=== PATIENT | female | born 1945 | race Caucasian/White ===

== ENCOUNTER 2019-11-16 14:49 | Outpatient (CLI) | payer MEDICARE, OTHER, SELFPAY ==
--- NOTE | 2019-11-16 15:02 | XR_ITS ---
WS: [id number] SCREENING DEXA SCAN [employer] CLINICAL INFORMATION: ASYMPTOMATIC MENOPAUSAL STATE COMPARISON: November 11, 2017 FINDINGS: The L1-L4 bone mineral density measures 1.260 g/cm2. This corresponds to a T score score of 0.7 and Z score of 1.7. Left femoral neck bone mineral density measures 0.890 g/cm2. This corresponds to a T score of -0.9 an d Z score of 0.3. Right femoral neck bone mineral density measures 0.857 g/cm2. This corresponds to a T score -1.2of an d Z score of 0.0. Mean femoral neck bone mineral density measures 0.874 g/cm2. This corresponds to a T score of -1.1 an d Z score of 0.1. XR/XR DEXA axial skeleton* [id number] IMPRESSION: Osteopenia Patient's FRAX calculated 10 year probability for major osteoporotic fracture i s 19.5 % and osteoporotic hip fracture is 4.5%.
== END 2019-11-16 14:50 | disposition home or self-care (01) ==
LOC: RADWPI 14:58
PROVIDERS: Family Provider Family Medicine; PCP Family Medicine; Visit Provider Family Medicine
DX: Z78.0 Asymptomatic menopausal state (principal)
CPT/HCPCS: 77080

== ENCOUNTER → 2019-11-27 08:40 | Outpatient (BNVA) | payer MEDICARE, OTHER, SELFPAY | PROVIDERS: Family Provider Family Medicine; PCP Family Medicine; Visit Provider Anesthesiology | DX: Z76.89 Persons encountering health services in other specified circumstances (principal) | CPT/HCPCS: 99213 ==

== ENCOUNTER → 2020-01-07 08:13 | Outpatient (BNVA) | payer MEDICARE, OTHER, SELFPAY | PROVIDERS: Family Provider Family Medicine; PCP Family Medicine; Visit Provider Anesthesiology | DX: M70.61 Trochanteric bursitis, right hip (principal); M25.551 Pain in right hip; Y93.9 Activity, unspecified; Z79.891 Long term (current) use of opiate analgesic | CPT/HCPCS: 20610; 77003; J1030; J2001; J3490 ==

== ENCOUNTER → 2020-02-10 10:31 | Outpatient (BNVA) | payer MEDICARE, OTHER, SELFPAY | PROVIDERS: Family Provider Family Medicine; PCP Family Medicine; Visit Provider Anesthesiology | DX: G89.29 Other chronic pain (principal); M70.61 Trochanteric bursitis, right hip; M47.816 Spondylosis without myelopathy or radiculopathy, lumbar region; M48.062 Spinal stenosis, lumbar region with neurogenic claudication; M51.17 Intervertebral disc disorders with radiculopathy, lumbosacral region; M50.90 Cervical disc disorder, unspecified, unspecified cervical region; M54.9 Dorsalgia, unspecified; Y93.9 Activity, unspecified; Z79.891 Long term (current) use of opiate analgesic; M54.6 Pain in thoracic spine | CPT/HCPCS: 72070; 99213 ==

== ENCOUNTER 2020-02-10 11:17 | Outpatient (CLI) | payer MEDICARE, OTHER, SELFPAY ==
--- NOTE | 2020-02-10 11:26 | XR_ITS ---
WS: [id number] THORACIC SPINE TECHNIQUE: 3 views of the thoracic spine CLINICAL INFORMATION: pain COMPARISON: October 09, 2017 FINDINGS: Mild thoracic curve convex right. Mild thoracic kyphosis. Disc space heights and vertebral body heigh ts are well preserved. Moderate spondylitic changes. Anterior hypertrophic changes in the mid thoraci c spine. No acute thoracic spine findings. XR/XR thoracic spine 2V [id number] IMPRESSION: Moderate spondylitic changes. No acute thoracic spine findings.
== END 2020-02-10 11:18 | disposition home or self-care (01) ==
LOC: RADWPI 11:21
PROVIDERS: Family Provider Family Medicine; PCP Family Medicine; Visit Provider Anesthesiology
DX: M54.6 Pain in thoracic spine (principal)
CPT/HCPCS: 72070

== ENCOUNTER → 2020-11-17 15:08 | Outpatient (BNVA) | payer MEDICARE, OTHER, SELFPAY | PROVIDERS: PCP Family Medicine; Visit Provider Family Medicine | DX: Z01.812 Encounter for preprocedural laboratory examination (principal); Z20.822 Contact with and (suspected) exposure to COVID-19 | CPT/HCPCS: 87635 ==

== ENCOUNTER 2020-11-21 09:15 | Outpatient (CLI) | payer MEDICARE, OTHER, SELFPAY ==
--- NOTE | 2020-11-21 09:22 | XR_ITS ---
WS: [id number] CHEST 2 VIEWS HISTORY: COUGH/WHEEZING COMPARISON: None available. Lungs: Mild elevation of the LEFT hemidiaphragm with a focal lingular scar. No mass or pneumonia. Cardiac size: Normal. Mediastinum/Aorta: Normal mediastinum. Bones: Slight increase in thoracic kyphosis. XR/XR chest 2V* [id number] IMPRESSION: No acute cardiopulmonary disease. No pneumonia.
--- NOTE | 2020-11-21 13:27 | PFTS_ITS ---
Date of Study:11/21/20 Date of Dictation: MECHANICS: Forced vital capacity (FVC) is normal. Forced expiratory volume in one second (FEV1) is normal. FEV1/FVC is normal. FLOW VOLUME LOOP: Mild scooping at lower lung volumes. LUNG VOLUMES: Total lung capacity (TLC) is increased. Residual volume (RV) is increased. DIFFUSING CAPACITY FOR CARBON MONOXIDE: Normal. INTERPRETATION: The prebronchodilator spirometry is normal. The lung volumes are consistent with hyperinflation and air trapping likely secondary to small airways disease as evidenced by the flow volume loop. Gas exchange (DLCO) is normal. MTDD
== END 2020-11-21 09:16 | disposition home or self-care (01) ==
LOC: RT 09:17
PROVIDERS: PCP Family Medicine; Visit Provider Family Medicine
DX: R05 Cough (principal); R06.2 Wheezing
CPT/HCPCS: 71046; 94010; 94726; 94729

== ENCOUNTER 2021-01-23 12:36 | Outpatient (CLI) | payer MEDICARE, OTHER, SELFPAY ==
--- NOTE | 2021-01-23 12:54 | MM_ITS ---
WS: [id number] BILATERAL SCREENING DIGITAL MAMMOGRAM WITH CAD HISTORY: SCREENING COMPARISON: 03/20/2019 and 01/11/2017 Bilateral CC and MLO views submitted. Computer aided detection analyzed. Breast composition: There are scattered areas of fibroglandular density. No suspicious masses, microc alcifications or architectural distortion. Bilateral scattered calcifications in each breast. MM/[place] [id number] IMPRESSION: BI-RADS: 2-Benign FOLLOW UP: 1 Year Follow-up
== END 2021-01-23 12:37 | disposition home or self-care (01) ==
LOC: RADSHAW 12:43
PROVIDERS: PCP Family Medicine; Visit Provider Family Medicine
DX: Z12.31 Encounter for screening mammogram for malignant neoplasm of breast (principal)
CPT/HCPCS: 77067

== ENCOUNTER 2023-01-22 10:18 | Outpatient (RCR) | payer MEDICARE, OTHER, SELFPAY | END 2023-01-30 23:59 | disposition home or self-care (01) | LOC: SPT 10:18 | PROVIDERS: PCP Family Medicine; Visit Provider Family Medicine | DX: R60.0 Localized edema (principal) | CPT/HCPCS: 29581; 97140; 97161 ==

== ENCOUNTER 2023-01-31 06:00 | Outpatient (RCR) | payer MEDICARE, OTHER, SELFPAY | END 2023-03-01 23:59 | disposition home or self-care (01) | LOC: SPT 06:00 | PROVIDERS: PCP Family Medicine; Visit Provider Family Medicine | DX: R60.0 Localized edema (principal) | CPT/HCPCS: 29581; 97140 ==

== ENCOUNTER 2023-06-17 12:59 | Outpatient (CLI) | payer MEDICARE, SELFPAY ==
--- NOTE | 2023-06-17 13:00 | MM_ITS ---
WS: [id number] BILATERAL 3D TOMOSYNTHESIS DIGITAL SCREENING MAMMOGRAPHY WITH CAD CLINICAL INFORMATION: SCREENING HISTORY: Screening mammogram. No current complaints. COMPARISON: 01/23/2021 TECHNIQUE: Bilateral CC and MLO views. FINDINGS: Scattered fibroglandular densities bilaterally. No suspicious focal mass, asymmetry, calcifications, or architectural distortion. No evidence of malignancy. Punctate and lucent centered calcifications. Vascular calcifications. Biopsy marker LEFT breast. IMPRESSION: MM/[place] [id number] BI-RADS: 2-Benign FOLLOW UP: 1 Year Follow-up Recommend return to annual screening mammography.
== END 2023-06-17 13:00 | disposition home or self-care (01) ==
LOC: MOBLMAM 13:07
PROVIDERS: PCP Family Medicine; Visit Provider Family Medicine
DX: Z12.31 Encounter for screening mammogram for malignant neoplasm of breast (principal)
CPT/HCPCS: 77063; 77067

== ENCOUNTER 2024-06-25 13:00 | Outpatient (CLI) | payer MEDICARE, OTHER, SELFPAY ==
--- NOTE | 2024-06-25 13:00 | MM_ITS ---
WS: [id number] BILATERAL SCREENING DIGITAL TOMOSYNTHESIS MAMMOGRAM WITH CAD HISTORY: SCREENING COMPARISON: 06/17/2023, 01/11/2017, 01/23/2021 Bilateral CC and MLO views with tomosynthesis and synthetic mammography submitted. Computer aided det ection analyzed. Breast composition: There are scattered areas of fibroglandular density. No suspicious masses, microc alcifications or architectural distortion. Heavy calcifications scattered throughout each breast and arterial calcifications. MM/MM scr BI tomosynthesis [id number] IMPRESSION: BI-RADS: 2 - Benign. FOLLOW UP: 1 Year Follow-up
== END 2024-06-25 13:06 | disposition home or self-care (01) ==
PROVIDERS: PCP Family Medicine; Visit Provider Family Medicine
DX: Z12.31 Encounter for screening mammogram for malignant neoplasm of breast (principal); R92.323 Mammographic fibroglandular density, bilateral breasts; R92.1 Mammographic calcification found on diagnostic imaging of breast
CPT/HCPCS: 77063; 77067

== ENCOUNTER 2024-12-21 09:29 | Outpatient (CLI) | payer MEDICARE, OTHER, SELFPAY ==
--- NOTE | 2024-12-21 | ECG_ITS ---
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 Interpretive Statements Lung unchanged pre/post procedure; Intraprocedure shortess of breath; Symptoms resoled by discharge PROCEDURE: At the baseline, the EKG revealed normal sinus rhythm with a poor R wave progression. Possible old septal NV. Some nonspecific T wave changes.. The baseline heart was 90 bpm with a blood pressue of 170/98 mm of Hg Lexiscan was infused over a period of 20 seconds. A total of 0.4 milligrams of Lexiscan was infused. The stress phase was continued for a total of 5 minutes. Heart rate at the end of the stress phase was 107 bpm with a blood pressure 148/83 mm of Hg. The EKG at the peak infusion revealed no significant changes. Sestamibi was injected 20 seconds after the Lexiscan infusion. Heart rate at the end of the recovery phase was in 80s bpm with a blood pressure of 150/73 mm of Hg. CONCLUSION: 1. No significant EKG changes with the LexiScan infusion 2. No LexiScan induced chest pain or cardiac arrhythmia 3. Normal blood pressure and heart rate response 4. Sestamibi/sestamibi perfusion scan pending; see separate report. Electronically Signed On 12-24-2024 17:18:58 CDT by Aury Conrad M.D. [id number]
[2024-12-21 09:46] VITALS: BMI 33.3
--- NOTE | 2024-12-21 09:49 | NMCV_ITS ---
NM agapito perf SPECT r/s* [id number] Idalia Burks Age: 79 Gender: F : 1945 Exam Date: 12/21/2024 11:43 Ordering Phys: Denise Ayala MD Technologist: NEO Hooks Exam Location: [facility] Indications: cp STRESS TEST Please see separate stress test report in [facility] for full findings IMAGE PROTOCOL Rest/Stress 1 Lexiscan Day Radiopharmaceutical Dose (mCi) Administration Site Administered by Rest: Tc-99m 10.5 IV NEO Hooks Sestamibi Stress:Tc-99m 32.9 IV NEO Cannon Sestamibi Rest: 21-Dec-2024 60 Discovery 630 Stress: 21-Dec-2024 30 Discovery 630 0.4mg Lexiscan. Supine position only as patient was unable to lay prone. SPECT RESULTS Technical Quality: Good Raw Data Analysis: Normal Image Corrections: No attenuation or motion correction applied Summed Stress Score: 0 Summed Rest Score: 0 Summed Difference Score: 0 PERFUSION FINDINGS Uniform myocardial tracer uptake with no significant perfusion abnormalities FUNCTIONAL RESULTS (calculated via Gated SPECT) Stress Image LV EF (%): 82 Stress EDV (mL):66 TID: 1.85 Stress ESV (mL):12 FUNCTIONAL FINDINGS: Segmental wall motion analysis revealing no gross wall motion abnormalities IMPRESSIONS 1. Unremarkable Myocardial perfusion imaging 2. Normal LV ejection fraction of 82%. 3. LV wall motion analysis revealing no gross wall motion abnormalities. 4. Normal LV volume 5. Elevated transient ischemic dilatation ratio 1.85 may suggest endocardial ischemia. However the positive predictive value of this finding is low. Consider clinical correlation Advised to copy of the study results from 12/21/2024 Dr Aury Conrad MD [facility] (Electronically Signed) Final Date: 21 December 2024 13:57 Amended: 21 December 2024 14:01 C
[2024-12-21] MEDS: regadenoson 0.4 Mg/5 ml Syringe IVP (11:20)
[2024-12-21 11:30] VITALS: BP 158/65; PULSE 97
== END 2024-12-21 09:30 | disposition home or self-care (01) ==
LOC: CDL 09:35
PROVIDERS: PCP Family Medicine; Visit Provider Family Medicine
DX: R07.9 Chest pain, unspecified (principal); R93.1 Abnormal findings on diagnostic imaging of heart and coronary circulation
CPT/HCPCS: 36415; 78452; 93017; 96374; A9500; J2785

== ENCOUNTER 2025-02-01 13:48 | Outpatient (CLI) | payer MEDICARE, OTHER, SELFPAY ==
--- NOTE | 2025-02-01 13:55 | XR_ITS ---
WS: [id number] XR chest 2V* [id number] REASON FOR EXAM: CHEST PAIN FINDINGS: Chest is unchanged compared to 11/21/2020. Moderate tortuosity and ectasia of the thoracic aorta. Normal heart size. Calcified granulomatous disease bilaterally. No acute pulmonary parenchymal or pleural abnormality. Moderate degenerative spondylosis in the mid and lower thoracic spine. XR/XR chest 2V* [id number] IMPRESSION: Stable chest without acute abnormality.
== END 2025-02-01 13:49 | disposition home or self-care (01) ==
LOC: RAD 13:51
PROVIDERS: PCP Nurse Practitioner Family; Visit Provider Family Medicine
DX: R07.9 Chest pain, unspecified (principal); I77.810 Thoracic aortic ectasia; J84.10 Pulmonary fibrosis, unspecified; M47.894 Other spondylosis, thoracic region
CPT/HCPCS: 71046

== ENCOUNTER 2025-02-18 15:47 | Inpatient (IN) | payer MEDICARE, OTHER, SELFPAY ==
[2025-02-18] VITALS (11 sets, daily range): BP systolic 103–145; BP diastolic 54–80; PULSE 64–162; RESP 16–24; TEMP 34.6–36.5; O2SAT 90–100
--- NOTE | 2025-02-18 16:02 | W.ED.WEAKNES ---
HPI - Weakness General: Chief complaint: Weakness Stated complaint: weakness x 3 days Time Seen by Provider: 02/18/25 15:49 History of Present Illness: 79-year-old female presents with some generalized weakness for about 3 days. She also noticed a change in her urine to become just more dribbles over the last few days. She does have a little bit of a sore throat. EMS reports that when they arrived her blood sugar was 45. She reports she takes oral medications but insulin for her blood sugars. Patient denies any fever or chills or other systemic complaint such as cough, nausea vomiting diarrhea. Associated symptoms: Denies chest pain, chills, fever(s) or headache(s) Review of Systems Const: Reports: fatigue and malaise; Denies: fever(s) or chills ENMT: Reports: throat pain Card: Denies: chest pain or palpitations Resp: Denies: dyspnea or productive cough : Reports: dribbling Musc: Denies: neck pain or back pain Neuro: Denies: headache(s) Psych: Denies: anxiety or depression PFS ED PFSH: Medical History (Updated 02/18/25 @ 19:39 by Simon Hernandez DO) Pain in thoracic spine Chronic back pain Right hip pain Bursitis, trochanteric Lumbar spondylosis Intervertebral disc disorders with radiculopathy, lumbosacral region Spinal stenosis, lumbar region with neurogenic claudication Cervical disc disorder, unspecified, unspecified cervical region Encounter for long-term opiate analgesic use Surgical History Hx of tonsillectomy Hx of vaginal hysterectomy H/O oophorectomy Family History Other CAD (coronary artery disease) Cancer Stroke Social History Smoking and tobacco/nicotine status: never used tobacco/nicotine Alcohol intake: never Substance/Drug Use: never Physical Exam Const: COMMON NORMALS: no acute distress, patient oriented x3 and alert Resp: COMMON NORMALS: normal respiratory effort and clear to auscultation bilaterally AUSCULTATION: clear to auscultation bilaterally Cardio: COMMON NORMALS: regular rate and regular rhythm RATE: regular rate RHYTHM: regular rhythm GI: COMMON NORMALS: Soft to palpation and non-tender PALPATION: Yes Soft to palpation : COMMON NORMALS: Yes no CVA tenderness BLADDER/KIDNEY EXAM: Yes bladder normal to palpation and Yes no CVA tenderness BIMANUAL EXAM - VAGINA & UTERUS: Yes bladder normal to palpation Back/Pelvis: COMMON NORMALS: no CVA tenderness Neuro: COMMON NORMALS: patient oriented x3 SENSORIUM/ORIENTATION: Yes alert Psych: COMMON NORMALS: mental status grossly normal, Normal thought process present and speech normal SPEECH: Yes normal speech THOUGHT PROCESS: Normal thought process present Skin: COMMON NORMALS: no rashes or lesions noted and no wounds GENERAL SKIN EXAM: no rashes or lesions noted Course Vital Signs: Vital signs: Vital Signs Temperature 94.2 F L 02/18/25 16:19 Pulse Rate 84 02/18/25 19:00 Respiratory Rate 24 H 02/18/25 18:00 Blood Pressure 103/78 02/18/25 19:00 Pulse Oximetry 97 02/18/25 19:00 Oxygen Delivery Me thod Room Air 02/18/25 19:00 MDM - Weakness Medical Decision Making Patient's labs were ordered and reviewed. Patient has significant acute kidney injury with elevated BUN, elevated creatinine, elevated potassium. Patient clarified that she has been taking her Lasix 40 mg along with potassium recently. That she has not been drinking as much. Patient will be admitted to Dr. Street for further inpatient management. Patient was stable upon admission to the floor. Lab Data 02/18/25 16:29 02/18/25 16:29 Laboratory Results WBC 11.17 10^3/uL (3.29-11.43) 02/18/25 16: RBC 3.67 10^6/uL (3.85-5.65) L 02/18/25 16:29 Hgb 10.50 g/dL (11.27-16.99) L 02/18/25 16:29 Hct 35.6 % (36-47) L 02/18/25 16:29 MCV 97.0 fl (85-98) 02/18/25 16:29 MCH 28.6 pg (27-33) 02/18/25 16: MCHC 29.5 g/dL (30-55) L 02/18/25 16:29 RDW 13.4 % (12.1-15.1) 02/18/25 16: Plt Count 299 10^3/cmm (157-399) 02/18/25 16: MPV 11.4 fL (7.4-10.4) H 02/18/25 16: Neut % (Auto) 85.6 % 02/18/25 16: Lymph % (Auto) 10.8 % 02/18/25 16: [place] % (Auto) 2.8 % 02/18/25 16: Eos % (Auto) 0.0 % 02/18/25 16: Baso % (Auto) 0.2 % 02/18/25 16: Neut # (Auto) 9.56 10^3/uL (1.8-7.7) H 02/18/25 16: Lymph # (Auto) 1.2 10^3/uL (0.8-4.8) 02/18/25 16: [place] # (Auto) 0.3 10^3/uL (0.2-0.9) 02/18/25 16: Eos # (Auto) 0.0 10^3/uL (0.0-0.8) 02/18/25 16: Baso # (Auto) 0.0 10^3/uL (0.0-0.1) 02/18/25 16: Nucleated RBC % (auto) 0 % 02/18/25 16: Nucleated RBCs # 0.0 /100WBC 02/18/25 16: Sodium 136 mmol/L (136-145) 02/18/25 16: Potassium 6.7 mmol/L (3.5-5.1) H* 02/18/25 16: Chloride 89 mmol/L (98-107) L 02/18/25 16: Carbon Dioxide 11 mmol/L (22-29) L 02/18/25 16: Anion Gap 42.7 (5-19) H 02/18/25 16:29 BUN 63 mg/dL (8-23) H 02/18/25 16: Creatinine 5.7 mg/dL (0.5-0.9) H* 02/18/25 16: GFR Calculation Not Reportable 02/18/25 16: Glucose 87 mg/dL (65-115) 06/19/25 16:29 POC Glucose 140 mg/dL (70-110) H 02/18/25 18:47 Calculated Osmolality 299 mOsm/kg (285-295) H 02/18/25 16: Calcium 11.0 mg/dL (8.5-10.5) H 02/18/25 16:29 Magnesium 1.7 mg/dL (1.7-2.3) 02/18/25 16: Total Bilirubin 0.2 mg/dL (0.15-1.2) 02/18/25 16:29 AST 29 U/L (0-32) 02/18/25 16: ALT 20 U/L (0-33) 02/18/25 16: Alkaline Phosphatase 40 U/L (35-105) 02/18/25 16: Total Protein 7.2 g/dL (6.6-8.7) 02/18/25 16: Albumin 4.2 g/dL (3.5-5.2) 02/18/25 16: Globulin 3.0 g/dL (1.3-4.6) 02/18/25 16:29 Urine Color Yellow (Yellow) 02/18/25 16:03 Urine Appearance Clear (CLEAR) 02/18/25 16:03 Urine pH 6.0 (5-7) 02/18/25 16:03 Ur Specific Ellery 1.011 (1.005-1.030) 02/18/25 16:03 Urine Protein 2+ (Negative) A 02/18/25 16:03 Urine Glucose (UA) Negative (Normal) 02/18/25 16:03 Urine Ketones Trace (Negative) 02/18/25 16:03 Urine Blood Negative (Negative) 02/18/25 16:03 Urine Nitrate Negative (Negative) 02/18/25 16:03 Urine Bilirubin Negative (Negative) 02/18/25 16:03 Urine Urobilinogen 0.2 mg/dL (Negative) 02/18/25 16:03 Ur Leukocyte Esterase Negative (Negative) 02/18/25 16:03 Urine RBC 0-2 /hpf (0-2) 02/18/25 16:03 Urine WBC 0-5 /hpf (0-5) 02/18/25 16:03 Ur Squamous Epith Cells 0-5 /hpf (0-5) 02/18/25 16:03 Amorphous Sediment Not Reportable 02/18/25 16:03 Urine Bacteria None seen /hpf (NONE) 02/18/25 16:03 Hyaline Casts 5.36 /lpf 02/18/25 16:03 Group A Strep Rapid Negative (Negative) 02/18/25 16:10 No radiology studies performed this visit Discharge Plan Discharge Patient Disposition: Admitted As Inpatient Clinical Impression: Acute kidney injury, Dehydration Condition: Stable Coding Level of Care Code ED Business Unit Manager for Chg Fwd Related Data Home Medications ?Medication ?Instructions ?Recorded ?Confirmed albuterol sulfate 90 mcg/actuation 1 inh inhalation .PRN 11/27/19 02/10/20 aerosol inhaler (ProAir HFA) amlodipine 10 mg tablet 10 mg PO DAILY 11/27/19 02/10/20 baclofen 10 mg tablet 10 mg PO DAILY 11/27/19 02/10/20 clonidine 0.1 mg/24 hr weekly transdermal .WEEKLY 11/27/19 02/10/20 transdermal patch diphenhydramine HCl 25 mg tablet 25 mg PO .HS PRN 11/27/19 02/10/20 (Allergy (diphenhydramine)) duloxetine 20 mg capsule,delayed 20 mg PO DAILY 11/27/19 02/10/20 release sprinkle estradiol PO DAILY 11/27/19 02/10/20 gabapentin 100 mg capsule 200 mg PO .HS 11/27/19 02/10/20 gemfibrozil 600 mg tablet 600 mg PO DAILY 11/27/19 02/10/20 glipizide 5 mg tablet 5 mg PO DAILY 11/27/19 02/10/20 hydrocodone 5 mg-acetaminophen 325 1 tab PO TID PRN 11/27/19 02/10/20 mg tablet ([place]) losartan 50 mg tablet 50 mg PO DAILY 11/27/19 02/10/20 meclizine 25 mg tablet 25 mg PO QID PRN 11/27/19 02/10/20 metformin 1,000 mg tablet 1,000 mg PO DAILY 11/27/19 02/10/20 rivaroxaban 20 mg tablet (Xarelto) 20 mg PO DAILY 11/27/19 02/10/20 simvastatin 20 mg tablet 20 mg PO DAILY 11/27/19 02/10/20 sitagliptin phosphate 100 mg 100 mg PO DAILY 11/27/19 02/10/20 tablet (Januvia) tramadol 50 mg tablet 50 mg PO BID PRN 11/27/19 02/10/20 Allergies Allergy/AdvReac Type Severity Reaction Status Date / Time atenolol Allergy Severe ALGY-Anaphy Verified 12/21/24 09:46 laxis lisinopril Allergy Severe ALGY-Anaphy Verified 12/21/24 09:46 laxis
[2025-02-18 16:03] LABS: Glucose Point of Care 101 mg/dL (70-110)
[2025-02-18 16:03] LABS: Glucose Point of Care > 600 mg/dL (70-110)
--- NOTE | 2025-02-18 16:20 | PC.NURSE ---
Pt rectal temp is 94.2, Dr. Hernandez notified, states put warm blankets on pt, charge nurse put extra warm blankets on pt.
[2025-02-18 16:24] LABS: Bilirubin Urine Negative (Negative); Blood Urine Negative (Negative); Glucose Urine UA Negative (Normal); Ketones Urine Trace (Negative); Leukocyte Esterase Urine Negative (Negative); Nitrate Urine Negative (Negative); Protein Urine 2+ (Negative); Specific Gravity, Urine 1.011 (1.005-1.030); Urine Appearance Clear (CLEAR); Urine Color Yellow (Yellow); Urobilinogen Urine 0.2 mg/dL (Negative)
[2025-02-18 16:30] LABS: Add Urine Microscopic? YES; Bacteria Urine None Seen /hpf; Hyaline Casts Urine 5.36 /lpf; RBC Urine 0-2 /hpf (0-2); Squamous Epithelial Cell Urine 0-5 /hpf (0-5); WBC Urine 0-5 /hpf (0-5)
[2025-02-18 16:31] LABS: Rapid Strep A Test Negative (Negative)
[2025-02-18 16:42] LABS: Basophils % 0.2 %; Hematocrit 35.6 % (36-47); Lymphocytes # 1.2 10^3/uL (0.8-4.8); Lymphocytes % 10.8 %; Mean Corpuscular HGB Conc 29.5 g/dL (30-55); Mean Corpuscular Hemoglobin 28.6 pg (27-33); Mean Platelet Volume 11.4 fL (7.4-10.4); Monocytes # 0.3 10^3/uL (0.2-0.9); Monocytes % 2.8 %; Neutrophils # 9.56 10^3/uL (1.8-7.7); Neutrophils % 85.6 %; Nucleated Red Blood Cells % 0 %; Platelet Count 299 10^3/cmm (157-399); Red Blood Count 3.67 10^6/uL (3.85-5.65); Red Cell Distribution Width 13.4 % (12.1-15.1); White Blood Count 11.17 10^3/uL (3.29-11.43)
[2025-02-18 17:13] LABS: Alanine Aminotransferase 20 U/L (0-33); Albumin Level 4.2 g/dL (3.5-5.2); Alkaline Phosphatase 40 U/L (35-105); Anion Gap 42.7 (5-19); Aspartate Amino Transferase 29 U/L (0-32); Blood Urea Nitrogen 63 mg/dL (8-23); Carbon Dioxide 11 mmol/L (22-29); Chloride 89 mmol/L (98-107); Creatinine Clr Calc Pharmacy 7.7315; Glucose 87 mg/dL (65-115); Magnesium 1.7 mg/dL (1.7-2.3); Osmolality Calculated 299 mOsm/kg (285-295); Sodium 136 mmol/L (136-145); Total Bilirubin 0.2 mg/dL (0.15-1.2); Total Protein 7.2 g/dL (6.6-8.7)
[2025-02-18 17:14] LABS: Potassium 6.7 mmol/L (3.5-5.1)
--- NOTE | 2025-02-18 17:19 | ECG_ITS ---
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 Measurements Intervals [place] Rate: 77 P: 0 MN: 0 QRS: 56 QRSD: 82 T: 69 QT: 367 QTc: 416 Interpretive Statements ATRIAL FIBRILLATION LOW QRS VOLTAGE [QRS DEFLECTION < 0.5/1.0 mV IN LIMB/CHEST LEADS] SEPTAL MYOCARDIAL INFARCTION , PROBABLY OLD [40+ ms Q WAVE IN V1/V2] No previous ECG available for comparison Electronically Signed On 02-21-2025 19:31:49 CDT by Sanket Scales M.D. [email or web address] [id number]
--- NOTE | 2025-02-18 17:50 | ECG_ITS ---
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 Measurements Intervals [place] Rate: 86 P: 0 [place]: 0 QRS: 50 QRSD: 98 T: 65 QT: 373 QTc: 449 Interpretive Statements ATRIAL FIBRILLATION LOW QRS VOLTAGE [QRS DEFLECTION < 0.5/1.0 mV IN LIMB/CHEST LEADS] No previous ECG available for comparison Electronically Signed On 02-21-2025 19:43:49 CDT by Sanket Scales M.D. [id number]
[2025-02-18 17:58] LABS: Glucose Point of Care 69 mg/dL (70-110)
[2025-02-18] MEDS: dextrose 10% 250 ML 1000 ML IV ×2 (18:07→22:56)
[2025-02-18] MEDS: calcium gluconate 0.1 gm/mL 10% SDV 10mL 1 GM IVP (18:47)
[2025-02-18] MEDS: insulin regular-human 100 units/1 mL 5 UNIT IVP (18:50)
[2025-02-18 19:04] LABS: Glucose Point of Care 140 mg/dL (70-110)
[2025-02-18] MEDS: sodium chloride 0.9% 500 ML IV (19:49)
[2025-02-18] MEDS: sodium bicarbonate 8.4% syr 150 MEQ in dextrose 5% 200 ML 700 MEQ IV (20:00)
--- NOTE | 2025-02-18 20:09 | PM.HP ---
Providers/Chief Complaint Admitting Physician: Linda Bauer MD--- seen before midnight Primary Care Provider: MAYO Cosem Chief Complaint: weakness x 3 days History of Present Illness Idalia Burks is a 79 year old female with medical history significant for diabetes type 2 on metformin, glipizide, sitagliptin, hypertension on losartan, amlodipine, peripheral edema on Lasix and supplemental potassium to prevent hypokalemia, hypercholesterolemia on statins. All of these renal friendly medication especially when patient is dehydrated landed patient now in an acute renal failure with a creatinine of 5.5 from normal baseline and potassium of 6.7, severe hypoglycemia at 40s per EMS with a repeat in the emergency room of 35 after being optimized on the field hypoglycemic protocol initiated. Patient is admitted to stepdown unit for closer observation and care. I have seen and evaluated patient before midnight initiated gentle hydration with a liter of bicarb drip because of a high anion gap metabolic acidosis at 42 and a bicarb of 11 chloride low at 89 significant for contraction alkalosis depicting severe dehydration patient is doing okay looks good but was really compounded with medication that had led to various acute medical condition that is being on the way of being optimized. Patient undoubtably deserve to be inpatient for days much medical acute conditions for a minimum of 2 midnight stay Review of Systems Narrative: System review of 10 organ system reviewed is significant for acute renal failure, endocrine failure with hypoglycemia Medications/Allergies Home Medications ?Medication ?Instructions ?Recorded ?Confirmed ?Last Taken ?Type albuterol sulfate 90 mcg/actuation 1 inh inhalation Q4H PRN Wheezing 11/27/19 02/19/25 Unknown History aerosol inhaler (ProAir HFA) amlodipine 10 mg tablet 10 mg PO DAILY 11/27/19 02/19/25 Unknown History duloxetine 20 mg capsule,delayed 20 mg PO BEDTIME 11/27/19 02/19/25 Unknown History release sprinkle estradiol 0.25 mg PO DAILY 11/27/19 02/19/25 Unknown History gabapentin 100 mg capsule 200 mg PO BID 11/27/19 02/19/25 Unknown History glipizide 5 mg tablet 10 mg PO DAILY 11/27/19 02/19/25 Unknown History hydrocodone 5 mg-acetaminophen 325 1 tab PO TID PRN Pain 11/27/19 02/19/25 Unknown History mg tablet ([place]) losartan 50 mg tablet 50 mg PO DAILY 11/27/19 02/19/25 Unknown History meclizine 25 mg tablet 25 mg PO QID PRN Dizziness Or 11/27/19 02/19/25 Unknown History Vertigo metformin 1,000 mg tablet 1,000 mg PO BID 11/27/19 02/19/25 Unknown History rivaroxaban 20 mg tablet (Xarelto) 15 mg PO QPM 11/27/19 02/19/25 01/05/20 History simvastatin 20 mg tablet 20 mg PO QPM 11/27/19 02/19/25 Unknown History tramadol 50 mg tablet 50 mg PO BID PRN Pain 11/27/19 02/19/25 Unknown History ascorbic acid (vitamin C) 1,000 mg 1,000 mg PO DAILY 02/19/25 02/19/25 Unknown History tablet (Vitamin C With Yael Hips) biotin 10,000 mcg capsule 10,000 mcg PO DAILY 02/19/25 02/19/25 Unknown History calcium 600 mg (as 2 tab PO DAILY 02/19/25 02/19/25 Unknown History carbonate)-vitamin D3 10 mcg (400 unit) tablet (Calcium 600 + D(3)) cinnamon bark 9,000 mg PO QPM 02/19/25 02/19/25 Unknown History clonidine HCl 0.1 mg tablet 0.1 mg PO BEDTIME 02/19/25 02/19/25 Unknown History cranberry extract 500 mg capsule 500 mg PO DAILY 02/19/25 02/19/25 Unknown History cyanocobalamin (vitamin B-12) 1,000 mcg PO DAILY 02/19/25 02/19/25 Unknown History 1,000 mcg tablet (Vitamin B-12) erythromycin 2 % topical ointment 1 ea topical DAILY PRN Skin 02/19/25 02/19/25 Unknown History Irritation fenofibric acid (choline) 45 mg 45 mg PO DAILY 02/19/25 02/19/25 Unknown History capsule,delayed release folic acid 800 mcg tablet 0.8 mg PO DAILY 02/19/25 02/19/25 Unknown History furosemide 20 mg tablet 20 mg PO DAILY 02/19/25 02/19/25 Unknown History glipizide 5 mg tablet 5 mg PO QPM 02/19/25 02/19/25 Unknown History melatonin 5 mg tablet 5 mg PO BEDTIME 02/19/25 02/19/25 Unknown History mupirocin 2 % topical ointment 1 applic topical TID PRN Skin 02/19/25 02/19/25 Unknown History Irritation nystatin 100,000 unit/gram topical 1 applic topical TID PRN Skin 02/19/25 02/19/25 Unknown History cream Irritation potassium chloride 10 mEq 10 meq PO DAILY 02/19/25 02/19/25 Unknown History tablet,extended release pyridoxine (vitamin B6) 100 mg 100 mg PO DAILY 02/19/25 02/19/25 Unknown History tablet (Vitamin B-6) salmon oil-omega-3 fatty acids 1 cap PO DAILY 02/19/25 02/19/25 Unknown History 1,000 mg-200 mg capsule sitagliptin phosphate 100 mg 100 mg PO DAILY 02/19/25 02/19/25 Unknown History tablet (Januvia) tizanidine 4 mg tablet 4 mg PO BEDTIME 02/19/25 02/19/25 Unknown History triamcinolone acetonide 0.1 % 1 applic topical DAILY PRN Skin 02/19/25 02/19/25 Unknown History topical cream Irritation vit C 250 mg-vit E 90 mg-zinc 40 1 tab PO BID 02/19/25 02/19/25 Unknown History mg-copper 1 lb-[id number] capsule ([facility] AREDS-2) vitamin E (dl, acetate) 180 mg 180 mg PO DAILY 02/19/25 02/19/25 Unknown History (400 unit) capsule zinc 50 mg tablet 50 mg PO DAILY 02/19/25 02/19/25 Unknown History Allergies Allergy/AdvReac Type Severity Reaction Status Date / Time atenolol Allergy Severe ALGY-Anaphy Verified 12/21/24 09:46 laxis lisinopril Allergy Severe ALGY-Anaphy Verified 12/21/24 09:46 laxis PFSH Acute PFSH: Medical History (Updated 02/19/25 @ 06:25 by Linda Bauer MD) Hypertension Diabetes mellitus Pain in thoracic spine Chronic back pain Right hip pain Bursitis, trochanteric Lumbar spondylosis Intervertebral disc disorders with radiculopathy, lumbosacral region Spinal stenosis, lumbar region with neurogenic claudication Cervical disc disorder, unspecified, unspecified cervical region Encounter for long-term opiate analgesic use Surgical History Hx of tonsillectomy Hx of vaginal hysterectomy H/O oophorectomy Family History Other CAD (coronary artery disease) Cancer Stroke Social History Smoking and tobacco/nicotine status: never used tobacco/nicotine Alcohol intake: never Substance/Drug Use: never Vitals/I&O/Wt Last Vital Signs Temp 94.2 F L 02/18/25 16:19 Pulse 90 02/18/25 20:03 Resp 17 02/18/25 20:03 BP 145/76 02/18/25 20:03 Pulse Ox 100 02/18/25 20:03 O2 Del Method Room Air 02/18/25 20:03 02/18/25 02/18/25 02/18/25 06:59 14:59 22:59 Intake Total 250 / 250 Balance 250 / 250 Weight last 48 hrs Weight 74.389 kg Physical Exam Narrative: Patient is weak appearing likely due to multiple metabolic derangement especially acute renal failure and hyperkalemia. HEENT normocephalic atraumatic Neck neck is supple Cardiovascular heart rate is regular Lungs are clear Abdomen is soft nontender nondistended unremarkable Extremities has no edema has good pulses Neurology has no focality patient is pretty much alert awake oriented x 3 follows command and makes needs known and tell her own stories. Data 02/19/25 03:47 02/18/25 22:05 A&P Assessment and plan (1) Acute kidney injury: Admit to stepdown unit because of severe hypoglycemia along with multiple electrolyte imbalances - Acute renal failure be optimized - Keep medication renal friendly - Hold home losartan, metformin, supplemental potassium, glipizide, Lasix, high-dose gabapentin, narcotics - Gentle hydration follow urine 1 L of bicarb drip of 3 Amps in d5w x 1liter [bicarb drip had completed] patient is on D5nss at 100/h - Follow-up with lab studies and optimize accordingly (2) Dehydration: Continue gentle hydration and monitor electrolytes and optimize accordingly (3) Hyperkalemia: - Calcium gluconate an amp given, no EKG changes -Follow electrolytes (4) Hypoglycemia: Patient is with renal failure and at the same time has multiple oral hypoglycemic agent leading to hypoglycemia and that is severe the lowest was earlier this morning with a blood sugar of 12 serium glucose Patient had been on hypoglycemic protocol. Change of IV fluids. Patient doing okay (5) High anion gap metabolic acidosis: Received 1 L of 3 amp of bicarb in a D5 and water patient down was followed up with normal saline gentle hydration at 100/h. Follow lab studies (6) Weakness: Worsening weakness due to acute renal failure with a creatinine of 5.5 from a patient who is with normal renal function and with high anion gap metabolic acidosis patient had gotten too weak and that was the reason for coming to the ED for further evaluation. - Continue to monitor lab studies should be out. For interval changes Plan GI and DVT prophylaxis in place PDMP PDMP Reviewed: Last Reviewed 02/19/25 06:57 by Linda Bauer MD Attestations Medical Necessity Statement*: This is a patient with multiple acute medical problem including acute renal failure kalemia high pulm glycemia requiring inpatient admission to a minimum of 2 midnights Coding Level of Care Code 03868 Diagnoses Acute kidney injury N17.9 Dehydration E86.0 Hyperkalemia E87.5 Hypoglycemia E16.2 High anion gap metabolic acidosis E87.29 Weakness R53.1 Time Spent (min) 60
[2025-02-18 20:10] LABS: Glucose Point of Care 83 mg/dL (70-110)
--- NOTE | 2025-02-18 20:35 | PC.NURSE ---
2023- admitting provider at bedside rquesting bicarb infusion to be stopped and changed to different dilutent and rate . bicarb infusion stopped.
[2025-02-18] MEDS: SODIUM BICARBONATE IV (21:11)
[2025-02-18] MEDS: SODIUM CHLORIDE 0.45% IV (21:11)
[2025-02-18 21:23] LABS: Basophils % 0.1 %; Hematocrit 32.7 % (36-47); Lymphocytes # 1.3 10^3/uL (0.8-4.8); Lymphocytes % 12.7 %; Mean Corpuscular HGB Conc 30.6 g/dL (30-55); Mean Corpuscular Hemoglobin 28.7 pg (27-33); Mean Platelet Volume 10.8 fL (7.4-10.4); Monocytes # 0.6 10^3/uL (0.2-0.9); Monocytes % 5.9 %; Neutrophils # 8.46 10^3/uL (1.8-7.7); Neutrophils % 80.7 %; Nucleated Red Blood Cells % 0 %; Platelet Count 283 10^3/cmm (157-399); Red Blood Count 3.48 10^6/uL (3.85-5.65); Red Cell Distribution Width 13.5 % (12.1-15.1); White Blood Count 10.48 10^3/uL (3.29-11.43)
[2025-02-18 22:43] LABS: Alanine Aminotransferase 21 U/L (0-33); Alkaline Phosphatase 41 U/L (35-105); Anion Gap 42.3 (5-19); Aspartate Amino Transferase 29 U/L (0-32); Blood Urea Nitrogen 62 mg/dL (8-23); Calcium 11.1 mg/dL (8.5-10.5); Carbon Dioxide 14 mmol/L (22-29); Chloride 87 mmol/L (98-107); Globulin 3.1 g/dL (1.3-4.6); Potassium 6.3 mmol/L (3.5-5.1); Sodium 137 mmol/L (136-145); Total Bilirubin 0.2 mg/dL (0.15-1.2); Total Protein 7.1 g/dL (6.6-8.7)
[2025-02-18 22:47] LABS: Osmolality Calculated 297 mOsm/kg (285-295)
[2025-02-18 22:49] LABS: Glucose 12 mg/dL (65-115)
--- NOTE | 2025-02-18 23:07 | PC.NURSE ---
2250- upon entering room to take patient to room patient noted to diaphoretic , states feeling impeding doom and burning to bilateral feet . blood glucose obtained and noted to 35 . pt given orange juice and PRN 250ml D10 iv bolus. Provider [place]ahu notified and will give D50 IV.
--- NOTE | 2025-02-18 23:09 | PC.NURSE ---
2307- pt color improved and patient given amp of D50 , 25grams iv at this time. Verbal order per Dr. Herrera.
[2025-02-18 23:17] LABS: Glucose Point of Care 281 mg/dL (70-110)
[2025-02-18 23:17] LABS: Glucose Point of Care 35 mg/dL (70-110)
[2025-02-18 23:40] LABS: Glucose Point of Care 218 mg/dL (70-110)
[2025-02-18] MEDS: sennosides 8.6 mg Tablet 17.2 MG PO (23:57)
[2025-02-18] MEDS: pantoprazole 40 mg SDV IVP (23:58)
[2025-02-19] VITALS (109 sets, daily range): BP systolic 49–130; BP diastolic 35–85; PULSE 82–112; RESP 8–30; TEMP 36.3–36.6; O2SAT 70–98
[2025-02-19] MEDS: heparin 5,000 unit/mL INJ 1 mL 5000 UNIT SUBCUT (00:02)
[2025-02-19 00:33] LABS: Glucose Point of Care 178 mg/dL (70-110)
[2025-02-19 01:21] LABS: Glucose Point of Care 157 mg/dL (70-110)
[2025-02-19 02:08] LABS: Glucose Point of Care 125 mg/dL (70-110)
[2025-02-19] MEDS: sodium chloride 0.45% 1,000 ML 100 ML IV (02:53)
[2025-02-19 02:59] LABS: Glucose Point of Care 110 mg/dL (70-110)
[2025-02-19 05:03] LABS: Basophils % 0.1 %; Hematocrit 35.1 % (36-47); Lymphocytes # 1.7 10^3/uL (0.8-4.8); Mean Corpuscular HGB Conc 29.1 g/dL (30-55); Mean Corpuscular Hemoglobin 28.2 pg (27-33); Mean Platelet Volume 12.2 fL (7.4-10.4); Monocytes # 1.2 10^3/uL (0.2-0.9); Monocytes % 7.6 %; Neutrophils # 12.34 10^3/uL (1.8-7.7); Neutrophils % 80.6 %; Nucleated Red Blood Cells % 0 %; Platelet Count 315 10^3/cmm (157-399); Red Blood Count 3.62 10^6/uL (3.85-5.65); Red Cell Distribution Width 13.6 % (12.1-15.1); White Blood Count 15.31 10^3/uL (3.29-11.43)
[2025-02-19 05:11] LABS: Glucose Point of Care 97 mg/dL (70-110)
[2025-02-19 05:37] LABS: Magnesium 1.7 mg/dL (1.7-2.3); Phosphorus 4.1 mg/dL (2.5-4.5)
[2025-02-19 05:42] LABS: Estmated Average Glucose 108; Hemoglobin A1C 5.4 % (4.0-6.0)
[2025-02-19 06:11] LABS: Glucose Point of Care 59 mg/dL (70-110)
[2025-02-19] MEDS: dextrose 10% 125 ML 750 ML IV (06:13)
[2025-02-19] MEDS: ondansetron 2 mg/ML SDV 2 mL 4 MG IVP (06:36)
[2025-02-19] MEDS: dextrose 5%-sod chloride 0.9% 1,000 ML 100 ML IV (06:48)
[2025-02-19 06:54] LABS: Glucose Point of Care 80 mg/dL (70-110)
[2025-02-19 08:57] LABS: Glucose Point of Care 137 mg/dL (70-110)
--- NOTE | 2025-02-19 09:04 | PC.SOCIAL ---
IMM Update Pg 2 of IMM updated and reviewed with patient, who verbalized understanding. Copy provided at bedside.
--- NOTE | 2025-02-19 09:54 | PM.CONSULT ---
Providers/Reason For Consult Consulting Physician/Specialty*: mickey silverman md / telenephrology Reason for Consult*: RADHA, acidosis Requesting Physician: Dr Kinza Salmon Attending Physician: Karen Salmon MD Primary Care Provider: MAYO Cosme History of Present Illness History of Present Illness Idalia Burks is a 79 year old female history of type 2 diabetes, hypertension, diabetic neuropathy, diseases but states that she does not have diabetic retinopathy. The patient has known CKD since December 2024. She states that she was told to decrease medications at that time but continues to take metformin. The patient presented with weakness lethargy and not eating was found to have a potassium of 6.7 and a creatinine over 5 hypoglycemia and severe metabolic acidosis. The patient was started on a bicarbonate drip. And renal was called to see the patient now as she is not urinating. The patient states at home she has not been eating well for few days. Now it has been down she is weak lethargic had some nausea. Review of Systems Narrative: Weakness lethargy nausea poor appetite itching abdominal pain poor taste poor appetite no shortness of breath. Medications/Allergies Home Medications ?Medication ?Instructions ?Recorded ?Confirmed ?Last Taken ?Type albuterol sulfate 90 mcg/actuation 1 inh inhalation Q4H PRN Wheezing 11/27/19 02/19/25 Unknown History aerosol inhaler (ProAir HFA) amlodipine 10 mg tablet 10 mg PO DAILY 11/27/19 02/19/25 Unknown History duloxetine 20 mg capsule,delayed 20 mg PO BEDTIME 11/27/19 02/19/25 Unknown History release sprinkle estradiol 0.25 mg PO DAILY 11/27/19 02/19/25 Unknown History gabapentin 100 mg capsule 200 mg PO BID 11/27/19 02/19/25 Unknown History glipizide 5 mg tablet 10 mg PO DAILY 11/27/19 02/19/25 Unknown History hydrocodone 5 mg-acetaminophen 325 1 tab PO TID PRN Pain 11/27/19 02/19/25 Unknown History mg tablet ([place]) losartan 50 mg tablet 50 mg PO DAILY 11/27/19 02/19/25 Unknown History meclizine 25 mg tablet 25 mg PO QID PRN Dizziness Or 11/27/19 02/19/25 Unknown History Vertigo metformin 1,000 mg tablet 1,000 mg PO BID 11/27/19 02/19/25 Unknown History rivaroxaban 20 mg tablet (Xarelto) 15 mg PO QPM 11/27/19 02/19/25 01/05/20 History simvastatin 20 mg tablet 20 mg PO QPM 11/27/19 02/19/25 Unknown History tramadol 50 mg tablet 50 mg PO BID PRN Pain 11/27/19 02/19/25 Unknown History ascorbic acid (vitamin C) 1,000 mg 1,000 mg PO DAILY 02/19/25 02/19/25 Unknown History tablet (Vitamin C With Yael Hips) biotin 10,000 mcg capsule 10,000 mcg PO DAILY 02/19/25 02/19/25 Unknown History calcium 600 mg (as 2 tab PO DAILY 02/19/25 02/19/25 Unknown History carbonate)-vitamin D3 10 mcg (400 unit) tablet (Calcium 600 + D(3)) cinnamon bark 9,000 mg PO QPM 02/19/25 02/19/25 Unknown History clonidine HCl 0.1 mg tablet 0.1 mg PO BEDTIME 02/19/25 02/19/25 Unknown History cranberry extract 500 mg capsule 500 mg PO DAILY 02/19/25 02/19/25 Unknown History cyanocobalamin (vitamin B-12) 1,000 mcg PO DAILY 02/19/25 02/19/25 Unknown History 1,000 mcg tablet (Vitamin B-12) erythromycin 2 % topical ointment 1 ea topical DAILY PRN Skin 02/19/25 02/19/25 Unknown History Irritation fenofibric acid (choline) 45 mg 45 mg PO DAILY 02/19/25 02/19/25 Unknown History capsule,delayed release folic acid 800 mcg tablet 0.8 mg PO DAILY 02/19/25 02/19/25 Unknown History furosemide 20 mg tablet 20 mg PO DAILY 02/19/25 02/19/25 Unknown History glipizide 5 mg tablet 5 mg PO QPM 02/19/25 02/19/25 Unknown History melatonin 5 mg tablet 5 mg PO BEDTIME 02/19/25 02/19/25 Unknown History mupirocin 2 % topical ointment 1 applic topical TID PRN Skin 02/19/25 02/19/25 Unknown History Irritation nystatin 100,000 unit/gram topical 1 applic topical TID PRN Skin 02/19/25 02/19/25 Unknown History cream Irritation potassium chloride 10 mEq 10 meq PO DAILY 02/19/25 02/19/25 Unknown History tablet,extended release pyridoxine (vitamin B6) 100 mg 100 mg PO DAILY 02/19/25 02/19/25 Unknown History tablet (Vitamin B-6) salmon oil-omega-3 fatty acids 1 cap PO DAILY 02/19/25 02/19/25 Unknown History 1,000 mg-200 mg capsule sitagliptin phosphate 100 mg 100 mg PO DAILY 02/19/25 02/19/25 Unknown History tablet (Januvia) tizanidine 4 mg tablet 4 mg PO BEDTIME 02/19/25 02/19/25 Unknown History triamcinolone acetonide 0.1 % 1 applic topical DAILY PRN Skin 02/19/25 02/19/25 Unknown History topical cream Irritation vit C 250 mg-vit E 90 mg-zinc 40 1 tab PO BID 02/19/25 02/19/25 Unknown History mg-copper 1 [id number] capsule ([facility] AREDS-2) vitamin E (dl, acetate) 180 mg 180 mg PO DAILY 02/19/25 02/19/25 Unknown History (400 unit) capsule zinc 50 mg tablet 50 mg PO DAILY 02/19/25 02/19/25 Unknown History Allergies Allergy/AdvReac Type Severity Reaction Status Date / Time atenolol Allergy Severe ALGY-Anaphy Verified 12/21/24 09:46 laxis lisinopril Allergy Severe ALGY-Anaphy Verified 12/21/24 09:46 laxis Current Medications Generic Name Dose Route Start Last Admin Trade Name Freq PRN Reason Stop Dose Admin Docusate Sodium 100 mg 02/19/25 09:00 02/19/25 09:14 Docusate Sodium 100 Mg Capsule PO Not Given BID MANUEL Heparin Sodium (Porcine) 5,000 unit 02/18/25 21:00 02/19/25 00:02 Heparin 5,000 Unit/Ml Inj 1 Ml SUBCUT 5,000 unit Q12H MANUEL Administration Dextrose 250 mls @ 1,000 mls/hr 02/18/25 17:23 02/18/25 18:42 D10w IV Infused PRN PRN Infusion HYPOGLYCEMIA Dextrose 125 mls @ 750 mls/hr 02/18/25 20:01 02/19/25 06:40 D10w IV Infused PRN PRN Infusion Adult Acute Hypoglycemia Nursing Protocol Protocol Dextrose 250 mls @ 1,000 mls/hr 02/18/25 20:01 02/18/25 23:51 D10w IV Infused PRN PRN Infusion Adult Acute Hypoglycemia Nursing Protocol Protocol Dextrose/Sodium Chloride 1,000 mls @ 100 mls/hr 02/19/25 06:30 02/19/25 06:48 Dextrose 5%-Sod Chloride 0.9% IV 100 mls/hr .Q10H MANUEL Administration Insulin Human Lispro 0 unit 02/18/25 21:00 02/19/25 07:46 Insulin Lispro 100 Unit/1 Ml SUBCUT Not Given WM&BEDTIME MANUEL Protocol Ondansetron HCl 4 mg 02/18/25 20:01 02/19/25 06:36 Ondansetron 2 Mg/Ml Sdv 2 Ml IVP 4 mg Q8H PRN Administration vomiting, or N/V if npo Pantoprazole Sodium 40 mg 02/18/25 21:00 02/18/25 23:58 Pantoprazole 40 Mg Sdv IVP 40 mg Q24H MANUEL Administration Senna 17.2 mg 02/18/25 21:00 02/18/25 23:57 Sennosides 8.6 Mg Tablet PO 17.2 mg BEDTIME MANUEL Administration PFSH Acute PFSH: Medical History (Updated 02/19/25 @ 10:07 by Girish Silverman MD) Hypertension Diabetes mellitus Pain in thoracic spine Chronic back pain Right hip pain Bursitis, trochanteric Lumbar spondylosis Intervertebral disc disorders with radiculopathy, lumbosacral region Spinal stenosis, lumbar region with neurogenic claudication Cervical disc disorder, unspecified, unspecified cervical region Encounter for long-term opiate analgesic use Surgical History Hx of tonsillectomy Hx of vaginal hysterectomy H/O oophorectomy Family History Other CAD (coronary artery disease) Cancer Stroke Social History Smoking and tobacco/nicotine status: never used tobacco/nicotine Alcohol intake: never Substance/Drug Use: never Vitals/I&O/Wt Last Vital Signs Temp 97.6 F 02/19/25 07:44 Pulse 87 02/19/25 07:44 Resp 16 02/19/25 07:44 BP 123/57 02/19/25 07:44 Pulse Ox 94 02/19/25 03:56 O2 Del Method Room Air 02/19/25 03:56 02/18/25 02/19/25 02/19/25 22:59 06:59 14:59 Intake Total 425 / 425 3605 / 4030 120 / 120 Output Total 150 / 150 Balance 425 / 425 3455 / 3880 120 / 120 Weight last 48 hrs Weight 80.377 kg Weight 78.97 kg Weight 74.389 kg Physical Exam Narrative: Elderly lady in bed no apparent distress. Vital signs noted and stable. HEENT normocephalic atraumatic. Neck is supple no JVP Lungs are clear to auscultation Heart regular rate and rhythm. Abdomen is soft positive bowel sounds. Extremities 1+ chronic edema. Positive pulses. 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 Data 02/19/25 03:47 02/18/25 22:05 A&P Assessment and plan (1) Acute renal failure: See below acute on chronic renal failure. Will give IV fluid and may need dialysis soon Plan 79-year-old lady diabetic hypertensive, spinal stenosis, chronic back pain. 1. Patient has some degree of CKD retrying to get her old labs however in December she was told she needed to see a cow trimmer and they adjusted her medications decreasing from diuretics. 2. Hypoglycemia likely from her diabetic medications were worsening renal failure please monitor 3. Acute on chronic renal failure can be progression of underlying disease can also be prerenal azotemia versus ATN. Urinalysis reviewed 2+ protein, trace ketones, specific gravity 1011 Will check PTH vitamin D. Will check renal ultrasound. I am concerned that this is CKD progressing to end-stage renal disease I explained to the patient she may need dialysis soon. 4. Hyperkalemia from medications, including potassium and losartan. Also from acute kidney injury and metabolic acidosis. 5. Increased anion gap metabolic acidosis and concern for renal failure question of starvation ketoacidosis -she had mild ketones in urinalysis. Unlikely DKA as she has severe hypoglycemia. I am very concerned for metformin associated lactic acidosis. Will repeat labs at this time if she has a significant lactic acidosis does not improving with bicarbonate fluids then patient will need dialysis. 6. Hypercalcemia can be dry. Will monitor repeat electrolytes. Will check PTH level will check serum protein electrophoresis which can also be a cause of hypercalcemia and renal failure if she has a myeloma. Phosphorus is normal. Magnesium mildly low monitor. 7. Hemoglobin A1c is low this can be because of worsening renal failure and maintaining current medications will check hepatitis serologies. I have a close I am the patient she may need dialysis very soon PDMP PDMP Reviewed: Not Reviewed Consult Attestations Medical Necessity Statement: Acute kidney injury metabolic acidosis hyperkalemia glycemia.The patient is critically ill Time Spent in Patient Care: Greater than 35 minutes (>than 50% of time spent in counselling and/or direct pt care on unit). Coding Level of Care Code Acute Code for Chg Fwd Diagnoses Acute renal failure, unspecified acute renal failure type N17.9 Acute renal failure type: unspecified
[2025-02-19 10:29] LABS: ABG PCO2 32.7 mmHg (35-45); ABG PH Result 7.14 (7.35-7.45); Alveolar-Arterial Oxygen Gradi 5.2 mmHg (5-10); Arterial Blood Gas Hematocrit 30.7 % (37-47); Base Excess ABG -16.5 mmol/L (-2.0-2.0); Blood Gas Allen Test Pos; Blood Gas Operator Identificat glc; Blood Gas Sample Site Radial, right; Blood Gas Sample Type Arterial; Carboxyhemoglobin 0.9 %THgb (0.4-20.1); HCO3 ABG 11.2 mmol/L (22-26); HGB O2 Sat 90.8 % (95-100); Ionized Calcium Level - ABG 1.2 mmol/L (1.1-1.4); Methemoglobin 0.1 % (0.4-1.5); Oxygen Device ROOM AIR; Oxygen Saturation ABG 91.7; PO2 ABG 68.4 mmHg (80.0-100.0); PO2 FiO2 Ratio Arterial Blood 325; Potassium Level - ABG 6.2 mmol/L (3.5-5.0)
[2025-02-19 10:37] LABS: Base Excess VBG -16.2 mmol/L (-3.0-3.0); Blood Gas Operator Identificat BROMA; Blood Gas Sample Site Not specified; HCO3 VBG 11.8 mmol/L (24-28); PCO2 VBG 35.4 mmHg (41-51); PO2 VBG 45.8 mmHg (25-40); Venous Blood Gas Hematocrit 32.2 % (37-47)
[2025-02-19 10:38] LABS: Blood Gas Sample Type Venous
[2025-02-19 10:40] LABS: pH VBG 7.13 (7.32-7.42)
--- NOTE | 2025-02-19 10:54 | PM.CONSULT ---
Providers/Reason For Consult Consulting Physician/Specialty*: General Surgery Reason for Consult*: Acute on chronic kidney injury Attending Physician: Karen Salmon MD Primary Care Provider: MAYO Cosme History of Present Illness History of Present Illness Idalia Burks is a 79 year old female who presents to the hospital with acute on chronic kidney injury was admitted for medical management in this point after evaluation by nephrology has been deemed a candidate for dialysis due to acidosis and oliguria. Review of Systems General: Reports: 10 or more systems reviewed and unremarkable except in HPI and below Medications/Allergies Home Medications ?Medication ?Instructions ?Recorded ?Confirmed ?Last Taken ?Type albuterol sulfate 90 mcg/actuation 1 inh inhalation Q4H PRN Wheezing 11/27/19 02/19/25 Unknown History aerosol inhaler (ProAir HFA) amlodipine 10 mg tablet 10 mg PO DAILY 11/27/19 02/19/25 Unknown History duloxetine 20 mg capsule,delayed 20 mg PO BEDTIME 11/27/19 02/19/25 Unknown History release sprinkle estradiol 0.25 mg PO DAILY 11/27/19 02/19/25 Unknown History gabapentin 100 mg capsule 200 mg PO BID 11/27/19 02/19/25 Unknown History glipizide 5 mg tablet 10 mg PO DAILY 11/27/19 02/19/25 Unknown History hydrocodone 5 mg-acetaminophen 325 1 tab PO TID PRN Pain 11/27/19 02/19/25 Unknown History mg tablet (Olema) losartan 50 mg tablet 50 mg PO DAILY 11/27/19 02/19/25 Unknown History meclizine 25 mg tablet 25 mg PO QID PRN Dizziness Or 11/27/19 02/19/25 Unknown History Vertigo metformin 1,000 mg tablet 1,000 mg PO BID 11/27/19 02/19/25 Unknown History rivaroxaban 20 mg tablet (Xarelto) 15 mg PO QPM 11/27/19 02/19/25 01/05/20 History simvastatin 20 mg tablet 20 mg PO QPM 11/27/19 02/19/25 Unknown History tramadol 50 mg tablet 50 mg PO BID PRN Pain 11/27/19 02/19/25 Unknown History ascorbic acid (vitamin C) 1,000 mg 1,000 mg PO DAILY 02/19/25 02/19/25 Unknown History tablet (Vitamin C With Yael Hips) biotin 10,000 mcg capsule 10,000 mcg PO DAILY 02/19/25 02/19/25 Unknown History calcium 600 mg (as 2 tab PO DAILY 02/19/25 02/19/25 Unknown History carbonate)-vitamin D3 10 mcg (400 unit) tablet (Calcium 600 + D(3)) cinnamon bark 9,000 mg PO QPM 02/19/25 02/19/25 Unknown History clonidine HCl 0.1 mg tablet 0.1 mg PO BEDTIME 02/19/25 02/19/25 Unknown History cranberry extract 500 mg capsule 500 mg PO DAILY 02/19/25 02/19/25 Unknown History cyanocobalamin (vitamin B-12) 1,000 mcg PO DAILY 02/19/25 02/19/25 Unknown History 1,000 mcg tablet (Vitamin B-12) erythromycin 2 % topical ointment 1 ea topical DAILY PRN Skin 02/19/25 02/19/25 Unknown History Irritation fenofibric acid (choline) 45 mg 45 mg PO DAILY 02/19/25 02/19/25 Unknown History capsule,delayed release folic acid 800 mcg tablet 0.8 mg PO DAILY 02/19/25 02/19/25 Unknown History furosemide 20 mg tablet 20 mg PO DAILY 02/19/25 02/19/25 Unknown History glipizide 5 mg tablet 5 mg PO QPM 02/19/25 02/19/25 Unknown History melatonin 5 mg tablet 5 mg PO BEDTIME 02/19/25 02/19/25 Unknown History mupirocin 2 % topical ointment 1 applic topical TID PRN Skin 02/19/25 02/19/25 Unknown History Irritation nystatin 100,000 unit/gram topical 1 applic topical TID PRN Skin 02/19/25 02/19/25 Unknown History cream Irritation potassium chloride 10 mEq 10 meq PO DAILY 02/19/25 02/19/25 Unknown History tablet,extended release pyridoxine (vitamin B6) 100 mg 100 mg PO DAILY 02/19/25 02/19/25 Unknown History tablet (Vitamin B-6) salmon oil-omega-3 fatty acids 1 cap PO DAILY 02/19/25 02/19/25 Unknown History 1,000 mg-200 mg capsule sitagliptin phosphate 100 mg 100 mg PO DAILY 02/19/25 02/19/25 Unknown History tablet (Januvia) tizanidine 4 mg tablet 4 mg PO BEDTIME 02/19/25 02/19/25 Unknown History triamcinolone acetonide 0.1 % 1 applic topical DAILY PRN Skin 02/19/25 02/19/25 Unknown History topical cream Irritation vit C 250 mg-vit E 90 mg-zinc 40 1 tab PO BID 02/19/25 02/19/25 Unknown History mg-copper 1 [id number] capsule ([facility] AREDS-2) vitamin E (dl, acetate) 180 mg 180 mg PO DAILY 02/19/25 02/19/25 Unknown History (400 unit) capsule zinc 50 mg tablet 50 mg PO DAILY 02/19/25 02/19/25 Unknown History Allergies Allergy/AdvReac Type Severity Reaction Status Date / Time atenolol Allergy Severe ALGY-Anaphy Verified 12/21/24 09:46 laxis lisinopril Allergy Severe ALGY-Anaphy Verified 12/21/24 09:46 laxis Current Medications Generic Name Dose Route Start Last Admin Trade Name Freq PRN Reason Stop Dose Admin Docusate Sodium 100 mg 02/19/25 09:00 02/19/25 09:14 Docusate Sodium 100 Mg Capsule PO Not Given BID MANUEL Heparin Sodium (Porcine) 5,000 unit 02/18/25 21:00 02/19/25 00:02 Heparin 5,000 Unit/Ml Inj 1 Ml SUBCUT 5,000 unit Q12H MANUEL Administration Dextrose 250 mls @ 1,000 mls/hr 02/18/25 17:23 02/18/25 18:42 D10w IV Infused PRN PRN Infusion HYPOGLYCEMIA Dextrose 125 mls @ 750 mls/hr 02/18/25 20:01 02/19/25 06:40 D10w IV Infused PRN PRN Infusion Adult Acute Hypoglycemia Nursing Protocol Protocol Dextrose 250 mls @ 1,000 mls/hr 02/18/25 20:01 02/18/25 23:51 D10w IV Infused PRN PRN Infusion Adult Acute Hypoglycemia Nursing Protocol Protocol Insulin Human Lispro 0 unit 02/18/25 21:00 02/19/25 07:46 Insulin Lispro 100 Unit/1 Ml SUBCUT Not Given WM&BEDTIME MANUEL Protocol Ondansetron HCl 4 mg 02/18/25 20:01 02/19/25 06:36 Ondansetron 2 Mg/Ml Sdv 2 Ml IVP 4 mg Q8H PRN Administration vomiting, or N/V if npo Pantoprazole Sodium 40 mg 02/18/25 21:00 02/18/25 23:58 Pantoprazole 40 Mg Sdv IVP 40 mg Q24H MANUEL Administration Senna 17.2 mg 02/18/25 21:00 02/18/25 23:57 Sennosides 8.6 Mg Tablet PO 17.2 mg BEDTIME MANUEL Administration PFSH Acute PFSH: Medical History (Updated 02/19/25 @ 10:07 by Girish Tan MD) Hypertension Diabetes mellitus Pain in thoracic spine Chronic back pain Right hip pain Bursitis, trochanteric Lumbar spondylosis Intervertebral disc disorders with radiculopathy, lumbosacral region Spinal stenosis, lumbar region with neurogenic claudication Cervical disc disorder, unspecified, unspecified cervical region Encounter for long-term opiate analgesic use Surgical History Hx of tonsillectomy Hx of vaginal hysterectomy H/O oophorectomy Family History Other CAD (coronary artery disease) Cancer Stroke Social History Smoking and tobacco/nicotine status: never used tobacco/nicotine Alcohol intake: never Substance/Drug Use: never Vitals/I&O/Wt Last Vital Signs Temp 97.6 F 02/19/25 07:44 Pulse 87 02/19/25 07:44 Resp 16 02/19/25 07:44 BP 123/57 02/19/25 07:44 Pulse Ox 94 02/19/25 03:56 O2 Del Method Room Air 02/19/25 03:56 02/18/25 02/19/25 02/19/25 22:59 06:59 14:59 Intake Total 425 / 425 3605 / 4030 120 / 120 Output Total 150 / 150 Balance 425 / 425 3455 / 3880 120 / 120 Weight last 48 hrs Weight 177 lb 3.2 oz Weight 174 lb 1.6 oz Weight 164 lb Physical Exam Narrative: General : Patient is well developed , no acute distress, oriented x3 Head : Normal cephalic, a-traumatic. Nose : Mucous membranes are without erythema. Lungs : Equal chest rise bilaterally, no use of accessory muscles, trachea is midline. CV : Rate and rhythm are normal. Abdomen : Soft, ND, NT, no g/r/m Extremities : No edema. Upper extremities are normal bilaterally. Back : non-tender to palpation, no CVA tenderness. Data 02/19/25 03:47 02/18/25 22:05 A&P Assessment and plan (1) Acute kidney injury: (2) Hyperkalemia: (3) High anion gap metabolic acidosis: Plan After complete history physical examination and review of all available clinical data the following is my assessment. Patient will benefit from dialysis catheter placement for dialysis initiation. I discussed all risk benefits of the procedure including the risk of bleeding, infection, catheter malfunction, pneumothorax, need for tube thoracostomy, need for additional surgical interventions, injury to adjacent structures, 1 full cannulation of arterial system. Patient shows understanding she agrees with the plan. Patient is due to be transferred to the ICU when she is in the ICU we will proceed with catheter placement. PDMP PDMP Reviewed: Not Reviewed Coding Level of Care Code Acute Code for [facility] Fwd Diagnoses Acute kidney injury N17.9 Hyperkalemia E87.5 High anion gap metabolic acidosis E87.29
[2025-02-19 10:55] LABS: Basophils % 0.1 %; Hematocrit 34.6 % (36-47); Lymphocytes # 1.6 10^3/uL (0.8-4.8); Lymphocytes % 9.7 %; Mean Corpuscular HGB Conc 29.2 g/dL (30-55); Mean Corpuscular Hemoglobin 28.5 pg (27-33); Mean Corpuscular Volume 97.5 fl (85-98); Mean Platelet Volume 11.4 fL (7.4-10.4); Monocytes # 0.9 10^3/uL (0.2-0.9); Monocytes % 5.5 %; Neutrophils # 13.83 10^3/uL (1.8-7.7); Neutrophils % 84.1 %; Nucleated Red Blood Cells % 0 %; Platelet Count 321 10^3/cmm (157-399); Red Blood Count 3.55 10^6/uL (3.85-5.65); Red Cell Distribution Width 13.6 % (12.1-15.1); White Blood Count 16.45 10^3/uL (3.29-11.43)
[2025-02-19 11:21] LABS: Alanine Aminotransferase 21 U/L (0-33); Albumin Level 3.7 g/dL (3.5-5.2); Alkaline Phosphatase 39 U/L (35-105); Anion Gap 40.5 (5-19); Aspartate Amino Transferase 30 U/L (0-32); Blood Urea Nitrogen 62 mg/dL (8-23); Carbon Dioxide 12 mmol/L (22-29); Chloride 86 mmol/L (98-107); Complement C3 84 mg/dL (90-180); Creatine Phosphokinase 107 U/L (26-192); Creatinine Clr Calc Pharmacy 8.6404; Globulin 2.7 g/dL (1.3-4.6); Glucose 92 mg/dL (65-115); Magnesium 1.5 mg/dL (1.7-2.3); Osmolality Calculated 291 mOsm/kg (285-295); Phosphorus 4.1 mg/dL (2.5-4.5); Sodium 132 mmol/L (136-145); Total Bilirubin 0.2 mg/dL (0.15-1.2); Total Protein 6.4 g/dL (6.6-8.7)
[2025-02-19 11:25] LABS: Lactate (Lactic Acid level) 14.5 mmol/L (0.5-2.2)
[2025-02-19 11:26] LABS: Potassium 6.5 mmol/L (3.5-5.1)
[2025-02-19 11:49] LABS: Hepatitis B Surface AB < 3.5 (11.5-1000); Hepatitis B Surface Antigen Non-Reactive (Nonreactive)
[2025-02-19 11:50] LABS: Hepatitis C Virus Antibody Non-Reactive (Nonreactive)
--- NOTE | 2025-02-19 11:52 | P.PN_ITS ---
Subjective 2 Subjective: Seen in morning. Patient states she has been sick for a few days possibly greater than a week. States she has not been peeing very much and has felt very nauseated. She has had episodes of low sugar as well. Vitals/I&O/Wt Last Vital Signs Temp 97.6 F 02/19/25 07:44 Pulse 87 02/19/25 07:44 Resp 16 02/19/25 07:44 BP 123/57 02/19/25 07:44 Pulse Ox 94 02/19/25 03:56 O2 Del Method Room Air 02/19/25 03:56 02/18/25 02/19/25 02/19/25 22:59 06:59 14:59 Intake Total 425 / 425 3605 / 4030 120 / 120 Output Total 150 / 150 Balance 425 / 425 3455 / 3880 120 / 120 Weight last 48 hrs Weight 80.377 kg Weight 78.97 kg Weight 74.389 kg Physical Exam 2 Narrative: General: Alert oriented x3, patient seen laying in bed holding a vomit bag HEENT: Normocephalic, atraumatic, EOMI, breathing room air Cardio: Regular rate rhythm, normal S1-S2, Respiratory: Clear to auscultation bilaterally no wheezes or rhonchi. GI: Abdomen soft, nontender, nondistended, bowel sounds + Behavior: Appropriate and cooperative Extremities: Trace edema bilateral lower extremities. Data 02/19/25 10:34 02/19/25 10:34 A&P Assessment and plan (1) Acute kidney injury: Admit to stepdown unit because of severe hypoglycemia along with multiple electrolyte imbalances - Acute renal failure be optimized - Keep medication renal friendly - Hold home losartan, metformin, supplemental potassium, glipizide, Lasix, high- dose gabapentin, narcotics - Gentle hydration follow urine 1 L of bicarb drip of 3 Amps in d5w x 1liter [bicarb drip had completed] patient is on D5nss at 100/h - Follow-up with lab studies and optimize accordingly (2) Dehydration: Continue gentle hydration and monitor electrolytes and optimize accordingly (3) Hyperkalemia: - Calcium gluconate an amp given, no EKG changes -Follow electrolytes (4) Hypoglycemia: Patient is with renal failure and at the same time has multiple oral hypoglycemic agent leading to hypoglycemia and that is severe the lowest was earlier this morning with a blood sugar of 12 serium glucose Patient had been on hypoglycemic protocol. Change of IV fluids. Patient doing okay (5) High anion gap metabolic acidosis: Received 1 L of 3 amp of bicarb in a D5 and water patient down was followed up with normal saline gentle hydration at 100/h. Follow lab studies (6) Weakness: Worsening weakness due to acute renal failure with a creatinine of 5.5 from a patient who is with normal renal function and with high anion gap metabolic acidosis patient had gotten too weak and that was the reason for coming to the ED for further evaluation. - Continue to monitor lab studies should be out. For interval changes (7) Acute renal failure: (8) Metabolic acidosis: (9) Lactic acidosis: (10) Anemia: (11) Oliguria: Plan GI and DVT prophylaxis in place 02/19/2025 #High anion gap metabolic acidosis #Acute renal failure #Hyperkalemia secondary to renal failure #Lactic acidosis #Oliguric on admission #Severe hyperglycemia #Leukocytosis #Anemia #Possible history of CKD ? I will obtain stat labs for the patient: CBC, CMP, museum, phosphorus, VBG. ? Placed on bicarb drip with 150 mill equivalent 100 cc/h stat ? Nephrology stat consult ? Consult general surgery for dialysis catheter ? We will need to dialyze this patient secondary to acidosis, hyperkalemia, worsening renal function ? Check iron studies iron TIBC ferritin. Hemoglobin 10.1. Continue to monitor, check FOBT ? Transfer patient to ICU ? Place Higgins catheter for accurate urine output ? We do not have previous labs on the patient. I will try to track down patient's primary care doctor and obtain copies of previous labs. ? Recheck CBC CMP postdialysis. ?Hold nephrotoxic agents. Stop sitagliptin, metformin, glipizide ? Hold amlodipine, clonidine. Full code DVT prophylaxis: Heparin SQ twice daily PDMP PDMP Reviewed: Not Reviewed Attestations 2 Medical Necessity Statement*: Acute renal failure, initiation of dialysis. Patient is acidotic with lactic acidosis, metabolic acidosis, hyperkalemia and his acute renal failure. I expect greater than 2 to 3 days in the hospital. Critical Care Time: The high probability of a clinically significant, sudden or life threatening deterioration of the patient's [renal] system(s) required my full and direct attention, intervention and personal management. The critical care time is as shown. This time is in addition to time spent performing any reported procedures but includes the following: [x] Data and vital sign review and interpretation [x] Patient assessment, examination and intervention [x] Documentation [x] Medication orders and management Critical Care Time (min): 45 Coding Level of Care Code Acute Code for [facility] Fwd Diagnoses Acute kidney injury N17.9 Dehydration E86.0 Hyperkalemia E87.5 Hypoglycemia E16.2 High anion gap metabolic acidosis E87.29 Weakness R53.1 Acute renal failure, unspecified acute renal failure type N17.9 Acute renal failure type: unspecified Metabolic acidosis E87.20 Lactic acidosis E87.20 Anemia D64.9 Oliguria R34
[2025-02-19 11:55] LABS: 25 Hydroxy Vitamin D 50 ng/mL (30-100)
[2025-02-19] MEDS: lactated ringers 500 ML 999 ML IV (12:07)
[2025-02-19] MEDS: sodium bicarbonate 150 MEQ in dextrose 5% 1,000 ML 100 MEQ IV (12:08)
[2025-02-19 12:12] LABS: Glucose Point of Care 106 mg/dL (70-110)
[2025-02-19 12:26] LABS: Ferritin 46 ng/mL (15-150); Iron 28 ug/dL (37-145); Percent Saturation 9.4 % (20-50); Total Iron Binding Capacity 296 mcg/dl; Unsaturated Iron Binding 268 ug/dL (112-347)
--- NOTE | 2025-02-19 12:39 | PM.ACPR ---
Procedure/Consent Time out: Time Out Performed: Yes Consent: Consent for Procedure: Consent obtained from patient, Risks & Benefits reviewed and Agrees to proceed with procedure Procedure Narrative: After all risk benefits were discussed and documented in my preop note we decided to proceed with dialysis catheter placement. The patient was in a supine position. The right groin was prepped and draped in the usual sterile fashion and a timeout was conducted. I proceeded to identify the right femoral vein with the ultrasound, I then infiltrated local anesthesia in the insertion site and then with an 18-gauge needle I proceeded to cannulate the vein, 2 attempts were required as the vein was deep and difficult to cannulate. Once the vein was cannulated I passed the wire through the needle into the vein and then I remove the needle. The position of the wire was verified with ultrasound. A 0.5 cm incision was made in the wire insertion site. I then dilated the tract with serial sizes of dilators and subsequently and advance at 20 cm dual-lumen dialysis catheter into the vein over the wire. The wire was then removed. The catheter was testing and both lumens were working well. The catheter was fixed in place with #3-0 silk, Biopatch and sterile dressing was applied. At the end of the procedure all counts were correct the patient tolerated well the procedure and was kept in the ICU in critical but stable condition Acute Procedures Epistaxis Control: Time out performed: Yes
--- NOTE | 2025-02-19 12:43 | PC.NURSE ---
transferred to ICU-10 Report called to IAN Waters and also at bedside. [facility]shered pt to ICU 10 around 10:[address] Salmon to give bolus of LR 500 mls then start Bicarb drip. Relayed this message to Jt.
[2025-02-19] MEDS: iron sucrose 200 MG in sodium chloride 0.9% (100 ml) 100 ML 220 MG IV (14:13)
[2025-02-19] MEDS: albumin 12.5 GM/50 ML VIAL IV (14:30)
[2025-02-19] MEDS: HYDROcodone-acetaminophen 5-325 mg Tablet 1 TAB PO (14:58)
--- NOTE | 2025-02-19 15:16 | PC.OT ---
Hold OT evalaution due to transfer to ICU; will attempt again at later time.
--- NOTE | 2025-02-19 15:30 | PC.NURSE ---
received patient from [facility] staff at approximately 1030. Patient is alert and oriented to person, place, time, and situation. BP: 109/66. HR: 95, RR: 18, SPO2: 96 on room air, Temp:97.3. Started LR bolus and bicarb drip. BMP has been drawn and is currently pending results, potassium results will determining factor if dialysis is needed. NUrse educated patient on plan of care.
[2025-02-19] MEDS: docusate sodium 100 mg Capsule PO (17:29)
[2025-02-19 17:35] LABS: Glucose Point of Care 159 mg/dL (70-110)
[2025-02-19] MEDS: insulin lispro 100 unit/1 mL SUBCUT ×2 (17:47→21:18)
--- NOTE | 2025-02-19 18:30 | PC.NURSE ---
SHift SUmmary: Recieved patient from [facility] senior living through the day. Dialysis catheter placed. Received dialysis which was uneventful. Lactic to be drawn at 1900. Bicarb is currently paused, may be restarting depending on lactic result.
[2025-02-19 19:02] LABS: Lactate (Lactic Acid level) 9.6 mmol/L (0.5-2.2)
--- NOTE | 2025-02-19 19:15 | PC.NURSE ---
Oozing at dialysis catheter site present, Dr. Salmon contacted to hold heparin dose this pm. Reviewed lactic of 9.[address] Tan n/o continue previous d5 bicarb drip at 75 ml/hr will possible do dialysis in am after lactic check.
[2025-02-19] MEDS: pantoprazole 40 mg SDV IVP (21:19)
[2025-02-19 21:41] LABS: Glucose Point of Care 148 mg/dL (70-110)
[2025-02-20] VITALS (28 sets, daily range): BP systolic 71–169; BP diastolic 44–116; PULSE 87–128; RESP 18–32; TEMP 36.6–37; O2SAT 77–98
[2025-02-20 05:08] LABS: Basophils % 0.2 %; Eosinophils % 0.2 %; Hematocrit 31.7 % (36-47); Lymphocytes # 1.3 10^3/uL (0.8-4.8); Lymphocytes % 11.1 %; Mean Corpuscular HGB Conc 29.7 g/dL (30-55); Mean Corpuscular Hemoglobin 29.5 pg (27-33); Mean Corpuscular Volume 99.4 fl (85-98); Mean Platelet Volume 11.4 fL (7.4-10.4); Monocytes # 1.3 10^3/uL (0.2-0.9); Monocytes % 11.3 %; Neutrophils # 8.67 10^3/uL (1.8-7.7); Neutrophils % 76.7 %; Nucleated Red Blood Cells % 0 %; Platelet Count 235 10^3/cmm (157-399); Red Blood Count 3.19 10^6/uL (3.85-5.65); Red Cell Distribution Width 13.6 % (12.1-15.1)
[2025-02-20 05:24] LABS: Alanine Aminotransferase 18 U/L (0-33); Albumin Level 3.4 g/dL (3.5-5.2); Alkaline Phosphatase 38 U/L (35-105); Aspartate Amino Transferase 29 U/L (0-32); Blood Urea Nitrogen 47 mg/dL (8-23); Calcium 8.7 mg/dL (8.5-10.5); Carbon Dioxide 21 mmol/L (22-29); Chloride 91 mmol/L (98-107); Creatinine Clr Calc Pharmacy 11.5438; Globulin 2.6 g/dL (1.3-4.6); Glucose 49 mg/dL (65-115); Magnesium 1.6 mg/dL (1.7-2.3); Osmolality Calculated 272 mOsm/kg (285-295); Phosphorus 2.1 mg/dL (2.5-4.5); Sodium 126 mmol/L (136-145); Total Bilirubin 0.3 mg/dL (0.15-1.2)
[2025-02-20 05:26] LABS: Anion Gap 19.9 (5-19); Potassium 5.9 mmol/L (3.5-5.1)
[2025-02-20 07:56] LABS: Glucose Point of Care 44 mg/dL (70-110)
[2025-02-20 07:56] LABS: Glucose Point of Care 47 mg/dL (70-110)
--- NOTE | 2025-02-20 08:07 | P.PN_ITS ---
Subjective 2 Subjective: Postoperative day 1 status post placement of temporary dialysis catheter in the right femoral vein. Patient is doing well overnight was able to receive dialysis no significant issues Vitals/I&O/Wt Last Vital Signs Temp 97.9 F 02/20/25 04:00 Pulse 93 02/20/25 06:00 Resp 22 H 02/20/25 05:00 BP 94/58 02/20/25 05:00 Pulse Ox 97 02/20/25 05:00 O2 Del Method Nasal Cannula 02/20/25 05:00 O2 Flow Rate 2 02/20/25 05:00 02/19/25 02/20/25 02/20/25 22:59 06:59 14:59 Intake Total 1550 / 2223.333 100 / 2323.333 Output Total 752 / 1252 800 / 2052 Balance 798 / 971.333 -700 / 271.333 Weight last 48 hrs Weight 178 lb 8 oz Weight 180 lb 1.883 oz Weight 177 lb 3.2 oz Weight 174 lb 1.6 oz Weight 164 lb Physical Exam 2 GI: OTHER: Benign abdominal exam abdomen soft nontender nondistended. In the right groin there is a nontunneled dialysis catheter that appears healthy no significant oozing. Urinary Catheter Management: Higgins Latex Free: Cath Placed During This Visit: yes Reason for Continuing Indwelling Catheter: Accurate Measurement of Urinary Output in Critically Ill Patients Urinary Catheter Date of Insertion: 02/19/25 Urinary Catheter Time of Insertion: 10:14 Data 02/20/25 04:39 02/20/25 04:39 Micro: Microbiology 02/18/25 16:10 Group A Streptococcus Rapid Screen - Preliminary Throat A&P Assessment and plan (1) Acute kidney injury: (2) Oliguria: (3) Lactic acidosis: (4) Anemia: Plan Patient is doing well was able to receive dialysis, there was minimal bleeding around the catheter overnight, dose of heparin was held and now catheter insertion site appears healthy with no significant bleeding. Plan will be for continued monitoring. Patient can continue to receive hemodialysis through the temporary dialysis catheter as needed and in the case of an need for permanent hemodialysis we will discuss the possibility of a tunneled dialysis catheter placement. Patient shows understanding agrees with plan. PDMP PDMP Reviewed: Not Reviewed Attestations 2 Medical Necessity Statement*: Per medical Coding Level of Care Code Acute Code for [facility] Fwd Diagnoses Acute kidney injury N17.9 Oliguria R34 Lactic acidosis E87.20 Anemia D64.9
[2025-02-20] MEDS: heparin 5,000 unit/mL INJ 1 mL 5000 UNIT SUBCUT ×2 (08:22→21:24)
[2025-02-20] MEDS: docusate sodium 100 mg Capsule PO ×2 (08:22→17:36)
[2025-02-20] MEDS: sodium bicarbonate 150 MEQ in dextrose 5% 1,000 ML 75 MEQ IV (08:58)
[2025-02-20 09:10] LABS: Glucose Point of Care 72 mg/dL (70-110)
--- NOTE | 2025-02-20 09:33 | P.PN_ITS ---
Subjective 2 Subjective: The patient was seen and examined. She states she is feeling better since dialysis yesterday. Her sugars still remain low but improving. She is urinating. Denies nausea or vomiting. Denies fevers or chills. Denies diarrhea. Medications: Reviewed: Yes Medication Review Details: Current Medications Hydrocodone Bitart/Acetaminophen (Hydrocodone-Acetaminophen 5-325 Mg Tablet) 1 tab PO Q8H PRN PRN Reason: MODERATE PAIN Last Admin: 02/19/25 14:58 Dose: 1 tab Docusate Sodium (Docusate Sodium 100 Mg Capsule) 100 mg PO BID MANUEL Last Admin: 02/20/25 08:22 Dose: 100 mg Glucagon (Glucagon 1 Mg/Ml Kit 1 Ml) 1 mg IM ONCE PRN; Protocol PRN Reason: Adult Acute Hypoglycemia Nursing Prot. Heparin Sodium (Porcine) (Heparin 5,000 Unit/Ml Inj 1 Ml) 5,000 unit SUBCUT Q12H MANUEL Last Admin: 02/20/25 08:22 Dose: 5,000 unit Dextrose (D10w) 250 mls @ 1,000 mls/hr IV PRN PRN PRN Reason: HYPOGLYCEMIA Last Infusion: 02/18/25 18:42 Dose: Infused Dextrose (D5w) 500 mls @ 0 mls/hr IV ONCE PRN; Protocol PRN Reason: Adult Acute Hypoglycemia Prot Dextrose (D10w) 125 mls @ 750 mls/hr IV PRN PRN; Protocol PRN Reason: Adult Acute Hypoglycemia Nursing Protocol Last Infusion: 02/19/25 06:40 Dose: Infused Dextrose (D10w) 250 mls @ 1,000 mls/hr IV PRN PRN; Protocol PRN Reason: Adult Acute Hypoglycemia Nursing Protocol Last Infusion: 02/18/25 23:51 Dose: Infused Iron Sucrose 200 mg/ Sodium (Chloride) 110 mls @ 220 mls/hr IV Q24H MANUEL Stop: 02/23/25 14:29 Last Infusion: 02/19/25 18:59 Dose: Infused Insulin Human Lispro (Insulin Lispro 100 Unit/1 Ml) 0 unit SUBCUT WM&BEDTIME MANUEL; Protocol Last Admin: 02/20/25 07:40 Dose: Not Given Ondansetron HCl (Ondansetron 2 Mg/Ml Sdv 2 Ml) 4 mg IVP Q8H PRN PRN Reason: vomiting, or N/V if npo Last Admin: 02/19/25 06:36 Dose: 4 mg Pantoprazole Sodium (Pantoprazole 40 Mg Sdv) 40 mg IVP Q24H MANUEL Last Admin: 02/19/25 21:19 Dose: 40 mg Senna (Sennosides 8.6 Mg Tablet) 17.2 mg PO BEDTIME MANUEL Last Admin: 02/19/25 21:21 Dose: Not Given Vitals/I&O/Wt Last Vital Signs Temp 97.9 F 02/20/25 04:00 Pulse 100 02/20/25 09:00 Resp 25 H 02/20/25 09:00 BP 114/59 02/20/25 09:00 Pulse Ox 77 L 02/20/25 07:00 O2 Del Method Nasal Cannula 02/20/25 05:00 O2 Flow Rate 2 02/20/25 05:00 02/19/25 02/20/25 02/20/25 22:59 06:59 14:59 Intake Total 1550 / 2223.333 100 / 2323.333 1296.667 / 1296.667 Output Total 752 / 1252 800 / 2052 Balance 798 / 971.333 -700 / 265.961 1852.667 / 1296.667 Weight last 48 hrs Weight 80.966 kg Weight 81.7 kg Weight 80.377 kg Weight 78.97 kg Weight 74.389 kg Physical Exam 2 Narrative: Elderly lady in bed no apparent distress. Vital signs noted and stable. Using nasal cannula oxygen 2 L HEENT normocephalic atraumatic. Neck is supple no JVP Lungs are clear to auscultation Heart regular rate and rhythm. Abdomen is soft positive bowel sounds. Extremities 1+ chronic edema. Right femoral vein dialysis catheter Positive pulses. 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 Urinary Catheter Management: Higgins Latex Free: Cath Placed During This Visit: yes Reason for Continuing Indwelling Catheter: Accurate Measurement of Urinary Output in Critically Ill Patients Urinary Catheter Date of Insertion: 02/19/25 Urinary Catheter Time of Insertion: 10:14 Data 02/20/25 04:39 02/20/25 04:39 Micro: Microbiology 02/18/25 16:10 Group A Streptococcus Rapid Screen - Preliminary Throat A&P Assessment and plan (1) Acute renal failure: See below acute on chronic renal failure. Plan 79-year-old lady diabetic hypertensive, spinal stenosis, chronic back pain. 1. CKD stage to be determined try to get old lab work. PTH is 7 with a normal vitamin D this may speak against CKD 2. Hypoglycemia likely from her diabetic medications, glucose still remains on low side will monitor 3. Acute on chronic renal failure likely from medications. Patient required emergent dialysis yesterday for metformin associated lactic acidosis. Lactate is since improved to 4. The patient is now urinating however her potassium was somewhat elevated at 5.9. Will stop her bicarbonate drip. We will replace magnesium. We will monitor chemistries and determine need for further dialysis. Please note that yesterday her bicarbonate was 12 it is now 21 anion gap is down to 14 from 34 yesterday. Patient's acidosis has improved from fluids dialysis and question of renal recovery. - Please check renal ultrasound -Urinalysis 2+ protein had trace ketones. 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 Hypercalcemia is improving. Calcium has improved from 11.1-8.7 5. Anemia iron saturation 9.4% with a ferritin of 46. Her hemoglobin is 9.4. Unless she is bacteremic we will start IV iron. PDMP PDMP Reviewed: Not Reviewed Attestations 2 Medical Necessity Statement*: RADHA Time Spent in Patient Care: 16 - 35 minutes (>than 50% of time sp ent in counselling and/or direct pt care on unit) . Coding Level of Care Code Acute Code for [facility] Fwd Diagnoses Acute renal failure, unspecified acute renal failure type N17.9 Acute renal failure type: unspecified
--- NOTE | 2025-02-20 09:39 | USR_ITS ---
PROCEDURE INFORMATION: Exam: US Retroperitoneal, Complete, Kidneys and Bladder Exam date and time: 02/20/2025 11:29 AM Age: 79 years old Clinical indication: Condition or disease; Other: Nikolas TECHNIQUE: Imaging protocol: Real-time ultrasound of the retroperitoneum with image documentation. Complete exam focused on the bilateral kidneys and urinary bladder. COMPARISON: No relevant prior studies available. FINDINGS: Right kidney: The right kidney measures 10.9 cm in length and demonstrates an echogenic parenchyma of normal thickness. No mass or hydronephrosis. Left kidney: The left kidney measures 9.8 cm in length and demonstrates an echogenic parenchyma of normal thickness. No mass or hydronephrosis noted. Urinary bladder: Unremarkable. US/US renal BI* [id number] IMPRESSION: Echogenic kidneys of normal size. No hydronephrosis
[2025-02-20] MEDS: magnesium sulfate premix 1 GM/100 ML PIGGYBACK IV ×2 (09:58→09:59)
[2025-02-20] MEDS: dextrose 10% 1,000 ML 75 ML IV (10:35)
[2025-02-20 11:46] LABS: Glucose Point of Care 260 mg/dL (70-110)
[2025-02-20 12:53] LABS: Alanine Aminotransferase 17 U/L (0-33); Albumin Level 3.3 g/dL (3.5-5.2); Alkaline Phosphatase 38 U/L (35-105); Anion Gap 19.8 (5-19); Aspartate Amino Transferase 27 U/L (0-32); Blood Urea Nitrogen 46 mg/dL (8-23); Calcium 8.6 mg/dL (8.5-10.5); Carbon Dioxide 22 mmol/L (22-29); Chloride 88 mmol/L (98-107); Creatinine Clr Calc Pharmacy 10.9438; Globulin 2.4 g/dL (1.3-4.6); Glucose 182 mg/dL (65-115); Osmolality Calculated 275 mOsm/kg (285-295); Potassium 5.8 mmol/L (3.5-5.1); Sodium 124 mmol/L (136-145); Total Bilirubin 0.3 mg/dL (0.15-1.2); Total Protein 5.7 g/dL (6.6-8.7)
[2025-02-20] MEDS: dextrose 5%-sod chloride 0.9% 1,000 ML 100 ML IV (14:02)
[2025-02-20] MEDS: iron sucrose 200 MG in sodium chloride 0.9% (100 ml) 100 ML 220 MG IV (14:40)
--- NOTE | 2025-02-20 15:14 | P.PN_ITS ---
Subjective 2 Subjective: seen today s/p dialysis yesterday plan for repeat labs this afternoon says she feels tired Vitals/I&O/Wt Last Vital Signs Temp 98 F 02/20/25 12:00 Pulse 100 02/20/25 14:00 Resp 25 H 02/20/25 12:00 BP 111/54 02/20/25 12:00 Pulse Ox 77 L 02/20/25 07:00 O2 Del Method Nasal Cannula 02/20/25 05:00 O2 Flow Rate 2 02/20/25 05:00 02/20/25 02/20/25 02/20/25 06:59 14:59 22:59 Intake Total 100 / 2323.333 1796.667 / 1796.667 Output Total 800 / 2052 950 / 950 Balance -700 / 271.333 846.667 / 846.667 Weight last 48 hrs Weight 80.966 kg Weight 81.7 kg Weight 80.377 kg Weight 78.97 kg Weight 74.389 kg Physical Exam 2 Narrative: General: Alert oriented x3, patient seen laying in bed HEENT: Normocephalic, atraumatic, EOMI, breathing room air Cardio: Regular rate rhythm, normal S1-S2, Respiratory: Clear to auscultation bilaterally no wheezes or rhonchi. GI: Abdomen soft, nontender, nondistended, bowel sounds + Behavior: Appropriate and cooperative Extremities: Trace edema bilateral lower extremities. Urinary Catheter Management: Higgins Latex Free: Cath Placed During This Visit: yes Reason for Continuing Indwelling Catheter: Accurate Measurement of Urinary Output in Critically Ill Patients Urinary Catheter Date of Insertion: 02/19/25 Urinary Catheter Time of Insertion: 10:14 Data 02/20/25 04:39 02/20/25 12:26 Micro: Microbiology 02/18/25 16:10 Group A Streptococcus Rapid Screen - Final Throat A&P Assessment and plan (1) Acute kidney injury: Admit to stepdown unit because of severe hypoglycemia along with multiple electrolyte imbalances - Acute renal failure be optimized - Keep medication renal friendly - Hold home losartan, metformin, supplemental potassium, glipizide, Lasix, high- dose gabapentin, narcotics - Gentle hydration follow urine 1 L of bicarb drip of 3 Amps in d5w x 1liter [bicarb drip had completed] patient is on D5nss at 100/h - Follow-up with lab studies and optimize accordingly (2) Dehydration: Continue gentle hydration and monitor electrolytes and optimize accordingly (3) Hyperkalemia: - Calcium gluconate an amp given, no EKG changes -Follow electrolytes (4) Hypoglycemia: Patient is with renal failure and at the same time has multiple oral hypoglycemic agent leading to hypoglycemia and that is severe the lowest was earlier this morning with a blood sugar of 12 serium glucose Patient had been on hypoglycemic protocol. Change of IV fluids. Patient doing okay (5) High anion gap metabolic acidosis: Received 1 L of 3 amp of bicarb in a D5 and water patient down was followed up with normal saline gentle hydration at 100/h. Follow lab studies (6) Weakness: Worsening weakness due to acute renal failure with a creatinine of 5.5 from a patient who is with normal renal function and with high anion gap metabolic acidosis patient had gotten too weak and that was the reason for coming to the ED for further evaluation. - Continue to monitor lab studies should be out. For interval changes (7) Acute renal failure: (8) Metabolic acidosis: (9) Lactic acidosis: (10) Anemia: (11) Oliguria: Plan GI and DVT prophylaxis in place 02/19/2025 #High anion gap metabolic acidosis #Acute renal failure #Hyperkalemia secondary to renal failure #Lactic acidosis #Oliguric on admission #Severe hyperglycemia #Leukocytosis #Anemia #Possible history of CKD ? I will obtain stat labs for the patient: CBC, CMP, museum, phosphorus, VBG. ? Placed on bicarb drip with 150 mill equivalent 100 cc/h stat ? Nephrology stat consult ? Consult general surgery for dialysis catheter ? We will need to dialyze this patient secondary to acidosis, hyperkalemia, worsening renal function ? Check iron studies iron TIBC ferritin. Hemoglobin 10.1. Continue to monitor, check FOBT ? Transfer patient to ICU ? Place Higgins catheter for accurate urine output ? We do not have previous labs on the patient. I will try to track down patient's primary care doctor and obtain copies of previous labs. ? Recheck CBC CMP postdialysis. ?Hold nephrotoxic agents. Stop sitagliptin, metformin, glipizide ? Hold amlodipine, clonidine. Full code DVT prophylaxis: Heparin SQ twice daily 02/20/2025 repeat labs pending at [facility] to d5 dialysis not planned today she feels tired at this time will discuss care with nephrology K slightly elevated will recheck labs at 4 pm lactate 4.0 PDMP PDMP Reviewed: Not Reviewed Attestations 2 Medical Necessity Statement*: Acute renal failure, initiation of dialysis. Diagnoses Acute kidney injury N17.9 Dehydration E86.0 Hyperkalemia E87.5 Hypoglycemia E16.2 High anion gap metabolic acidosis E87.29 Weakness R53.1 Acute renal failure, unspecified acute renal failure type N17.9 Acute renal failure type: unspecified Metabolic acidosis E87.20 Lactic acidosis E87.20 Anemia D64.9 Oliguria R34
[2025-02-20 15:45] LABS: Potassium, Radom Urine 29 mmol/L; Urine Creatinine 19 mg/dL (28-217); Urine Random Chloride 74 mmol/L; Urine Random Sodium 71 mmol/L
--- NOTE | 2025-02-20 15:46 | NUR.SHIFT ---
up this am with physical therapy right groin sheath in place no bleeding at site at this time Dr reynaga here aware site restarted heparin sq dewey with urine output increased noted monitor afib no resp distress noted today very poor appitite but denies nausea
[2025-02-20 15:49] LABS: Base Excess VBG 0.5 mmol/L (-3.0-3.0); Blood Gas Operator Identificat BROMA; Blood Gas Sample Site Not specified; Blood Gas Sample Type Venous; HCO3 VBG 25.8 mmol/L (24-28); PCO2 VBG 43.3 mmHg (41-51); PO2 VBG 53.9 mmHg (25-40); Venous Blood Gas Hematocrit 31.3 % (37-47); pH VBG 7.38 (7.32-7.42)
[2025-02-20 16:13] LABS: Alanine Aminotransferase 18 U/L (0-33); Albumin Level 3.6 g/dL (3.5-5.2); Alkaline Phosphatase 44 U/L (35-105); Aspartate Amino Transferase 30 U/L (0-32); Blood Urea Nitrogen 44 mg/dL (8-23); Calcium 8.7 mg/dL (8.5-10.5); Carbon Dioxide 23 mmol/L (22-29); Chloride 87 mmol/L (98-107); Creatinine Clr Calc Pharmacy 11.2107; Globulin 2.6 g/dL (1.3-4.6); Glucose 217 mg/dL (65-115); Osmolality Calculated 276 mOsm/kg (285-295); Sodium 124 mmol/L (136-145); Total Bilirubin 0.3 mg/dL (0.15-1.2); Total Protein 6.2 g/dL (6.6-8.7)
[2025-02-20 16:18] LABS: Anion Gap 20.1 (5-19); Potassium 6.1 mmol/L (3.5-5.1)
[2025-02-20 17:16] LABS: Glucose Point of Care 265 mg/dL (70-110)
[2025-02-20] MEDS: calcium gluconate 0.1 gm/mL 10% SDV 10mL 1 GM IVP (17:31)
[2025-02-20] MEDS: sodium chloride 0.9% 500 ML IV (17:31)
[2025-02-20] MEDS: sodium polystyrene sulfonate 15 gm/60 mL Btl PO ×2 (17:36→17:37)
[2025-02-20] MEDS: insulin lispro 100 unit/1 mL SUBCUT ×2 (17:36→21:23)
[2025-02-20] MEDS: simethicone 80 mg Chew PO (17:37)
[2025-02-20 20:04] LABS: Alanine Aminotransferase 18 U/L (0-33); Albumin Level 3.5 g/dL (3.5-5.2); Alkaline Phosphatase 42 U/L (35-105); Anion Gap 20.3 (5-19); Aspartate Amino Transferase 27 U/L (0-32); Blood Urea Nitrogen 48 mg/dL (8-23); Calcium 8.7 mg/dL (8.5-10.5); Carbon Dioxide 22 mmol/L (22-29); Chloride 88 mmol/L (98-107); Creatinine Clr Calc Pharmacy 10.6893; Globulin 2.5 g/dL (1.3-4.6); Glucose 184 mg/dL (65-115); Osmolality Calculated 277 mOsm/kg (285-295); Potassium 5.3 mmol/L (3.5-5.1); Sodium 125 mmol/L (136-145); Total Bilirubin 0.4 mg/dL (0.15-1.2)
[2025-02-20 21:18] LABS: Glucose Point of Care 241 mg/dL (70-110)
[2025-02-20] MEDS: pantoprazole 40 mg SDV IVP (21:24)
[2025-02-20] MEDS: sennosides 8.6 mg Tablet 17.2 MG PO (21:24)
[2025-02-21] VITALS (25 sets, daily range): BP systolic 119–172; BP diastolic 80–109; PULSE 76–111; RESP 15–31; O2SAT 80–100
[2025-02-21] MEDS: dextrose 5%-sod chloride 0.9% 1,000 ML 100 ML IV ×2 (00:58→10:13)
[2025-02-21 01:46] LABS: Alanine Aminotransferase 16 U/L (0-33); Albumin Level 3.4 g/dL (3.5-5.2); Alkaline Phosphatase 41 U/L (35-105); Aspartate Amino Transferase 25 U/L (0-32); Blood Urea Nitrogen 49 mg/dL (8-23); Calcium 8.6 mg/dL (8.5-10.5); Carbon Dioxide 25 mmol/L (22-29); Chloride 93 mmol/L (98-107); Creatinine Clr Calc Pharmacy 10.6893; Globulin 2.4 g/dL (1.3-4.6); Glucose 119 mg/dL (65-115); Osmolality Calculated 288 mOsm/kg (285-295); Sodium 132 mmol/L (136-145); Total Bilirubin 0.3 mg/dL (0.15-1.2); Total Protein 5.8 g/dL (6.6-8.7)
[2025-02-21 05:34] LABS: Basophils % 0.3 %; Eosinophils % 0.3 %; Hematocrit 28.5 % (36-47); Lymphocytes # 1.4 10^3/uL (0.8-4.8); Mean Corpuscular HGB Conc 31.2 g/dL (30-55); Mean Corpuscular Hemoglobin 28.8 pg (27-33); Mean Corpuscular Volume 92.2 fl (85-98); Mean Platelet Volume 12.2 fL (7.4-10.4); Monocytes # 1.7 10^3/uL (0.2-0.9); Monocytes % 14.3 %; Neutrophils # 8.52 10^3/uL (1.8-7.7); Neutrophils % 72.7 %; Nucleated Red Blood Cells % 0 %; Platelet Count 204 10^3/cmm (157-399); Red Blood Count 3.09 10^6/uL (3.85-5.65); Red Cell Distribution Width 13.8 % (12.1-15.1); White Blood Count 11.74 10^3/uL (3.29-11.43)
[2025-02-21 05:47] LABS: Alanine Aminotransferase 16 U/L (0-33); Albumin Level 3.1 g/dL (3.5-5.2); Alkaline Phosphatase 47 U/L (35-105); Anion Gap 19.1 (5-19); Aspartate Amino Transferase 24 U/L (0-32); Blood Urea Nitrogen 45 mg/dL (8-23); Calcium 8.5 mg/dL (8.5-10.5); Carbon Dioxide 25 mmol/L (22-29); Chloride 93 mmol/L (98-107); Creatinine Clr Calc Pharmacy 10.9438; Globulin 2.6 g/dL (1.3-4.6); Glucose 113 mg/dL (65-115); Magnesium 1.7 mg/dL (1.7-2.3); Osmolality Calculated 286 mOsm/kg (285-295); Phosphorus 1.5 mg/dL (2.5-4.5); Potassium 5.1 mmol/L (3.5-5.1); Sodium 132 mmol/L (136-145); Total Bilirubin 0.4 mg/dL (0.15-1.2); Total Protein 5.7 g/dL (6.6-8.7)
[2025-02-21] MEDS: docusate sodium 100 mg Capsule PO (08:27)
[2025-02-21] MEDS: heparin 5,000 unit/mL INJ 1 mL 5000 UNIT SUBCUT ×2 (08:27→21:15)
[2025-02-21 08:33] LABS: Glucose Point of Care 148 mg/dL (70-110)
--- NOTE | 2025-02-21 10:35 | P.PN_ITS ---
Subjective 2 Subjective: The patient is feeling better. The patient is urinating. The patient is eating and drinking. Denies nausea vomiting shortness of breath. Does require oxygen. Medications: Reviewed: Yes Medication Review Details: Current Medications Hydrocodone Bitart/Acetaminophen (Hydrocodone-Acetaminophen 5-325 Mg Tablet) 1 tab PO Q8H PRN PRN Reason: MODERATE PAIN Last Admin: 02/19/25 14:58 Dose: 1 tab Docusate Sodium (Docusate Sodium 100 Mg Capsule) 100 mg PO BID [facility] Last Admin: 02/21/25 08:27 Dose: 100 mg Glucagon (Glucagon 1 Mg/Ml Kit 1 Ml) 1 mg IM ONCE PRN; Protocol PRN Reason: Adult Acute Hypoglycemia Nursing Prot. Heparin Sodium (Porcine) (Heparin 5,000 Unit/Ml Inj 1 Ml) 5,000 unit SUBCUT Q12H [facility] Last Admin: 02/21/25 08:27 Dose: 5,000 unit Dextrose (D10w) 250 mls @ 1,000 mls/hr IV PRN PRN PRN Reason: HYPOGLYCEMIA Last Infusion: 02/18/25 18:42 Dose: Infused Dextrose (D5w) 500 mls @ 0 mls/hr IV ONCE PRN; Protocol PRN Reason: Adult Acute Hypoglycemia Prot Dextrose (D10w) 125 mls @ 750 mls/hr IV PRN PRN; Protocol PRN Reason: Adult Acute Hypoglycemia Nursing Protocol Last Infusion: 02/19/25 06:40 Dose: Infused Dextrose (D10w) 250 mls @ 1,000 mls/hr IV PRN PRN; Protocol PRN Reason: Adult Acute Hypoglycemia Nursing Protocol Last Infusion: 02/18/25 23:51 Dose: Infused Dextrose/Sodium Chloride (Dextrose 5%-Sod Chloride 0.9%) 1,000 mls @ 100 mls/hr IV .Q10H [facility] Last Admin: 02/21/25 10:13 Dose: 100 mls/hr Insulin Human Lispro (Insulin Lispro 100 Unit/1 Ml) 0 unit SUBCUT WM&BEDTIME [facility]; Protocol Last Admin: 02/21/25 08:01 Dose: Not Given Ondansetron HCl (Ondansetron 2 Mg/Ml Sdv 2 Ml) 4 mg IVP Q8H PRN PRN Reason: vomiting, or N/V if npo Last Admin: 02/19/25 06:36 Dose: 4 mg Pantoprazole Sodium (Pantoprazole 40 Mg Sdv) 40 mg IVP Q24H [facility] Last Admin: 02/20/25 21:24 Dose: 40 mg Senna (Sennosides 8.6 Mg Tablet) 17.2 mg PO BEDTIME [facility] Last Admin: 02/20/25 21:24 Dose: 17.2 mg Simethicone (Simethicone 80 Mg Chew) 80 mg PO ONCE PRN PRN Reason: FLATULENCE Last Admin: 02/20/25 17:37 Dose: 80 mg Vitals/I&O/Wt Last Vital Signs Temp 98.6 F 02/20/25 22:00 Pulse 109 H 02/21/25 08:00 Resp 24 H 02/21/25 08:00 BP 164/101 02/21/25 08:00 Pulse Ox 90 02/21/25 08:00 O2 Del Method Room Air 02/21/25 04:00 O2 Flow Rate 1 02/21/25 03:00 02/20/25 02/21/25 02/21/25 22:59 06:59 14:59 Intake Total 2218.75 / 4015.417 1000 / 5015.417 1225 / 1225 Output Total 1750 / 2700 1200 / 3900 Balance 468.75 / 1315.417 -200 / 1804.307 1981 / 1225 Weight last 48 hrs Weight 80.966 kg Weight 81.7 kg Physical Exam 2 Narrative: Elderly lady in bed no apparent distress. Vital signs noted and stable. Using nasal cannula oxygen 2 L HEENT normocephalic atraumatic. Neck is supple no JVP Lungs are clear to auscultation Heart regular rate and rhythm. Abdomen is soft positive bowel sounds. Extremities 1+ chronic edema. Right femoral vein dialysis catheter Positive pulses. 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 Urinary Catheter Management: Higgins Latex Free: Cath Placed During This Visit: yes Reason for Continuing Indwelling Catheter: Accurate Measurement of Urinary Output in Critically Ill Patients Urinary Catheter Date of Insertion: 02/19/25 Urinary Catheter Time of Insertion: 10:14 Data 02/21/25 04:17 02/21/25 04:17 Micro: Microbiology 02/18/25 16:10 Group A Streptococcus Rapid Screen - Final Throat A&P Assessment and plan (1) Acute renal failure: See below acute on chronic renal failure. Plan 79-year-old lady diabetic hypertensive, spinal stenosis, chronic back pain. 1. CKD stage to be determined try to get old lab work. PTH is 7 with a normal vitamin D this may speak against CKD 2. Hypoglycemia likely from her diabetic medications, glucose still remains on low side will monitor 3. Acute on chronic renal failure likely from medications. Patient required emergent dialysis yesterday for metformin associated lactic acidosis. Lactate has since improved to 4. The patient is now urinating Yesterday her blood gas improved to 7.38 with PCO2 43 bicarbonate of 25.8. - renal ultrasound revealed 10.9 cm right kidney with echogenic parenchyma. Left kidney 9.8 cm also oncogenic consistent with chronic kidney disease -Urinalysis 2+ protein had trace ketones. 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 If patient is stable tomorrow then remove dialysis catheter. Patient likely has CKD stage IV and will likely need dialysis in the future however has no urgent need at this time. 4. Hypercalcemia- Calcium has improved from 11.1-8.5 5. Anemia iron saturation 9.4% with a ferritin of 46. Her hemoglobin is 8.9. we will start IV iron and epo. PDMP PDMP Reviewed: Not Reviewed Attestations 2 Medical Necessity Statement*: Acute on chronic renal failure. Renal function is improving. Lactic acidosis has improved. Would monitor the patient on food and a normal diet without IV fluids Time Spent in Patient Care: Greater than 35 minutes (>than 50% of time spent in counselling and/or direct pt care on unit) . Coding Level of Care Code Acute Code for [facility] Fwd Diagnoses Acute renal failure, unspecified acute renal failure type N17.9 Acute renal failure type: unspecified
[2025-02-21 10:42] LABS: Glucose Point of Care 299 mg/dL (70-110)
[2025-02-21] MEDS: epoetin alfa-epbx 10,000 unit/ml SDV (ESRD) 10000 UNIT SUBCUT (11:17)
[2025-02-21] MEDS: ferric gluconate 125 MG in sodium chloride 0.9% (100 ml) 100 ML 110 MG IV (11:18)
[2025-02-21] MEDS: insulin lispro 100 unit/1 mL SUBCUT ×3 (11:19→21:15)
[2025-02-21] MEDS: simethicone 80 mg Chew PO (11:43)
--- NOTE | 2025-02-21 13:26 | P.PN_ITS ---
Subjective 2 Subjective: seen today hb 8.9 labs somewhat improving Vitals/I&O/Wt Last Vital Signs Temp 98.6 F 02/20/25 22:00 Pulse 107 H 02/21/25 12:00 Resp 15 02/21/25 12:00 BP 144/95 02/21/25 12:00 Pulse Ox 94 02/21/25 12:00 O2 Del Method Room Air 02/21/25 04:00 O2 Flow Rate 1 02/21/25 03:00 02/20/25 02/21/25 02/21/25 22:59 06:59 14:59 Intake Total 2218.75 / 4015.417 1000 / 5015.417 1585 / 1585 Output Total 1750 / 2700 1200 / 3900 Balance 468.75 / 1315.417 -200 / 7468.444 2435 / 1585 Weight last 48 hrs Weight 80.966 kg Weight 81.7 kg Physical Exam 2 Narrative: General: Alert oriented x3, patient seen laying in bed HEENT: Normocephalic, atraumatic, EOMI, breathing room air Cardio: Regular rate rhythm, normal S1-S2, Respiratory: Clear to auscultation bilaterally no wheezes or rhonchi. GI: Abdomen soft, nontender, nondistended, bowel sounds + Behavior: Appropriate and cooperative Extremities: Trace edema bilateral lower extremities. Urinary Catheter Management: Higgins Latex Free: Cath Placed During This Visit: yes Reason for Continuing Indwelling Catheter: Accurate Measurement of Urinary Output in Critically Ill Patients Urinary Catheter Date of Insertion: 02/19/25 Urinary Catheter Time of Insertion: 10:14 Data 02/21/25 04:17 02/21/25 04:17 Micro: Microbiology 02/18/25 16:10 Group A Streptococcus Rapid Screen - Final Throat A&P Assessment and plan (1) Acute kidney injury: Admit to stepdown unit because of severe hypoglycemia along with multiple electrolyte imbalances - Acute renal failure be optimized - Keep medication renal friendly - Hold home losartan, metformin, supplemental potassium, glipizide, Lasix, high- dose gabapentin, narcotics - Gentle hydration follow urine 1 L of bicarb drip of 3 Amps in d5w x 1liter [bicarb drip had completed] patient is on D5nss at 100/h - Follow-up with lab studies and optimize accordingly (2) Dehydration: Continue gentle hydration and monitor electrolytes and optimize accordingly (3) Hyperkalemia: - Calcium gluconate an amp given, no EKG changes -Follow electrolytes (4) Hypoglycemia: Patient is with renal failure and at the same time has multiple oral hypoglycemic agent leading to hypoglycemia and that is severe the lowest was earlier this morning with a blood sugar of 12 serium glucose Patient had been on hypoglycemic protocol. Change of IV fluids. Patient doing okay (5) High anion gap metabolic acidosis: Received 1 L of 3 amp of bicarb in a D5 and water patient down was followed up with normal saline gentle hydration at 100/h. Follow lab studies (6) Weakness: Worsening weakness due to acute renal failure with a creatinine of 5.5 from a patient who is with normal renal function and with high anion gap metabolic acidosis patient had gotten too weak and that was the reason for coming to the ED for further evaluation. - Continue to monitor lab studies should be out. For interval changes (7) Acute renal failure: (8) Metabolic acidosis: (9) Lactic acidosis: (10) Anemia: (11) Oliguria: Plan GI and DVT prophylaxis in place 02/19/2025 #High anion gap metabolic acidosis #Acute renal failure #Hyperkalemia secondary to renal failure #Lactic acidosis #Oliguric on admission #Severe hyperglycemia #Leukocytosis #Anemia #Possible history of CKD ? I will obtain stat labs for the patient: CBC, CMP, museum, phosphorus, VBG. ? Placed on bicarb drip with 150 mill equivalent 100 cc/h stat ? Nephrology stat consult ? Consult general surgery for dialysis catheter ? We will need to dialyze this patient secondary to acidosis, hyperkalemia, worsening renal function ? Check iron studies iron TIBC ferritin. Hemoglobin 10.1. Continue to monitor, check FOBT ? Transfer patient to ICU ? Place Higgins catheter for accurate urine output ? We do not have previous labs on the patient. I will try to track down patient's primary care doctor and obtain copies of previous labs. ? Recheck CBC CMP postdialysis. ?Hold nephrotoxic agents. Stop sitagliptin, metformin, glipizide ? Hold amlodipine, clonidine. Full code DVT prophylaxis: Heparin SQ twice daily 02/20/2025 repeat labs pending at [facility] to d5 dialysis not planned today she feels tired at this time will discuss care with nephrology K slightly elevated will recheck labs at 4 pm lactate 4.0 02/21/2025 phosp 1.5 cr 4.2 bun 45 anion gap 19.1 sodium 132 K 5.1 albumin 3.1 renal US: Echogenic kidneys of normal size. No hydronephrosis 144/95 pulse 107 resp 15 room air no dialysis planned today pt subjectively feels better continue current care PDMP PDMP Reviewed: Not Reviewed Attestations 2 Medical Necessity Statement*: Acute renal failure, initiation of dialysis. Diagnoses Acute kidney injury N17.9 Dehydration E86.0 Hyperkalemia E87.5 Hypoglycemia E16.2 High anion gap metabolic acidosis E87.29 Weakness R53.1 Acute renal failure, unspecified acute renal failure type N17.9 Acute renal failure type: unspecified Metabolic acidosis E87.20 Lactic acidosis E87.20 Anemia D64.9 Oliguria R34
--- NOTE | 2025-02-21 16:33 | PC.NURSE ---
large loose stool today up to chair with max assist pt very weak , poor appitite at this time . monitor vs and accuchecks , blood sugars up at this time
[2025-02-21 16:52] LABS: Glucose Point of Care 177 mg/dL (70-110)
[2025-02-21 21:15] LABS: Glucose Point of Care 326 mg/dL (70-110)
[2025-02-21] MEDS: pantoprazole 40 mg SDV IVP (21:15)
[2025-02-22] VITALS (23 sets, daily range): BP systolic 130–173; BP diastolic 79–118; PULSE 75–118; RESP 16–29; TEMP 36.7–37.4; O2SAT 83–95
[2025-02-22 04:20] LABS: Basophils % 0.3 %; Eosinophils # 0.1 10^3/uL (0.0-0.8); Eosinophils % 0.7 %; Lymphocytes # 1.2 10^3/uL (0.8-4.8); Lymphocytes % 10.3 %; Mean Corpuscular HGB Conc 31.5 g/dL (30-55); Mean Corpuscular Hemoglobin 28.6 pg (27-33); Mean Corpuscular Volume 90.9 fl (85-98); Mean Platelet Volume 11.2 fL (7.4-10.4); Monocytes # 1.2 10^3/uL (0.2-0.9); Monocytes % 10.3 %; Neutrophils # 9.32 10^3/uL (1.8-7.7); Neutrophils % 77.8 %; Nucleated Red Blood Cells % 0 %; Platelet Count 192 10^3/cmm (157-399); Red Blood Count 2.97 10^6/uL (3.85-5.65); Red Cell Distribution Width 14.1 % (12.1-15.1); White Blood Count 11.96 10^3/uL (3.29-11.43)
[2025-02-22 04:41] LABS: Alanine Aminotransferase 14 U/L (0-33); Albumin Level 3.2 g/dL (3.5-5.2); Alkaline Phosphatase 45 U/L (35-105); Anion Gap 17.2 (5-19); Aspartate Amino Transferase 20 U/L (0-32); Blood Urea Nitrogen 50 mg/dL (8-23); Calcium 8.4 mg/dL (8.5-10.5); Carbon Dioxide 24 mmol/L (22-29); Chloride 98 mmol/L (98-107); Creatinine Clr Calc Pharmacy 10.4463; Globulin 2.4 g/dL (1.3-4.6); Glucose 88 mg/dL (65-115); Magnesium 1.6 mg/dL (1.7-2.3); Osmolality Calculated 293 mOsm/kg (285-295); Phosphorus 1.2 mg/dL (2.5-4.5); Potassium 4.2 mmol/L (3.5-5.1); Sodium 135 mmol/L (136-145); Total Bilirubin 0.5 mg/dL (0.15-1.2); Total Protein 5.6 g/dL (6.6-8.7)
[2025-02-22] MEDS: heparin 5,000 unit/mL INJ 1 mL 5000 UNIT SUBCUT ×2 (08:17→20:06)
[2025-02-22 08:27] LABS: Glucose Point of Care 96 mg/dL (70-110)
[2025-02-22] MEDS: HYDROcodone-acetaminophen 5-325 mg Tablet 1 TAB PO (08:28)
--- NOTE | 2025-02-22 09:54 | PM.PN ---
Subjective Subjective: Patient was seen and examined. Complains of chronic back pain no shortness of breath no nausea no vomiting no diarrhea. No hearing or visual problems. Medications: Reviewed: Yes Medication Review Details: Current Medications Hydrocodone Bitart/Acetaminophen (Hydrocodone-Acetaminophen 5-325 Mg Tablet) 1 tab PO Q8H PRN PRN Reason: MODERATE PAIN Last Admin: 02/22/25 08:28 Dose: 1 tab Docusate Sodium (Docusate Sodium 100 Mg Capsule) 100 mg PO BID [facility] Last Admin: 02/22/25 08:09 Dose: Not Given Glucagon (Glucagon 1 Mg/Ml Kit 1 Ml) 1 mg IM ONCE PRN; Protocol PRN Reason: Adult Acute Hypoglycemia Nursing Prot. Heparin Sodium (Porcine) (Heparin 5,000 Unit/Ml Inj 1 Ml) 5,000 unit SUBCUT Q12H [facility] Last Admin: 02/22/25 08:17 Dose: 5,000 unit Dextrose (D10w) 250 mls @ 1,000 mls/hr IV PRN PRN PRN Reason: HYPOGLYCEMIA Last Infusion: 02/18/25 18:42 Dose: Infused Dextrose (D5w) 500 mls @ 0 mls/hr IV ONCE PRN; Protocol PRN Reason: Adult Acute Hypoglycemia Prot Dextrose (D10w) 125 mls @ 750 mls/hr IV PRN PRN; Protocol PRN Reason: Adult Acute Hypoglycemia Nursing Protocol Last Infusion: 02/19/25 06:40 Dose: Infused Dextrose (D10w) 250 mls @ 1,000 mls/hr IV PRN PRN; Protocol PRN Reason: Adult Acute Hypoglycemia Nursing Protocol Last Infusion: 02/18/25 23:51 Dose: Infused Ferric Sodium Gluconate 125 mg (/ Sodium Chloride) 110 mls @ 110 mls/hr IV Q24H [facility] Stop: 02/28/25 11:59 Last Infusion: 02/21/25 13:10 Dose: Infused Potassium Phosphate 15 mmol/ (Sodium Chloride) 105 mls @ 47 mls/hr IV ONCE ONE Stop: 02/22/25 11:37 Insulin Human Lispro (Insulin Lispro 100 Unit/1 Ml) 0 unit SUBCUT WM&BEDTIME [facility]; Protocol Last Admin: 02/22/25 08:23 Dose: Not Given Ondansetron HCl (Ondansetron 2 Mg/Ml Sdv 2 Ml) 4 mg IVP Q8H PRN PRN Reason: vomiting, or N/V if npo Last Admin: 02/19/25 06:36 Dose: 4 mg Pantoprazole Sodium (Pantoprazole 40 Mg Sdv) 40 mg IVP Q24H [facility] Last Admin: 02/21/25 21:15 Dose: 40 mg Senna (Sennosides 8.6 Mg Tablet) 17.2 mg PO BEDTIME [facility] Last Admin: 02/21/25 21:21 Dose: Not Given Simethicone (Simethicone 80 Mg Chew) 80 mg PO ONCE PRN PRN Reason: FLATULENCE Last Admin: 02/20/25 17:37 Dose: 80 mg Simethicone (Simethicone 80 Mg Chew) 80 mg PO QID PRN PRN Reason: FLATULENCE Last Admin: 02/21/25 11:43 Dose: 80 mg Vitals/I&O/Wt Last Vital Signs Temp 98.6 F 02/20/25 22:00 Pulse 108 H 02/22/25 06:00 Resp 27 H 02/22/25 04:00 BP 149/79 02/22/25 04:00 Pulse Ox 91 02/22/25 04:00 O2 Del Method Room Air 02/21/25 04:00 O2 Flow Rate 1 02/21/25 03:00 02/21/25 02/22/25 02/22/25 22:59 06:59 14:59 Intake Total 510 / 2095 Output Total 1450 / 3450 900 / 4350 Balance -940 / -1355 -900 / -2255 Weight last 48 hrs Weight 80.739 kg Physical Exam Narrative: Elderly lady in bed no apparent distress. Vital signs noted and stable. Using nasal cannula oxygen 2 L HEENT normocephalic atraumatic. Neck is supple no JVP Lungs are clear to auscultation Heart regular rate and rhythm. Abdomen is soft positive bowel sounds. Extremities 1+ chronic edema. Right femoral vein dialysis catheter Positive pulses. 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 Urinary Catheter Management: Higgins Latex Free: Cath Placed During This Visit: yes Reason for Continuing Indwelling Catheter: Accurate Measurement of Urinary Output in Critically Ill Patients Urinary Catheter Date of Insertion: 02/19/25 Urinary Catheter Time of Insertion: 10:14 Data 02/22/25 03:57 02/22/25 03:57 A&P Assessment and plan (1) Acute renal failure: See below acute on chronic renal failure. Plan 79-year-old lady diabetic hypertensive, spinal stenosis, chronic back pain. 1. CKD stage to be determined try to get old lab work. PTH is 7 with a normal vitamin D this may speak against CKD 2. Hypoglycemia likely from her diabetic medications, glucose has improved to 88. Monitor off of IV fluids 3. Acute on chronic renal failure likely from medications. Patient required emergent dialysis yesterday for metformin associated lactic acidosis. Lactate has since improved to 4. The patient is now urinating Yesterday her blood gas improved to 7.38 with PCO2 43 Her bicarbonate remains normal at 24. - renal ultrasound revealed 10.9 cm right kidney with echogenic parenchyma. Left kidney 9.8 cm also oncogenic consistent with chronic kidney disease -Urinalysis 2+ protein had trace ketones. 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 Please remove dialysis catheter. Patient likely has CKD stage IV and will likely need dialysis in the future however has no urgent need at this time. Explained to patient she will likely need dialysis in the future and should get an AV fistula as an outpatient 4. Hypercalcemia- Calcium has improved from 11.1-8.4 5. Please give magnesium and phosphorus IV orders written. 6. Anemia iron saturation 9.4% with a ferritin of 46. Her hemoglobin is 8.5. Please continue with IV iron and epo. PDMP PDMP Reviewed: Not Reviewed Attestations Medical Necessity Statement*: Acute kidney injury on CKD. Please remove dialysis catheter. Patient likely now CKD stage IV. Renal dose medications. Time Spent in Patient Care: 16 - 35 minutes (>than 50% of time spent in counselling and/or direct pt care on unit). Coding Level of Care Code Acute Code for [facility] Fwd Diagnoses Acute renal failure, unspecified acute renal failure type N17.9 Acute renal failure type: unspecified
[2025-02-22] MEDS: magnesium sulfate premix 1 GM/100 ML PIGGYBACK IV (10:31)
[2025-02-22] MEDS: potassium phosphate (mMol PO4) 15 MMOL in sodium chloride 0.9% (100 ml) 100 ML 47 MMOL IV (10:37)
--- NOTE | 2025-02-22 12:31 | PC.OT ---
OT treatment attempted at 12:25, however, per nursing patient just got her femoral catheter taken out
[2025-02-22 12:37] LABS: Glucose Point of Care 260 mg/dL (70-110)
[2025-02-22] MEDS: insulin lispro 100 unit/1 mL SUBCUT (12:39)
[2025-02-22] MEDS: simethicone 80 mg Chew PO (12:40)
--- NOTE | 2025-02-22 13:05 | USCV_ITS ---
Idalia Burks Age: 79 Gender: F : 1945 Exam Date: 02/22/2025 14:21 Ordering Phys: Tawny Watkins MD Technologist: Exam Location: [facility] [place] Indication: sob cp BP: 136 / 95 HR: 87 Rhythm: Sinus Technical Quality: Adequate MEASUREMENTS (Male / Female) Normal Values 2D ECHO LV Diastolic Diameter PLAX 4.7 cm 4.2 - 5.9 / 3.9 - 5.3 cm IVS Diastolic Thickness 1.2 cm 0.6 - 1.0 / 0.6 - 0.9 cm IVS Systolic Thickness 1.7 cm LVPW Diastolic Thickness 1.3 cm 0.6 - 1.0 / 0.6 - 0.9 cm LVPW Systolic Thickness 1.5 cm LV Ejection Fraction 2D Teich 70.0 % LV Ejection Fraction MOD 4C 46.3 % LV Ejection Fraction MOD 2C 68.3 % LV Ejection Fraction 2C AL 68.7 % RA Systolic Volume 4C AL 74.1 ml RA Systolic Volume 4C MOD 70.6 ml LA Sys Volume AL 71.4 cm cubed LA Sys Volume Index AL 37.9 cm cubed/m squared M-MODE LA Ao Ratio MM 1.6 AV Cusp Separation MM 1.8 cm DOPPLER AV Peak Velocity 176.2 cm/s MV Peak Velocity 116.0 cm/s MV Area PHT 4.1 cm squared Mitral E to A Ratio 2.9 TR Peak Velocity 321.0 cm/s TR Peak Gradient 41.2 mmHg TV Peak E Velocity 130.0 cm/s PV Peak Velocity 85.0 cm/s FINDINGS Left Ventricle Left ventricle is normal in size. LV systolic function is borderline normal with EF of 50-55%. Mild hypokineis. Grade 3 diastolic dysfunction Right Ventricle Normal in size and function Right Atrium Dilated Left Atrium Dilated Mitral Valve Mild mitral annular calcification. Moderate mitral regurgitation Aortic Valve Aortic valve is thickened. Mild aortic stenosis. Mean gradient across aortic valve of 8 mmHg. Tricuspid Valve Mild tricuspid regurgitation. RVSP is 40-45 mmHg. This is consistent with mild pulmonary hypertension Pulmonic Valve Not well visualized Pericardium Normal Aorta Normal in size IVC Not well visualized CONCLUSIONS LV systolic function is borderline normal with EF of 50-55% Grade 3 diastolic dysfunction. Biatrial enlargement. Moderate mitral regurgitation. Mild aortic stenosis. Mild tricuspid regurgitation. Mild pulmonary hypertension. Trell Montes MD (Electronically Signed) Final Date: 22 February 2025 16:42 S
[2025-02-22] MEDS: ferric gluconate 125 MG in sodium chloride 0.9% (100 ml) 100 ML 110 MG IV (13:10)
--- NOTE | 2025-02-22 13:12 | P.PN_ITS ---
Subjective 2 Subjective: Denies any new complaints today except generalized weakness. She has urinated about 3500 cc. Electrolytes noted without signs of hyperkalemia Medications: Reviewed: Yes Medication Review Details: Current Medications Hydrocodone Bitart/Acetaminophen (Hydrocodone-Acetaminophen 5-325 Mg Tablet) 1 tab PO Q8H PRN PRN Reason: MODERATE PAIN Last Admin: 02/22/25 08:28 Dose: 1 tab Docusate Sodium (Docusate Sodium 100 Mg Capsule) 100 mg PO BID [facility] Last Admin: 02/22/25 08:09 Dose: Not Given Glucagon (Glucagon 1 Mg/Ml Kit 1 Ml) 1 mg IM ONCE PRN; Protocol PRN Reason: Adult Acute Hypoglycemia Nursing Prot. Heparin Sodium (Porcine) (Heparin 5,000 Unit/Ml Inj 1 Ml) 5,000 unit SUBCUT Q12H [facility] Last Admin: 02/22/25 08:17 Dose: 5,000 unit Dextrose (D10w) 250 mls @ 1,000 mls/hr IV PRN PRN PRN Reason: HYPOGLYCEMIA Last Infusion: 02/18/25 18:42 Dose: Infused Dextrose (D5w) 500 mls @ 0 mls/hr IV ONCE PRN; Protocol PRN Reason: Adult Acute Hypoglycemia Prot Dextrose (D10w) 125 mls @ 750 mls/hr IV PRN PRN; Protocol PRN Reason: Adult Acute Hypoglycemia Nursing Protocol Last Infusion: 02/19/25 06:40 Dose: Infused Dextrose (D10w) 250 mls @ 1,000 mls/hr IV PRN PRN; Protocol PRN Reason: Adult Acute Hypoglycemia Nursing Protocol Last Infusion: 02/18/25 23:51 Dose: Infused Ferric Sodium Gluconate 125 mg (/ Sodium Chloride) 110 mls @ 110 mls/hr IV Q24H [facility] Stop: 02/28/25 11:59 Last Infusion: 02/21/25 13:10 Dose: Infused Potassium Phosphate 15 mmol/ (Sodium Chloride) 105 mls @ 47 mls/hr IV ONCE ONE Stop: 02/22/25 11:37 Insulin Human Lispro (Insulin Lispro 100 Unit/1 Ml) 0 unit SUBCUT WM&BEDTIME MANUEL; Protocol Last Admin: 02/22/25 08:23 Dose: Not Given Ondansetron HCl (Ondansetron 2 Mg/Ml Sdv 2 Ml) 4 mg IVP Q8H PRN PRN Reason: vomiting, or N/V if npo Last Admin: 02/19/25 06:36 Dose: 4 mg Pantoprazole Sodium (Pantoprazole 40 Mg Sdv) 40 mg IVP Q24H [facility] Last Admin: 02/21/25 21:15 Dose: 40 mg Senna (Sennosides 8.6 Mg Tablet) 17.2 mg PO BEDTIME MANUEL Last Admin: 02/21/25 21:21 Dose: Not Given Simethicone (Simethicone 80 Mg Chew) 80 mg PO ONCE PRN PRN Reason: FLATULENCE Last Admin: 02/20/25 17:37 Dose: 80 mg Simethicone (Simethicone 80 Mg Chew) 80 mg PO QID PRN PRN Reason: FLATULENCE Last Admin: 02/21/25 11:43 Dose: 80 mg Vitals/I&O/Wt Last Vital Signs Temp 99.3 F 02/22/25 12:00 Pulse 98 02/22/25 12:00 Resp 26 H 02/22/25 12:00 BP 160/99 02/22/25 12:00 Pulse Ox 89 L 02/22/25 12:00 O2 Del Method Nasal Cannula 02/22/25 12:00 O2 Flow Rate 2 02/22/25 12:00 02/21/25 02/22/25 02/22/25 22:59 06:59 14:59 Intake Total 510 / 2095 360 / 360 Output Total 1450 / 3450 900 / 4350 425 / 425 Balance -940 / -1355 -900 / -2255 -65 / -65 Weight last 48 hrs Weight 80.739 kg Physical Exam 2 Narrative: General: No acute distress, AO x3 HEENT: PERRLA, pupils bilaterally equal and reactive, pallors not present Chest: Normal vesicular breath sounds, no added sounds, equal good air entry bilaterally CVS: S1-S2 regular, no murmurs, no tachycardia, no gallops, no rubs Abdomen: Soft, nontender, no organomegaly, bowel sounds present Neuro: No focal deficits, no facial deformity, AO x3, power 5/5 in all limbs Urinary Catheter Management: Higgins Latex Free: Cath Placed During This Visit: yes Reason for Continuing Indwelling Catheter: Accurate Measurement of Urinary Output in Critically Ill Patients Urinary Catheter Date of Insertion: 02/19/25 Urinary Catheter Time of Insertion: 10:14 Data 02/22/25 03:57 02/22/25 03:57 A&P Assessment and plan (1) Acute kidney injury: Admit to stepdown unit because of severe hypoglycemia along with multiple electrolyte imbalances - Acute renal failure be optimized - Keep medication renal friendly - Hold home losartan, metformin, supplemental potassium, glipizide, Lasix, high- dose gabapentin, narcotics - Gentle hydration follow urine 1 L of bicarb drip of 3 Amps in d5w x 1liter [bicarb drip had completed] patient is on D5nss at 100/h - Follow-up with lab studies and optimize accordingly (2) Dehydration: Continue gentle hydration and monitor electrolytes and optimize accordingly (3) Hyperkalemia: - Calcium gluconate an amp given, no EKG changes -Follow electrolytes (4) Hypoglycemia: Patient is with renal failure and at the same time has multiple oral hypoglycemic agent leading to hypoglycemia and that is severe the lowest was earlier this morning with a blood sugar of 12 serium glucose Patient had been on hypoglycemic protocol. Change of IV fluids. Patient doing okay (5) High anion gap metabolic acidosis: Received 1 L of 3 amp of bicarb in a D5 and water patient down was followed up with normal saline gentle hydration at 100/h. Follow lab studies (6) Weakness: Worsening weakness due to acute renal failure with a creatinine of 5.5 from a patient who is with normal renal function and with high anion gap metabolic acidosis patient had gotten too weak and that was the reason for coming to the ED for further evaluation. - Continue to monitor lab studies should be out. For interval changes (7) Acute renal failure: (8) Metabolic acidosis: (9) Lactic acidosis: (10) Anemia: (11) Oliguria: Plan GI and DVT prophylaxis in place 02/19/2025 #High anion gap metabolic acidosis #Acute renal failure #Hyperkalemia secondary to renal failure #Lactic acidosis #Oliguric on admission #Severe hyperglycemia #Leukocytosis #Anemia #Possible history of CKD ? I will obtain stat labs for the patient: CBC, CMP, museum, phosphorus, VBG. ? Placed on bicarb drip with 150 mill equivalent 100 cc/h stat ? Nephrology stat consult ? Consult general surgery for dialysis catheter ? We will need to dialyze this patient secondary to acidosis, hyperkalemia, worsening renal function ? Check iron studies iron TIBC ferritin. Hemoglobin 10.1. Continue to monitor, check FOBT ? Transfer patient to ICU ? Place Higgins catheter for accurate urine output ? We do not have previous labs on the patient. I will try to track down patient's primary care doctor and obtain copies of previous labs. ? Recheck CBC CMP postdialysis. ?Hold nephrotoxic agents. Stop sitagliptin, metformin, glipizide ? Hold amlodipine, clonidine. Full code DVT prophylaxis: Heparin SQ twice daily 02/20/2025 repeat labs pending at [facility] switch to d5 dialysis not planned today she feels tired at this time will discuss care with nephrology K slightly elevated will recheck labs at 4 pm lactate 4.0 02/21/2025 phosp 1.5 cr 4.2 bun 45 anion gap 19.1 sodium 132 K 5.1 albumin 3.1 renal US: Echogenic kidneys of normal size. No hydronephrosis 144/95 pulse 107 resp 15 room air no dialysis planned today pt subjectively feels better continue current care February 22, 2025 Chart reviewed extensively. Patient admitted to the hospital on 02/18/2025. Per patient her kidney function was last checked in December 2024 at which time she was told her GFR is at 41. About 3 to 4 days prior to presentation she started to complain of increased upper body weakness, thereafter followed by generalized weakness to the point where she was unable to carry on her ADLs. At the baseline patient ambulates small distances within the house to her parking garage. She does not drive. She does sometimes need to use a cane. She had been referred to [facility] nephrology by her primary care physician in December but is not scheduled for an appointment until June as of now. On day of admission after presenting with generalized weakness she was found to have RADHA on CKD, multiple electrolyte abnormalities. She underwent placement of temporary HD catheter and received 1 session of hemodialysis. Following dialysis she is currently making good urine output. Over the last 24 hours urine output has been over 4 L. Hyperkalemia has resolved. Metabolic acidosis has corrected. No obvious cause of this acute decompensation is readily evident at this time. Her renal ultrasound revealed a 10.9 cm kidney with echogenic parenchyma. Left kidney 9.8 cm consistent with chronic kidney disease. Urine analysis had 2+ protein and trace ketones. Hepatitis serologies were negative. Echocardiogram is ordered today, in reviewing stress test from December 2024, EF at that time was estimated to be at 82%. Note is made of subendocardial ischemia not excluded at the time. Will obtain echocardiogram for further assessment. Hospital course has been complicated by anemia, hemoglobin dropped to 8.5. Patient has a history of atrial fibrillation and her Xarelto is currently on hold given the anemia. This will need to be restarted after an FOBT has been obtained and active bleeding excluded. She is currently on IV iron. DVT prophylaxis with heparin 5000 subcutaneous every 12 hours Today she is noted to have RVR with heart rate ranging between 100 to 120/min. We will start her on metoprolol 25 mg p.o. twice daily Her chart notes a prior history of atenolol started as anaphylaxis, however per history this does not seem to be accurate. Patient states that she was only atenolol for almost 1 year and then started developing shortness of breath. It appears the atenolol was being used for panic attacks. Atenolol was discontinued and she was switched instead to lisinopril however her symptoms did not improve and it was thought she may have an allergic reaction to lisinopril as well. Currently she is on losartan, amlodipine and clonidine for her blood pressure management. In keeping with the above history this does not appear to be an IgE mediated reaction to atenolol therefore anaphylaxis is unlikely. Patient is amenable to a trial of metoprolol 25 mg p.o. twice daily. We will start this today and closely monitor her for any adverse events. If blood pressure allows we will resume her home dose of amlodipine next. Resume home doses of gabapentin 200 mg p.o. twice daily. discontinue insulin sliding scale given that patient has recently recovered from hypoglycemia and was on a D5 infusion until last night. Closely monitor blood sugar levels. Check HbA1c. Continue to hold OHA's. Remove temporary HD catheter as no further dialysis anticipated during this admission course. Patient will need to follow-up with nephrology sooner than June. Highly likely she will require dialysis in the long-term, needs to be established for fistula planning. Patient is significantly deconditioned related to her Ongoing illness, PT assessment reordered. OT requested. Currently saturating 89% on 2 L/min nasal cannula. Patient typically does not use any home oxygen. Check chest x-ray. Resume home dose of albuterol as needed. Remove Higgins catheter PDMP PDMP Reviewed: Not Reviewed Attestations 2 Medical Necessity Statement*: May transfer out of ICU to [facility] today, start metoprolol, resume home medications, continue IV iron, pending FOBT, therapy assessments Coding Level of Care Code Acute Code for Chg Fwd High MDM includes number and complexity of problems actively addressed during encounter, amount and/or complexity of data reviewed/ordered and described risk of complication, morbidity or mortality of management as documented Diagnoses Acute kidney injury N17.9 Dehydration E86.0 Hyperkalemia E87.5 Hypoglycemia E16.2 High anion gap metabolic acidosis E87.29 Weakness R53.1 Acute renal failure, unspecified acute renal failure type N17.9 Acute renal failure type: unspecified Metabolic acidosis E87.20 Lactic acidosis E87.20 Anemia D64.9 Oliguria R34
--- NOTE | 2025-02-22 13:13 | XR_ITS ---
WS: [id number] Exam: XR chest 1V portable [id number] Date/Time of Exam: 02/22/2025 1:22 PM Reason For Exam: assess for pneumonia Comparison 02/01/2025. Consolidating infiltrates in the mid and lower LEFT lung with prominent left pleural effusion. There is also some diffuse infiltrate throughout the RIGHT lung. Heart size top limits normal. Increased pulmonary vascularity that might indicate some superimposed cardiac decompensation. No pneumothorax. The mediastinum is normal in contour. Unremarkable bony structures. IMPRESSION1. Consolidating infiltrate and atelectasis in the mid and lower LEFT lung with LEFT basal pleural effusion. There is some diffuse interstitial infiltrate throughout the remaining lung garay. Additionally there appears to be some pulmonary vascular congestion that might represent some degree of superimposed CHF.
[2025-02-22] MEDS: metoprolol tartrate 25 mg Tablet PO ×2 (13:14→20:06)
--- NOTE | 2025-02-22 14:09 | PC.SOCIAL ---
IMM Updated Updated pt on IMM. No questions voiced. Provided pt a copy. Initialed, dated, & timed copy in chart.
[2025-02-22] MEDS: lactulose oral liq 20 gm/30 mL UDC 10 GM PO (16:11)
[2025-02-22] MEDS: docusate sodium 100 mg Capsule PO (18:08)
[2025-02-22] MEDS: gabapentin 100 mg Capsule 200 MG PO (18:08)
[2025-02-22] MEDS: ATORVASTATIN 10 MG TABLET 20 MG PO (18:08)
--- NOTE | 2025-02-22 18:25 | PC.NURSE ---
SHift Summary: Dialysis catheter removed. Urinary catheter removed. Up to a chair for about 4 hours today. Very weak, but reports her strength is improving. 1 person assist. Started on metoprolol. started home meds of gabapentin and duloxetine. Total urine output: 600mL.
[2025-02-22 19:57] LABS: Glucose Point of Care 207 mg/dL (70-110)
[2025-02-22] MEDS: pantoprazole 40 mg SDV IVP (20:05)
[2025-02-22] MEDS: duloxetine 20 mg Capsule PO (20:06)
[2025-02-22] MEDS: sennosides 8.6 mg Tablet 17.2 MG PO (20:06)
[2025-02-23] VITALS (26 sets, daily range): BP systolic 137–184; BP diastolic 80–132; PULSE 66–94; RESP 16–23; TEMP 36.6–36.9; O2SAT 87–100
[2025-02-23 03:47] LABS: Basophils % 0.3 %; Eosinophils # 0.1 10^3/uL (0.0-0.8); Eosinophils % 0.3 %; Hematocrit 28.3 % (36-47); Lymphocytes % 6.8 %; Mean Corpuscular HGB Conc 32.2 g/dL (30-55); Mean Corpuscular Volume 90.1 fl (85-98); Mean Platelet Volume 11.6 fL (7.4-10.4); Monocytes # 1.4 10^3/uL (0.2-0.9); Monocytes % 9.4 %; Neutrophils % 82.6 %; Nucleated Red Blood Cells % 0 %; Platelet Count 241 10^3/cmm (157-399); Red Blood Count 3.14 10^6/uL (3.85-5.65); Red Cell Distribution Width 14.2 % (12.1-15.1); White Blood Count 14.41 10^3/uL (3.29-11.43)
[2025-02-23 04:03] LABS: Estmated Average Glucose 114; Hemoglobin A1C 5.6 % (4.0-6.0)
[2025-02-23 04:11] LABS: Alanine Aminotransferase 19 U/L (0-33); Albumin Level 3.4 g/dL (3.5-5.2); Alkaline Phosphatase 60 U/L (35-105); Anion Gap 18.8 (5-19); Aspartate Amino Transferase 27 U/L (0-32); Blood Urea Nitrogen 53 mg/dL (8-23); Calcium 8.8 mg/dL (8.5-10.5); Carbon Dioxide 25 mmol/L (22-29); Chloride 93 mmol/L (98-107); Creatinine Clr Calc Pharmacy 12.0785; Globulin 3.1 g/dL (1.3-4.6); Glucose 217 mg/dL (65-115); Magnesium 1.7 mg/dL (1.7-2.3); Osmolality Calculated 295 mOsm/kg (285-295); Phosphorus 2.6 mg/dL (2.5-4.5); Potassium 4.8 mmol/L (3.5-5.1); Sodium 132 mmol/L (136-145); Total Bilirubin 0.8 mg/dL (0.15-1.2); Total Protein 6.5 g/dL (6.6-8.7)
[2025-02-23 08:04] LABS: Glucose Point of Care 212 mg/dL (70-110)
[2025-02-23] MEDS: docusate sodium 100 mg Capsule PO ×2 (08:11→17:34)
[2025-02-23] MEDS: cefTRIAXone 1,000 mg SDV 1000 MG IVP (08:12)
[2025-02-23] MEDS: heparin 5,000 unit/mL INJ 1 mL 5000 UNIT SUBCUT ×2 (08:12→20:27)
[2025-02-23] MEDS: lactulose oral liq 20 gm/30 mL UDC 10 GM PO (08:12)
[2025-02-23] MEDS: gabapentin 100 mg Capsule 200 MG PO ×2 (08:12→17:34)
[2025-02-23] MEDS: metoprolol tartrate 25 mg Tablet PO ×2 (08:14→20:27)
[2025-02-23] MEDS: amlodipine 10 mg Tablet PO (10:08)
--- NOTE | 2025-02-23 10:18 | P.PN_ITS ---
Subjective 2 Subjective: The patient was seen and examined. She complains of edema and shortness of breath. Still has a poor appetite and shakes. Denies nausea itching or cramps or diarrhea Medications: Reviewed: Yes Medication Review Details: Current Medications Hydrocodone Bitart/Acetaminophen (Hydrocodone-Acetaminophen 5-325 Mg Tablet) 1 tab PO Q8H PRN PRN Reason: MODERATE PAIN Last Admin: 02/22/25 08:28 Dose: 1 tab Albuterol Sulfate (Albuterol 2.5 Mg/0.5 Ml Neb) 2.5 mg INHALATION Q6H.RESP PRN PRN Reason: WHEEZING Amlodipine Besylate (Amlodipine 10 Mg Tablet) 10 mg PO DAILY MANUEL Last Admin: 02/23/25 10:08 Dose: 10 mg Atorvastatin Calcium (Atorvastatin 10 Mg Tablet) 20 mg PO QPM [facility]UEL Last Admin: 02/22/25 18:08 Dose: 20 mg Ceftriaxone Sodium (Ceftriaxone 1,000 Mg Sdv) 1,000 mg IVP Q24H MANUEL; Protocol Last Admin: 02/23/25 08:12 Dose: 1,000 mg Docusate Sodium (Docusate Sodium 100 Mg Capsule) 100 mg PO BID [facility] Last Admin: 02/23/25 08:11 Dose: 100 mg Duloxetine HCl (Duloxetine 20 Mg Capsule) 20 mg PO BEDTIME [facility]UEL Last Admin: 02/22/25 20:06 Dose: 20 mg Gabapentin (Gabapentin 100 Mg Capsule) 200 mg PO BID [facility] Last Admin: 02/23/25 08:12 Dose: 200 mg Glucagon (Glucagon 1 Mg/Ml Kit 1 Ml) 1 mg IM ONCE PRN; Protocol PRN Reason: Adult Acute Hypoglycemia Nursing Prot. Heparin Sodium (Porcine) (Heparin 5,000 Unit/Ml Inj 1 Ml) 5,000 unit SUBCUT Q12H [facility] Last Admin: 02/23/25 08:12 Dose: 5,000 unit Hydralazine HCl (Hydralazine 25 Mg Tablet) 25 mg PO TID [facility]UEL Dextrose (D10w) 250 mls @ 1,000 mls/hr IV PRN PRN PRN Reason: HYPOGLYCEMIA Last Infusion: 02/18/25 18:42 Dose: Infused Dextrose (D5w) 500 mls @ 0 mls/hr IV ONCE PRN; Protocol PRN Reason: Adult Acute Hypoglycemia Prot Dextrose (D10w) 125 mls @ 750 mls/hr IV PRN PRN; Protocol PRN Reason: Adult Acute Hypoglycemia Nursing Protocol Last Infusion: 02/19/25 06:40 Dose: Infused Dextrose (D10w) 250 mls @ 1,000 mls/hr IV PRN PRN; Protocol PRN Reason: Adult Acute Hypoglycemia Nursing Protocol Last Infusion: 02/18/25 23:51 Dose: Infused Ferric Sodium Gluconate 125 mg (/ Sodium Chloride) 110 mls @ 110 mls/hr IV Q24H [facility]UEL Stop: 02/28/25 11:59 Last Infusion: 02/22/25 18:16 Dose: Infused Lactulose (Lactulose Oral Liq 20 Gm/30 Ml Udc) 10 gm PO DAILY [facility]UEL Last Admin: 02/23/25 08:12 Dose: 10 gm Metoprolol Tartrate (Metoprolol Tartrate 25 Mg Tablet) 25 mg PO BID@0900,2100 [facility] Last Admin: 02/23/25 08:14 Dose: 25 mg Ondansetron HCl (Ondansetron 2 Mg/Ml Sdv 2 Ml) 4 mg IVP Q8H PRN PRN Reason: vomiting, or N/V if npo Last Admin: 02/19/25 06:36 Dose: 4 mg Pantoprazole Sodium (Pantoprazole 40 Mg Sdv) 40 mg IVP Q24H [facility] Last Admin: 02/22/25 20:05 Dose: 40 mg Senna (Sennosides 8.6 Mg Tablet) 17.2 mg PO BEDTIME MANUEL Last Admin: 02/22/25 20:06 Dose: 17.2 mg Simethicone (Simethicone 80 Mg Chew) 80 mg PO ONCE PRN PRN Reason: FLATULENCE Last Admin: 02/22/25 12:40 Dose: 80 mg Simethicone (Simethicone 80 Mg Chew) 80 mg PO QID PRN PRN Reason: FLATULENCE Last Admin: 02/21/25 11:43 Dose: 80 mg Vitals/I&O/Wt Last Vital Signs Temp 98.5 F 02/23/25 07:46 Pulse 79 02/23/25 08:18 Resp 16 02/23/25 08:18 BP 145/89 02/23/25 06:00 Pulse Ox 92 02/23/25 08:18 O2 Del Method Nasal Cannula 02/23/25 08:18 O2 Flow Rate 3 02/23/25 08:18 02/22/25 02/23/25 02/23/25 22:59 06:59 14:59 Intake Total 110 / 470 240 / 710 Output Total 425 / 850 400 / 1250 Balance -315 / -380 -160 / -540 Weight last 48 hrs Weight 79.832 kg Weight 80.739 kg Physical Exam 2 Narrative: Elderly lady in bed sitting up and using oxygen. Vital signs noted and stable. HEENT normocephalic atraumatic. Neck is supple no JVP Lungs -have right-sided dullness at areas and crackles Heart regular rate and rhythm. Abdomen is soft positive bowel sounds. Extremities 2+ chronic edema. Positive pulses. 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 Patient has a tremor Urinary Catheter Management: Higgins Latex Free: Cath Placed During This Visit: yes, but has since been removed by the nurse Reason for Continuing Indwelling Catheter: Decision to DC Catheter Urinary Catheter Date of Insertion: 02/19/25 Urinary Catheter Time of Insertion: 10:14 Date Urinary Catheter Removed: 02/22/25 Time Urinary Catheter Discontinued: 16:39 Data 02/23/25 03:21 02/23/25 03:21 Micro: Microbiology 02/22/25 18:00 Occult Blood (FIT) - Final Stool - Stool Aspirate A&P Assessment and plan (1) Acute renal failure: See below acute on chronic renal failure. Plan 79-year-old lady diabetic hypertensive, spinal stenosis, chronic back pain. 1. CKD stage to be determined try to get old lab work. PTH is 7 with a normal vitamin D this may speak against CKD. Patient will likely need need to initiate chronic dialysis in the near future. Hopefully now this hospitalization 2. Hypoglycemia likely from her diabetic medications, glucose has improved to 88. Monitor off of IV fluids 3. Acute on chronic renal failure likely from medications. Patient required emergent dialysis yesterday for metformin associated lactic acidosis. Lactate has since improved to 4. The patient is now urinating Yesterday her blood gas improved to 7.38 with PCO2 43 Her bicarbonate remains normal at 25. - renal ultrasound revealed 10.9 cm right kidney with echogenic parenchyma. Left kidney 9.8 cm also oncogenic consistent with chronic kidney disease -Urinalysis 2+ protein had trace ketones. 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 Hypercalcemia- Calcium has improved from 11.1-8.8 5. Please give magnesium 6. Anemia iron saturation 9.4% with a ferritin of 46. Her hemoglobin is 8.5. Please continue with IV iron and epo. 7. Pneumonia antibiotics as per primary care please dose for CKD stage IV-V. 8. Patient has effusions and leg edema we will restart furosemide. PDMP PDMP Reviewed: Not Reviewed Attestations 2 Medical Necessity Statement*: pna, ckd, edema Time Spent in Patient Care: 16 - 35 minutes (>than 50% of time sp ent in counselling and/or direct pt care on unit) . Coding Level of Care Code Acute Code for Chg Fwd Diagnoses Acute renal failure, unspecified acute renal failure type N17.9 Acute renal failure type: unspecified
[2025-02-23] MEDS: magnesium sulfate premix 1 GM/100 ML PIGGYBACK IV (11:52)
[2025-02-23] MEDS: FUROsemide 10 mg/mL SDV 4mL 40 MG IVP ×2 (11:52→22:20)
[2025-02-23 12:15] LABS: Glucose Point of Care 263 mg/dL (70-110)
--- NOTE | 2025-02-23 12:20 | PM.PN ---
Subjective Subjective: No new complaints today except continued generalized weakness. Leukocytosis up to 14,000. Oxygen requirement at 4 L/min today. Medications: Reviewed: Yes Medication Review Details: Current Medications Hydrocodone Bitart/Acetaminophen (Hydrocodone-Acetaminophen 5-325 Mg Tablet) 1 tab PO Q8H PRN PRN Reason: MODERATE PAIN Last Admin: 02/22/25 08:28 Dose: 1 tab Albuterol Sulfate (Albuterol 2.5 Mg/0.5 Ml Neb) 2.5 mg INHALATION Q6H.RESP PRN PRN Reason: WHEEZING Amlodipine Besylate (Amlodipine 10 Mg Tablet) 10 mg PO DAILY MANUEL Last Admin: 02/23/25 10:08 Dose: 10 mg Atorvastatin Calcium (Atorvastatin 10 Mg Tablet) 20 mg PO QPM MANUEL Last Admin: 02/22/25 18:08 Dose: 20 mg Ceftriaxone Sodium (Ceftriaxone 1,000 Mg Sdv) 1,000 mg IVP Q24H MANUEL; Protocol Last Admin: 02/23/25 08:12 Dose: 1,000 mg Docusate Sodium (Docusate Sodium 100 Mg Capsule) 100 mg PO BID MANUEL Last Admin: 02/23/25 08:11 Dose: 100 mg Duloxetine HCl (Duloxetine 20 Mg Capsule) 20 mg PO BEDTIME MANUEL Last Admin: 02/22/25 20:06 Dose: 20 mg Gabapentin (Gabapentin 100 Mg Capsule) 200 mg PO BID MANUEL Last Admin: 02/23/25 08:12 Dose: 200 mg Glucagon (Glucagon 1 Mg/Ml Kit 1 Ml) 1 mg IM ONCE PRN; Protocol PRN Reason: Adult Acute Hypoglycemia Nursing Prot. Heparin Sodium (Porcine) (Heparin 5,000 Unit/Ml Inj 1 Ml) 5,000 unit SUBCUT Q12H MANUEL Last Admin: 02/23/25 08:12 Dose: 5,000 unit Hydralazine HCl (Hydralazine 25 Mg Tablet) 25 mg PO TID [facility] Dextrose (D10w) 250 mls @ 1,000 mls/hr IV PRN PRN PRN Reason: HYPOGLYCEMIA Last Infusion: 02/18/25 18:42 Dose: Infused Dextrose (D5w) 500 mls @ 0 mls/hr IV ONCE PRN; Protocol PRN Reason: Adult Acute Hypoglycemia Prot Dextrose (D10w) 125 mls @ 750 mls/hr IV PRN PRN; Protocol PRN Reason: Adult Acute Hypoglycemia Nursing Protocol Last Infusion: 02/19/25 06:40 Dose: Infused Dextrose (D10w) 250 mls @ 1,000 mls/hr IV PRN PRN; Protocol PRN Reason: Adult Acute Hypoglycemia Nursing Protocol Last Infusion: 02/18/25 23:51 Dose: Infused Ferric Sodium Gluconate 125 mg (/ Sodium Chloride) 110 mls @ 110 mls/hr IV Q24H MANUEL Stop: 02/28/25 11:59 Last Infusion: 02/22/25 18:16 Dose: Infused Lactulose (Lactulose Oral Liq 20 Gm/30 Ml Udc) 10 gm PO DAILY MANUEL Last Admin: 02/23/25 08:12 Dose: 10 gm Metoprolol Tartrate (Metoprolol Tartrate 25 Mg Tablet) 25 mg PO BID@0900,2100 MANUEL Last Admin: 02/23/25 08:14 Dose: 25 mg Ondansetron HCl (Ondansetron 2 Mg/Ml Sdv 2 Ml) 4 mg IVP Q8H PRN PRN Reason: vomiting, or N/V if npo Last Admin: 02/19/25 06:36 Dose: 4 mg Pantoprazole Sodium (Pantoprazole 40 Mg Sdv) 40 mg IVP Q24H MANUEL Last Admin: 02/22/25 20:05 Dose: 40 mg Senna (Sennosides 8.6 Mg Tablet) 17.2 mg PO BEDTIME MANUEL Last Admin: 02/22/25 20:06 Dose: 17.2 mg Simethicone (Simethicone 80 Mg Chew) 80 mg PO ONCE PRN PRN Reason: FLATULENCE Last Admin: 02/22/25 12:40 Dose: 80 mg Simethicone (Simethicone 80 Mg Chew) 80 mg PO QID PRN PRN Reason: FLATULENCE Last Admin: 02/21/25 11:43 Dose: 80 mg Vitals/I&O/Wt Last Vital Signs Temp 98.5 F 02/23/25 07:46 Pulse 74 02/23/25 12:00 Resp 18 02/23/25 12:00 BP 152/104 02/23/25 12:00 Pulse Ox 96 02/23/25 12:00 O2 Del Method Nasal Cannula 02/23/25 08:18 O2 Flow Rate 3 02/23/25 08:18 02/22/25 02/23/2525 22:59 06:59 14:59 Intake Total 110 / 470 240 / 710 240 / 240 Output Total 425 / 850 400 / 1250 300 / 300 Balance -315 / -380 -160 / -540 -60 / -60 Weight last 48 hrs Weight 79.832 kg Weight 80.739 kg Physical Exam Narrative: General: No acute distress, AO x3 HEENT: PERRLA, pupils bilaterally equal and reactive, pallors not present Chest: Crackles to auscultation bilateral lower lobes, more prominent on the left side. CVS: S1-S2 regular, no murmurs, no tachycardia, no gallops, no rubs Abdomen: Soft, nontender, no organomegaly, bowel sounds present Neuro: No focal deficits, no facial deformity, AO x3, power 5/5 in all limbs Urinary Catheter Management: Higgins Latex Free: Cath Placed During This Visit: yes, but has since been removed by the nurse Reason for Continuing Indwelling Catheter: Decision to DC Catheter Urinary Catheter Date of Insertion: 02/19/25 Urinary Catheter Time of Insertion: 10:14 Date Urinary Catheter Removed: 02/22/25 Time Urinary Catheter Discontinued: 16:39 Data 02/23/25 03:21 02/23/25 03:21 Micro: Microbiology 02/22/25 18:00 Occult Blood (FIT) - Final Stool - Stool Aspirate A&P Assessment and plan (1) Acute kidney injury: Admit to stepdown unit because of severe hypoglycemia along with multiple electrolyte imbalances - Acute renal failure be optimized - Keep medication renal friendly - Hold home losartan, metformin, supplemental potassium, glipizide, Lasix, high-dose gabapentin, narcotics - Gentle hydration follow urine 1 L of bicarb drip of 3 Amps in d5w x 1liter [bicarb drip had completed] patient is on D5nss at 100/h - Follow-up with lab studies and optimize accordingly (2) Dehydration: Continue gentle hydration and monitor electrolytes and optimize accordingly (3) Hyperkalemia: - Calcium gluconate an amp given, no EKG changes -Follow electrolytes (4) Hypoglycemia: Patient is with renal failure and at the same time has multiple oral hypoglycemic agent leading to hypoglycemia and that is severe the lowest was earlier this morning with a blood sugar of 12 serium glucose Patient had been on hypoglycemic protocol. Change of IV fluids. Patient doing okay (5) High anion gap metabolic acidosis: Received 1 L of 3 amp of bicarb in a D5 and water patient down was followed up with normal saline gentle hydration at 100/h. Follow lab studies (6) Weakness: Worsening weakness due to acute renal failure with a creatinine of 5.5 from a patient who is with normal renal function and with high anion gap metabolic acidosis patient had gotten too weak and that was the reason for coming to the ED for further evaluation. - Continue to monitor lab studies should be out. For interval changes (7) Acute renal failure: (8) Metabolic acidosis: (9) Lactic acidosis: (10) Anemia: (11) Oliguria: Plan GI and DVT prophylaxis in place 02/19/2025 #High anion gap metabolic acidosis #Acute renal failure #Hyperkalemia secondary to renal failure #Lactic acidosis #Oliguric on admission #Severe hyperglycemia #Leukocytosis #Anemia #Possible history of CKD ? I will obtain stat labs for the patient: CBC, CMP, museum, phosphorus, VBG. ? Placed on bicarb drip with 150 mill equivalent 100 cc/h stat ? Nephrology stat consult ? Consult general surgery for dialysis catheter ? We will need to dialyze this patient secondary to acidosis, hyperkalemia, worsening renal function ? Check iron studies iron TIBC ferritin. Hemoglobin 10.1. Continue to monitor, check FOBT ? Transfer patient to ICU ? Place Higgins catheter for accurate urine output ? We do not have previous labs on the patient. I will try to track down patient's primary care doctor and obtain copies of previous labs. ? Recheck CBC CMP postdialysis. ?Hold nephrotoxic agents. Stop sitagliptin, metformin, glipizide ? Hold amlodipine, clonidine. Full code DVT prophylaxis: Heparin SQ twice daily 02/20/2025 repeat labs pending at [facility] switch to d5 dialysis not planned today she feels tired at this time will discuss care with nephrology K slightly elevated will recheck labs at 4 pm lactate 4.0 02/21/2025 phosp 1.5 cr 4.2 bun 45 anion gap 19.1 sodium 132 K 5.1 albumin 3.1 renal US: Echogenic kidneys of normal size. No hydronephrosis 144/95 pulse 107 resp 15 room air no dialysis planned today pt subjectively feels better continue current care February 22, 2025 Chart reviewed extensively. Patient admitted to the hospital on 02/18/2025. Per patient her kidney function was last checked in December 2024 at which time she was told her GFR is at 41. About 3 to 4 days prior to presentation she started to complain of increased upper body weakness, thereafter followed by generalized weakness to the point where she was unable to carry on her ADLs. At the baseline patient ambulates small distances within the house to her parking garage. She does not drive. She does sometimes need to use a cane. She had been referred to [facility] nephrology by her primary care physician in December but is not scheduled for an appointment until June as of now. On day of admission after presenting with generalized weakness she was found to have RADHA on CKD, multiple electrolyte abnormalities. She underwent placement of temporary HD catheter and received 1 session of hemodialysis. Following dialysis she is currently making good urine output. Over the last 24 hours urine output has been over 4 L. Hyperkalemia has resolved. Metabolic acidosis has corrected. No obvious cause of this acute decompensation is readily evident at this time. Her renal ultrasound revealed a 10.9 cm kidney with echogenic parenchyma. Left kidney 9.8 cm consistent with chronic kidney disease. Urine analysis had 2+ protein and trace ketones. Hepatitis serologies were negative. Echocardiogram is ordered today, in reviewing stress test from December 2024, EF at that time was estimated to be at 82%. Note is made of subendocardial ischemia not excluded at the time. Will obtain echocardiogram for further assessment. Hospital course has been complicated by anemia, hemoglobin dropped to 8.5. Patient has a history of atrial fibrillation and her Xarelto is currently on hold given the anemia. This will need to be restarted after an FOBT has been obtained and active bleeding excluded. She is currently on IV iron. DVT prophylaxis with heparin 5000 subcutaneous every 12 hours Today she is noted to have RVR with heart rate ranging between 100 to 120/min. We will start her on metoprolol 25 mg p.o. twice daily Her chart notes a prior history of atenolol started as anaphylaxis, however per history this does not seem to be accurate. Patient states that she was only atenolol for almost 1 year and then started developing shortness of breath. It appears the atenolol was being used for panic attacks. Atenolol was discontinued and she was switched instead to lisinopril however her symptoms did not improve and it was thought she may have an allergic reaction to lisinopril as well. Currently she is on losartan, amlodipine and clonidine for her blood pressure management. In keeping with the above history this does not appear to be an IgE mediated reaction to atenolol therefore anaphylaxis is unlikely. Patient is amenable to a trial of metoprolol 25 mg p.o. twice daily. We will start this today and closely monitor her for any adverse events. If blood pressure allows we will resume her home dose of amlodipine next. Resume home doses of gabapentin 200 mg p.o. twice daily. discontinue insulin sliding scale given that patient has recently recovered from hypoglycemia and was on a D5 infusion until last night. Closely monitor blood sugar levels. Check HbA1c. Continue to hold OHA's. Remove temporary HD catheter as no further dialysis anticipated during this admission course. Patient will need to follow-up with nephrology sooner than June. Highly likely she will require dialysis in the long-term, needs to be established for fistula planning. Patient is significantly deconditioned related to her Ongoing illness, PT assessment reordered. OT requested. Currently saturating 89% on 2 L/min nasal cannula. Patient typically does not use any home oxygen. Check chest x-ray. Resume home dose of albuterol as needed. Remove Higgins catheter February 23, 2025 Continues to complain of generalized weakness. Chest x-ray taken yesterday revealed a right lower lobe pneumonia. Also noted bilateral pulmonary congestion. Started on ceftriaxone 1 g IV every 24 hours. Not able to expectorate much therefore he unable to get sputum culture. Heart rate is much better controlled today. Mostly ranging in the 70s. Blood pressure trending towards hypertension 150-160 systolic. Resume atorvastatin 10 mg daily. Additionally add hydralazine 25 mg p.o. 3 times daily. Continue metoprolol 25 mg twice daily as started yesterday. Oxygen requirement up to 4 L/min today, likely a combination of newly noted pneumonia and pulmonary edema. To resume Lasix orally today if okay per nephrology. Creatinine at 3.8. Electrolytes within range. Added incentive spirometry. Hemoglobin at 9.1 today, improved over previous. Fingersticks reviewed, ranging between 207-260. HbA1c at 5.6. Holding off on any insulin products for now. Awaiting transfer out of ICU to MedSurg pending bed availability. PDMP PDMP Reviewed: Not Reviewed Attestations Medical Necessity Statement*: Started on antibiotics for pneumonia, closely monitor clinical status, oxygen requirement at 4 L/min today. Encourage out of bed and ambulation. Coding Level of Care Code Acute Code for Chg Fwd Diagnoses Acute kidney injury N17.9 Dehydration E86.0 Hyperkalemia E87.5 Hypoglycemia E16.2 High anion gap metabolic acidosis E87.29 Weakness R53.1 Acute renal failure, unspecified acute renal failure type N17.9 Acute renal failure type: unspecified Metabolic acidosis E87.20 Lactic acidosis E87.20 Anemia D64.9 Oliguria R34
[2025-02-23] MEDS: ferric gluconate 125 MG in sodium chloride 0.9% (100 ml) 100 ML 110 MG IV (12:55)
[2025-02-23] MEDS: azithromycin 250 mg Tablet 500 MG PO (12:58)
[2025-02-23] MEDS: ATORVASTATIN 10 MG TABLET 20 MG PO (17:34)
[2025-02-23 18:04] LABS: Adenovirus Not Detected (NOT DETECT); Chlamydia Pneumoniae Not Detected (NOT DETECT); Coronavirus 229E,HKU1,NL63,OC4 Not Detected (NOT DETECT); Human Metapneumovirus Not Detected (NOT DETECT); Human Rhinovirus/Enterovirus Not Detected (NOT DETECT); Influenza A Not Detected (NOT DETECT); Influenza A H1 Not Detected (NOT DETECT); Influenza A H1-2009 Not Detected (NOT DETECT); Influenza A H3 Not Detected (NOT DETECT); Influenza B Not Detected (NOT DETECT); Mycoplasma Pneumoniae Not Detected (NOT DETECT); Parainfluenza Virus Type 1 Not Detected (NOT DETECT); Parainfluenza Virus Type 2 Not Detected (NOT DETECT); Parainfluenza Virus Type 3 Not Detected (NOT DETECT); Parainfluenza Virus Type 4 Not Detected (NOT DETECT); Respiratory Syncytial Virus A Not Detected (NOT DETECT); Respiratory Syncytial Virus B Not Detected (NOT DETECT); SARS-COV-2 Not Detected (NOT DETECT)
[2025-02-23] MEDS: duloxetine 20 mg Capsule PO (20:27)
[2025-02-23] MEDS: sennosides 8.6 mg Tablet 17.2 MG PO (20:27)
[2025-02-23 20:54] LABS: Glucose Point of Care 342 mg/dL (70-110)
[2025-02-24] VITALS (20 sets, daily range): BP systolic 148–159; BP diastolic 85–103; PULSE 65–79; RESP 15–29; TEMP 36.2–36.8; O2SAT 89–100; BMI 30.8
[2025-02-24 01:06] LABS: Glucose Point of Care 317 mg/dL (70-110)
--- NOTE | 2025-02-24 04:00 | XRR_ITS ---
PROCEDURE INFORMATION: Exam: XR Chest Exam date and time: 02/24/2025 4:35 AM Age: 79 years old Clinical indication: Condition or disease; Other: Pneumonia follow up; Additional info: F/up pulm edema, pneumonia TECHNIQUE: Imaging protocol: Radiologic exam of the chest. Views: 1 view. COMPARISON: CR XR chest 1V portable [id number] 02/22/2025 1:27 PM FINDINGS: Lungs: Improved interstitial edema compared to the prior exam. Pleural spaces: Persistent left pleural effusion and infiltrate. Heart/Mediastinum: Prominence of the right hilar contour. Bones/joints: Unremarkable. XR/XR chest 1V portable [id number] IMPRESSION: Persistent left lower lobe infiltrate and effusion. Improved interstitial edema. Prominence of the right hilar contour similar in appearance
[2025-02-24 05:40] LABS: Basophils % 0.2 %; Eosinophils # 0.2 10^3/uL (0.0-0.8); Eosinophils % 1.9 %; Hematocrit 26.6 % (36-47); Lymphocytes # 1.1 10^3/uL (0.8-4.8); Lymphocytes % 12.7 %; Mean Corpuscular HGB Conc 32.3 g/dL (30-55); Mean Corpuscular Hemoglobin 28.4 pg (27-33); Mean Corpuscular Volume 87.8 fl (85-98); Mean Platelet Volume 11.3 fL (7.4-10.4); Monocytes # 1.3 10^3/uL (0.2-0.9); Monocytes % 13.9 %; Neutrophils # 6.33 10^3/uL (1.8-7.7); Neutrophils % 70.6 %; Nucleated Red Blood Cells % 0 %; Platelet Count 277 10^3/cmm (157-399); Red Blood Count 3.03 10^6/uL (3.85-5.65); Red Cell Distribution Width 14.3 % (12.1-15.1); White Blood Count 8.97 10^3/uL (3.29-11.43)
[2025-02-24 05:52] LABS: Alanine Aminotransferase 27 U/L (0-33); Albumin Level 3.3 g/dL (3.5-5.2); Alkaline Phosphatase 59 U/L (35-105); Anion Gap 19.5 (5-19); Aspartate Amino Transferase 34 U/L (0-32); Blood Urea Nitrogen 51 mg/dL (8-23); Calcium 8.6 mg/dL (8.5-10.5); Carbon Dioxide 27 mmol/L (22-29); Chloride 95 mmol/L (98-107); Creatinine Clr Calc Pharmacy 12.0098; Globulin 3.4 g/dL (1.3-4.6); Glucose 262 mg/dL (65-115); Magnesium 1.8 mg/dL (1.7-2.3); Osmolality Calculated 307 mOsm/kg (285-295); Phosphorus 2.4 mg/dL (2.5-4.5); Potassium 4.5 mmol/L (3.5-5.1); Sodium 137 mmol/L (136-145); Total Bilirubin 0.5 mg/dL (0.15-1.2); Total Protein 6.7 g/dL (6.6-8.7)
[2025-02-24] MEDS: cefTRIAXone 1,000 mg SDV 1000 MG IVP (06:16)
[2025-02-24 08:40] LABS: Glucose Point of Care 235 mg/dL (70-110)
[2025-02-24] MEDS: gabapentin 100 mg Capsule 200 MG PO (08:43)
[2025-02-24] MEDS: pantoprazole DR 40 mg Tablet PO (08:43)
[2025-02-24] MEDS: heparin 5,000 unit/mL INJ 1 mL 5000 UNIT SUBCUT (08:44)
[2025-02-24] MEDS: docusate sodium 100 mg Capsule PO (08:44)
[2025-02-24] MEDS: metoprolol tartrate 25 mg Tablet PO (08:45)
[2025-02-24] MEDS: lactulose oral liq 20 gm/30 mL UDC 10 GM PO (08:46)
[2025-02-24] MEDS: FUROsemide 10 mg/mL SDV 4mL 40 MG IVP (09:54)
[2025-02-24] MEDS: amlodipine 10 mg Tablet PO (09:54)
--- NOTE | 2025-02-24 11:12 | PC.SOCIAL ---
IMM Updated Updated pt on IMM. No questions voiced. Provided pt a copy. Initialed, dated, & timed copy in chart.
--- NOTE | 2025-02-24 11:23 | PC.NURSE ---
When finalizing medications, it was noted that new Rx were accidentally sent to [facility] rather than [facility]. I called [place] and cancelled the medications then called [facility] pharmacy and spoke with Selina and provided verbal orders for Augmentin, Azithromycin, Metoprolol, and Furosemide changes. The order for Humalog wasn't specific for a verbal order, so I called and spoke with Dr. Watkins and requested that she e-scribe the Humalog again to [facility] pharmacy and she states she will send them. I informed Kaelyn Caicedo RN primary nurse that this was completed for patient to go to SNF today.
[2025-02-24 12:52] LABS: Glucose Point of Care 260 mg/dL (70-110)
[2025-02-24] MEDS: azithromycin 250 mg Tablet 500 MG PO (13:16)
[2025-02-24] MEDS: ferric gluconate 125 MG in sodium chloride 0.9% (100 ml) 100 ML 110 MG IV (13:16)
--- NOTE | 2025-02-24 15:06 | PC.NURSE ---
Discharged patient to [facility]. Ready transport picked up the patient. Signature form signed. Discharge packet given to Wireless Technician. IV removed. removed dialysis catheter site assessed and it is unremarkable. Left with all belongings.
--- NOTE | 2025-02-24 15:29 | PM.DCS ---
Discharge Providers Date of Admission: 02/18/25 20:04 Date of Discharge: February 24, 2025 Attending Provider at Admission: Linda Bauer MD Attending Provider at Discharge: Tawny Watkins MD Primary Care Provider: MAYO Cosme Diagnoses at Discharge Discharge Diagnosis (1) Acute kidney injury: Status: Acute (2) Dehydration: Status: Acute (3) Hyperkalemia: Status: Acute (4) Hypoglycemia: Status: Acute (5) High anion gap metabolic acidosis: Status: Acute (6) Weakness: Status: Acute (7) Acute renal failure: Status: Acute Qualifiers: Acute renal failure type: unspecified Qualified Code(s): N17.9 - Acute kidney failure, unspecified (8) Metabolic acidosis: Status: Acute (9) Lactic acidosis: Status: Acute (10) Anemia: Status: Acute (11) Oliguria: Status: Acute Reason for Visit Reason for Visit: weakness x 3 days Hospital Course Hospital Course Patient admitted to the hospital on 02/18/2025. Per patient her kidney function was last checked in December 2024 at which time she was told her GFR is at 41. About 3 to 4 days prior to presentation she started to complain of increased upper body weakness, thereafter followed by generalized weakness to the point where she was unable to carry on her ADLs. She had been referred to [facility] nephrology by her primary care physician in December but is not scheduled for an appointment until June as of now. On day of admission after presenting with generalized weakness she was found to have RADHA on CKD, multiple electrolyte abnormalities. She underwent placement of temporary HD catheter and received 1 session of hemodialysis. Following dialysis she is currently making good urine output. cr has plateud at 3.8 with cr cl of ~15. Hyperkalemia has resolved. Metabolic acidosis has corrected. No obvious cause of this acute decompensation is readily evident at this time. Her renal ultrasound revealed a 10.9 cm kidney with echogenic parenchyma. Left kidney 9.8 cm consistent with chronic kidney disease. Urine analysis had 2+ protein and trace ketones. Hepatitis serologies were negative. Echocardiogram showed LV systolic function is borderline normal with EF of 50-55% with Grade 3 diastolic dysfunction, mild pulmonary hypertension. Hospital course has been complicated by anemia, hemoglobin dropped to 8.5. Patient has a history of atrial fibrillation and her Xarelto was briefly held. FOBT was negative, active bleeding excluded. Xarelto was resumed at lower dose of 15mg daily. We discussed home addition to Eliquis instead of Xarelto as was the recommendation for EGFR less than 15, however patient stated she has tried Eliquis before and did not tolerate this well. Therefore Xarelto was maintained with a lower dose. She received iron supplementation with IV iron. Hospital course also notable for A-fib with RVR for which she was started on metoprolol 25 mg p.o. twice daily. Her chart notes a prior history of atenolol started as anaphylaxis, however per history this does not seem to be accurate. Patient states that she was only atenolol for almost 1 year and then started developing shortness of breath. She tolerated trial of metoprolol. Amlodipine 10 mg daily was continued. She was also started on antibiotics with ceftriaxone and azithromycin during hospital course which has been transitioned to oral Augmentin and azithromycin at the time of discharge as she developed a pneumonia during hospital stay. WBC count has now recovered back to normal from 14,000-8000 today. Patient was requiring up to 4 L of oxygen supplementation until yesterday. Today she has been able to be weaned down to room air. Lasix has been continued at 20 mg p.o. twice daily. Patient was hypoglycemic upon admission, likely this was related to use of OHA's and stacking of hypoglycemic agents due to kidney dysfunction. Her A1c returned at 5.2. Patient states she has been trying to lose weight over the past 2 years to attain better glycemic control. In keeping with the above history, her OHA's have been discontinued at discharge including metformin linagliptin and glipizide. Metformin will likely need to remain discontinued for the long-term to avoid development of metabolic acidosis. For now patient is being discharged with an insulin Humalog low-dose sliding scale. Should she wish to reinitiate OHA's in the future, linagliptin may be most appropriate, however would defer this decision making to her primary care physician for the long-term. Discussed with patient that she will likely need to initiate HD in the long run,may need fistula planning in anticipation, referral provided to nephrology Physical Exam Narrative: General: No acute distress, AO x3 HEENT: PERRLA, pupils bilaterally equal and reactive, pallors not present Chest: Normal vesicular breath sounds, no added sounds, equal good air entry bilaterally CVS: S1-S2 regular, no murmurs, no tachycardia, no gallops, no rubs Abdomen: Soft, nontender, no organomegaly, bowel sounds present Neuro: No focal deficits, no facial deformity, AO x3, power 5/5 in all limbs Urinary Catheter Management: Higgins Latex Free: Cath Placed During This Visit: yes, but has since been removed by the nurse Reason for Continuing Indwelling Catheter: Decision to DC Catheter Urinary Catheter Date of Insertion: 02/19/25 Urinary Catheter Time of Insertion: 10:14 Date Urinary Catheter Removed: 02/22/25 Time Urinary Catheter Discontinued: 16:39 Discharge Data Studies Completed and Pending Completed Studies During Hospitalization Category Date Time Status CXRP [XR chest 1V portable [id number]] Routine Exams 02/22/25 13:13 Completed XR chest 1V portable [id number] AM LABS Exams 02/24/25 04:00 Completed CV. echo complete* [id number] Routine Ultrasound 02/22/25 13:05 Completed US renal BI* [id number] Stat Ultrasound 02/20/25 09:39 Completed Pending at discharge Category Date Time Status MRSA PCR OZH (swab) Routine Lab 02/23/25 18:20 Ordered Radiology Impressions Renal Ultrasound 02/20/25 09:39 IMPRESSION: Echogenic kidneys of normal size. No hydronephrosis Chest X-Ray 02/24/25 04:00 IMPRESSION: Persistent left lower lobe infiltrate and effusion. Improved interstitial edema. Prominence of the right hilar contour similar in appearance Laboratory Results WBC 8.97 10^3/uL (3.29-11.43) 02/24/25 04:52 RBC 3.03 10^6/uL (3.85-5.65) L 02/24/25 04:52 Hgb 8.60 g/dL (11.27-16.99) L 02/24/25 04:52 Hct 26.6 % (36-47) L 02/24/25 04:52 MCV 87.8 fl (85-98) 02/24/25 04:52 MCH 28.4 pg (27-33) 02/24/25 04:52 MCHC 32.3 g/dL (30-55) 02/24/25 04:52 RDW 14.3 % (12.1-15.1) 02/24/25 04:52 Plt Count 277 10^3/cmm (157-399) 02/24/25 04:52 MPV 11.3 fL (7.4-10.4) H 02/24/25 04:52 Neut % (Auto) 70.6 % 02/24/25 04:52 Lymph % (Auto) 12.7 % 02/24/25 04:52 [place] % (Auto) 13.9 % 02/24/25 04:52 Eos % (Auto) 1.9 % 02/24/25 04:52 Baso % (Auto) 0.2 % 02/24/25 04:52 Neut # (Auto) 6.33 10^3/uL (1.8-7.7) 02/24/25 04:52 Lymph # (Auto) 1.1 10^3/uL (0.8-4.8) 02/24/25 04:52 [place] # (Auto) 1.3 10^3/uL (0.2-0.9) H 02/24/25 04:52 Eos # (Auto) 0.2 10^3/uL (0.0-0.8) 02/24/25 04:52 Baso # (Auto) 0.0 10^3/uL (0.0-0.1) 02/24/25 04:52 Nucleated RBC % (auto) 0 % 02/24/25 04:52 Nucleated RBCs # 0.0 /100WBC 02/24/25 04:52 Specimen Type Venous 02/20/25 15:44 Sample Site Not specified 02/20/25 15:44 ABG pH 7.14 (7.35-7.45) L* 02/19/25 10:17 ABG pCO2 32.7 mmHg (35-45) L 02/19/25 10:17 ABG pO2 68.4 mmHg (80.0-100.0) L 02/19/25 10:17 ABG PO2/FiO2 Ratio 325 02/19/25 10:17 ABG HCO3 11.2 mmol/L (22-26) L 02/19/25 10:17 ABG O2 Saturation 91.7 02/19/25 10:17 ABG Base Excess -16.5 mmol/L (-2.0-2.0) L 02/19/25 10:17 Jacob Test N/a 02/20/25 15:44 VBG pH 7.38 (7.32-7.42) 02/20/25 15:44 VBG pCO2 43.3 mmHg (41-51) 02/20/25 15:44 VBG pO2 53.9 mmHg (25-40) H 02/20/25 15:44 VBG HCO3 25.8 mmol/L (24-28) 02/20/25 15:44 VBG Base Excess 0.5 mmol/L (-3.0-3.0) 02/20/25 15:44 VBG Hematocrit 31.3 % (37-47) L 02/20/25 15:44 A-a O2 Gradient 5.2 mmHg (5-10) 02/19/25 10:17 Hematocrit 30.7 % (37-47) L 02/19/25 10:17 Hgb O2 Saturation 90.8 % (95-100) L 02/19/25 10:17 Carboxyhemoglobin 0.9 %THgb (0.4-20.1) 02/19/25 10:17 Methemoglobin 0.1 % (0.4-1.5) L 02/19/25 10:17 Total Hemoglobin 10.0 g/dL (12-16) L 02/19/25 10:17 Sodium 133.0 mmol/L (131-143) 02/19/25 10:17 Potassium 6.2 mmol/L (3.5-5.0) H 02/19/25 10:17 Glucose 98.0 mg/dL (70-115) 02/19/25 10:17 Ionized Calcium 1.2 mmol/L (1.1-1.4) 02/19/25 10:17 O2 Delivery Device Not Reportable 02/20/25 15:44 FiO2 21.0 % 02/19/25 10:17 Bricklayer ID Broma 02/20/25 15:44 Sodium 137 mmol/L (136-145) 02/24/25 04:52 Potassium 4.5 mmol/L (3.5-5.1) 02/24/25 04:52 Chloride 95 mmol/L (98-107) L 02/24/25 04:52 Carbon Dioxide 27 mmol/L (22-29) 02/24/25 04:52 Anion Gap 19.5 (5-19) H 02/24/25 04:52 BUN 51 mg/dL (8-23) H 02/24/25 04:52 Creatinine 3.8 mg/dL (0.5-0.9) H 02/24/25 04:52 GFR Calculation Not Reportable 02/24/25 04:52 Glucose 262 mg/dL (65-115) H 02/24/25 04:52 POC Glucose 260 mg/dL (70-110) H 02/24/25 12:50 Estimat Average Glucose 114 02/23/25 03:21 Hemoglobin A1c 5.6 % (4.0-6.0) 02/23/25 03:21 Calculated Osmolality 307 mOsm/kg (285-295) H 02/24/25 04:52 Lactate 4.0 mmol/L (0.5-2.2) H 02/20/25 04:39 Calcium 8.6 mg/dL (8.5-10.5) 02/24/25 04:52 Phosphorus 2.4 mg/dL (2.5-4.5) L 02/24/25 04:52 Magnesium 1.8 mg/dL (1.7-2.3) 02/24/25 04:52 Iron 28 ug/dL (37-145) L 02/19/25 10:34 TIBC 296 mcg/dl 02/19/25 10:34 % Saturation 9.4 % (20-50) L 02/19/25 10:34 Unsat Iron Binding 268 ug/dL (112-347) 02/19/25 10:34 Ferritin 46 ng/mL (15-150) 02/19/25 10:34 Total Bilirubin 0.5 mg/dL (0.15-1.2) 02/24/25 04:52 AST 34 U/L (0-32) H 02/24/25 04:52 ALT 27 U/L (0-33) 02/24/25 04:52 Alkaline Phosphatase 59 U/L (35-105) 02/24/25 04:52 Creatine Kinase 107 U/L (26-192) 02/19/25 10:34 Total Protein 6.7 g/dL (6.6-8.7) 02/24/25 04:52 Albumin 3.3 g/dL (3.5-5.2) L 02/24/25 04:52 Globulin 3.4 g/dL (1.3-4.6) 02/24/25 04:52 25-OH Vitamin D Total 50 ng/mL (30-100) 02/19/25 10:34 PTH Intact 7.0 pg/mL (15-65) L 02/19/25 10:34 Calcium (PTH Intact) 10.0 mg/dL (8.5-10.5) 02/19/25 10:34 Urine Color Yellow (Yellow) 02/18/25 16:03 Urine Appearance Clear (CLEAR) 02/18/25 16:03 Urine pH 6.0 (5-7) 02/18/25 16:03 Ur Specific [place] 1.011 (1.005-1.030) 02/18/25 16:03 Urine Protein 2+ (Negative) A 02/18/25 16:03 Urine Glucose (UA) Negative (Normal) 02/18/25 16:03 Urine Ketones Trace (Negative) 02/18/25 16:03 Urine Blood Negative (Negative) 02/18/25 16:03 Urine Nitrate Negative (Negative) 02/18/25 16:03 Urine Bilirubin Negative (Negative) 02/18/25 16:03 Urine Urobilinogen 0.2 mg/dL (Negative) 02/18/25 16:03 Ur Leukocyte Esterase Negative (Negative) 02/18/25 16:03 Urine RBC 0-2 /hpf (0-2) 02/18/25 16:03 Urine WBC 0-5 /hpf (0-5) 02/18/25 16:03 Ur Squamous Epith Cells 0-5 /hpf (0-5) 02/18/25 16:03 Amorphous Sediment Not Reportable 02/18/25 16:03 Urine Bacteria None seen /hpf (NONE) 02/18/25 16:03 Hyaline Casts 5.36 /lpf 02/18/25 16:03 Ur Random Sodium 71 mmol/L 02/20/25 15:15 Ur Random Potassium 29 mmol/L 02/20/25 15:15 Ur Random Chloride 74 mmol/L 02/20/25 15:15 Urine Creatinine 19 mg/dL (28-217) L 02/20/25 15:15 Nasal MRSA (PCR) Cancelled 02/23/25 16:17 Complement C3 84 mg/dL (90-180) L 02/19/25 10:34 Complement C4 7 mg/dL (10-40) L 02/19/25 10:34 Adenovirus (PCR) Not detected (NOT DETECT) 02/23/25 16:01 C. pneumoniae DNA (PCR) Not detected (NOT DETECT) 02/23/25 16:01 Coronavirus 229E (PCR) Not detected (NOT DETECT) 02/23/25 16:01 Hep Bs Antigen Non-reactive (Nonreactive) 02/19/25 10:34 Hep Bs Antibody < 3.5 (11.5-1000) L 02/19/25 10:34 Hepatitis C Antibody Cancelled 02/22/25 03:57 Human Metapneumovir PCR Not detected (NOT DETECT) 02/23/25 16:01 Influenza A (H1) PCR Not detected (NOT DETECT) 02/23/25 16:01 Influ A (H1/09) PCR Not detected (NOT DETECT) 02/23/25 16:01 Influenza A (H3) PCR Not detected (NOT DETECT) 02/23/25 16:01 Influenza Type A (PCR) Not detected (NOT DETECT) 02/23/25 16:01 Influenza Type B (PCR) Not detected (NOT DETECT) 02/23/25 16:01 M. pneumoniae (PCR) Not detected (NOT DETECT) 02/23/25 16:01 Parainfluenza 1 (PCR) Not detected (NOT DETECT) 02/23/25 16:01 Parainfluenza 2 (PCR) Not detected (NOT DETECT) 02/23/25 16:01 Parainfluenza 3 (PCR) Not detected (NOT DETECT) 02/23/25 16:01 Parainfluenza 4 (PCR) Not detected (NOT DETECT) 02/23/25 16:01 RSV Type A (PCR) Not detected (NOT DETECT) 02/23/25 16:01 RSV Type B (PCR) Not detected (NOT DETECT) 02/23/25 16:01 Entero/Rhino (PCR) Not detected (NOT DETECT) 02/23/25 16:01 SARS-CoV-2 (PCR) Not detected (NOT DETECT) 02/23/25 16:01 Group A Strep Rapid Negative (Negative) 02/18/25 16:10 Vitals Last Vital Signs Temp 97.1 F L 02/24/25 15:04 Pulse 78 02/24/25 15:04 Resp 20 H 02/24/25 15:04 BP 155/85 02/24/25 15:04 Pulse Ox 98 02/24/25 15:04 O2 Del Method Room Air 02/24/25 14:00 O2 Flow Rate 3 02/23/25 08:18 Discharge Plan Discharge Patient Disposition: Xfer SNF Condition: Stable Prescriptions: New azithromycin 250 mg Tablet 500 mg PO Q24H 3 Days Qty: 6 0RF metoprolol tartrate 25 mg Tablet 25 mg PO BID@0900,2100 30 Days Qty: 60 0RF amoxicillin-pot clavulanate 875-125 mg tablet 1 tab PO BID 5 Days Qty: 10 0RF insulin lispro [Humalog KwikPen Insulin] 100 unit/mL insulin pen See Rx Instructions .ROUTE .COMPLEX Qty: 15 0RF Rx Instructions: Low dose sliding scale as instructed in discharge instructions (DME) pen needle, diabetic [1st Tier Unifine Pentips] 31 gauge x 1/4 needle See Rx Instructions .Route Qty: 100 0RF Rx Instructions: As directed Continued hydrocodone-acetaminophen [[place]] 5-325 mg tablet 1 tab PO TID PRN (Reason: Pain) amlodipine 10 mg tablet 10 mg PO DAILY estradiol 0.25 mg PO DAILY albuterol sulfate [ProAir HFA] 90 mcg/actuation HFA aerosol inhaler 1 inh INHALATION Q4H PRN (Reason: Wheezing) simvastatin 20 mg tablet 20 mg PO QPM tramadol 50 mg tablet 50 mg PO BID PRN (Reason: Pain) Xarelto 20 mg tablet 15 mg PO QPM gabapentin 100 mg capsule 200 mg PO BID meclizine 25 mg tablet 25 mg PO QID PRN (Reason: Dizziness Or Vertigo) duloxetine 20 mg capsule, delayed rel sprinkle 20 mg PO BEDTIME clonidine HCl 0.1 mg tablet 0.1 mg PO BEDTIME tizanidine 4 mg tablet 4 mg PO BEDTIME erythromycin 2 % Ointment 1 ea TOPICAL DAILY PRN (Reason: Skin Irritation) triamcinolone acetonide 0.1 % Cream 1 applic TOPICAL DAILY PRN (Reason: Skin Irritation) nystatin 100,000 unit/gram Cream 1 applic TOPICAL TID PRN (Reason: Skin Irritation) mupirocin 2 % Ointment 1 applic TOPICAL TID PRN (Reason: Skin Irritation) fenofibric acid (choline) 45 mg capsule,delayed release(DR/EC) 45 mg PO DAILY cyanocobalamin (vitamin B-12) [Vitamin B-12] 1,000 mcg Tablet 1,000 mcg PO DAILY biotin 10,000 mcg Capsule 10,000 mcg PO DAILY pyridoxine (vitamin B6) [Vitamin B-6] 100 mg Tablet 100 mg PO DAILY folic acid 800 mcg Tablet 0.8 mg PO DAILY cranberry extract 500 mg Capsule 500 mg PO DAILY Rx Instructions: administer with meals calcium carbonate-vitamin D3 [Calcium 600 + D(3)] 600 mg-10 mcg (400 unit) Tablet 2 tab PO DAILY salmon oil-omega-3 fatty acids 1,000-200 mg Capsule 1 cap PO DAILY Eye Health AREDS-2 250-90-40-1 mg Capsule 1 tab PO BID ascorbic acid (vitamin C) [Vitamin C With Yael Hips] 1,000 mg Tablet 1,000 mg PO DAILY zinc 50 mg Tablet 50 mg PO DAILY vitamin E (dl, acetate) 180 mg (400 unit) Capsule 180 mg PO DAILY cinnamon bark 9,000 mg PO QPM melatonin 5 mg Tablet 5 mg PO BEDTIME Changed furosemide 20 mg tablet 20 mg PO BID 30 Days Qty: 60 0RF Discontinued glipizide 5 mg tablet 10 mg PO DAILY Rx Instructions: 2 morning + 1 evening losartan 50 mg tablet 50 mg PO DAILY metformin 1,000 mg tablet 1,000 mg PO BID glipizide 5 mg tablet 5 mg PO QPM Rx Instructions: 2 morning + 1 evening potassium chloride 10 mEq tablet extended release 10 meq PO DAILY Januvia 100 mg Tablet 100 mg PO DAILY Discharge Orders: Discharge Order (Routine); Ordered 02/24/25 Ordered By: Tawny Watkins Other Ambulatory Orders: Hemoglobin and Hematocrit (Routine) Timeframe: 2 Days Facility: [facility] - Location: Lab - Main Lab Ordered By: Tawny Watkins Referrals: [facility] [place] [Outside] Referral Note: [facility] to schedule appointments ,for Idalia Galindo appointments to [facility] with [facility] transport. Alexandra Funez FNP [Primary Care Provider, Nurse Practitioner] - 02/25/25 1:00 pm Shawna Hamm MD [Referring] - 7-10 days Discharge Diet: As Directed Discharge Activity: Increase activity as tolerated and As per PT/OT instructions Patient Instructions: Metoprolol (By mouth), Amoxicillin (By mouth), Azithromycin (By mouth) (Zithromax, Zithromax Tri-Mina, Zithromax..., Insulin Lispro (By injection) (Humalog, Humalog Pen, Lispro-PFC,..., Apixaban (By mouth) (Eliquis), Dehydration (DC), Acute Kidney Injury (DC), Metabolic Acidosis (GEN), What to Do if Your Blood Sugar is Low (DC), Opioid Safety, Patient Portal & Bina Instructions Activity Restrictions/Additional Instructions: Insulin Corrective Low-Dose Regimen Fingerstick Blood Glucose Insulin Units 141-180 mg/dl 2 unit/SQ 181-220 mg/dl 4 units/SQ 221-260 mg/dl 6 units/SQ 261-300 mg/dl 8 units/SQ 301-350 mg/dl 10 units/SQ 351-400 mg/dl 12 units/SQ greater than 400 mg/dl 14 units/SQ Discharge Attestations Time Spent in Discharge Care*: greater than 30 min Quality Metrics Clinical Quality Measures [ No reported AMI, CVA or VTE this stay] Coding Level of Care Code Acute Code for Chg Fwd Diagnoses Acute kidney injury N17.9 Dehydration E86.0 Hyperkalemia E87.5 Hypoglycemia E16.2 High anion gap metabolic acidosis E87.29 Weakness R53.1 Acute renal failure, unspecified acute renal failure type N17.9 Acute renal failure type: unspecified Metabolic acidosis E87.20 Lactic acidosis E87.20 Anemia D64.9 Oliguria R34
--- NOTE | 2025-02-24 21:47 | PM.PN ---
Subjective Subjective: feels ok Medications: Reviewed: Yes Vitals/I&O/Wt Last Vital Signs Temp 97.1 F L 02/24/25 15:04 Pulse 78 02/24/25 15:04 Resp 20 H 02/24/25 15:04 BP 155/85 02/24/25 15:04 Pulse Ox 98 02/24/25 15:04 O2 Del Method Room Air 02/24/25 14:00 O2 Flow Rate 3 02/23/25 08:18 02/24/25 02/24/25 02/24/25 06:59 14:59 22:59 Intake Total 200 / 200 Output Total 950 / 1650 300 / 300 Balance -950 / -940 -100 / -100 Weight last 48 hrs Weight 78.953 kg Weight 79.832 kg Physical Exam Narrative: Elderly lady in bed sitting up and using oxygen. Vital signs noted and stable. HEENT normocephalic atraumatic. Neck is supple no JVP Lungs -have right-sided dullness at areas and crackles Heart regular rate and rhythm. Abdomen is soft positive bowel sounds. Extremities 2+ chronic edema. Positive pulses. 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 Patient has a tremor Urinary Catheter Management: Higgins Latex Free: Cath Placed During This Visit: yes, but has since been removed by the nurse Reason for Continuing Indwelling Catheter: Decision to DC Catheter Urinary Catheter Date of Insertion: 02/19/25 Urinary Catheter Time of Insertion: 10:14 Date Urinary Catheter Removed: 02/22/25 Time Urinary Catheter Discontinued: 16:39 Data 02/24/25 04:52 02/24/25 04:52 A&P Assessment and plan (1) Acute renal failure: See below acute on chronic renal failure. Plan 79-year-old lady diabetic hypertensive, spinal stenosis, chronic back pain. 1. CKD : baseline not known Patient will likely need need to initiate chronic dialysis in the near future. 2. Hypoglycemia likely from her diabetic medications, glucose has improved to 88. Monitor off of IV fluids 3. Acute on chronic renal failure likely from medications. Patient required emergent dialysis for metformin associated lactic acidosis. cR IMPROVING - renal ultrasound revealed 10.9 cm right kidney with echogenic parenchyma. Left kidney 9.8 cm also oncogenic consistent with chronic kidney disease -Urinalysis 2+ protein had trace ketones. 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 Hypercalcemia- Calcium has improved from 11.1-8.8 5. Please give magnesium 6. Anemia iron saturation 9.4% with a ferritin of 46. Her hemoglobin is 8.5. Please continue with IV iron and epo. 7. Pneumonia antibiotics as per primary care please dose for CKD stage IV-V. 8. Patient has effusions and leg edema we will restart furosemide. PDMP PDMP Reviewed: Not Reviewed Attestations Medical Necessity Statement*: PER [facility] Coding Level of Care Code Acute Code for Chg Fwd Diagnoses Acute renal failure, unspecified acute renal failure type N17.9 Acute renal failure type: unspecified
== END 2025-02-24 14:00 | DRG 682 ==
LOC: ER 19:39 → MEDSURG 20:05 → CSU 21:37 → ICU 02-19 12:06
PROVIDERS: Internal Medicine; Internal Medicine Nephrology; Admitting Provider Internal Medicine; Emergency Provider Student in an Organized Health Care Education/Training Program; PCP Nurse Practitioner Family; Visit Provider Student in an Organized Health Care Education/Training Program
DX: N17.9 Acute kidney failure, unspecified (principal); J18.9 Pneumonia, unspecified organism; E87.20 Acidosis, unspecified; E78.00 Pure hypercholesterolemia, unspecified; E11.649 Type 2 diabetes mellitus with hypoglycemia without coma; E86.0 Dehydration; R60.9 Edema, unspecified; E87.6 Hypokalemia; E87.5 Hyperkalemia; E11.40 Type 2 diabetes mellitus with diabetic neuropathy, unspecified; E11.22 Type 2 diabetes mellitus with diabetic chronic kidney disease; N18.9 Chronic kidney disease, unspecified; I12.9 Hypertensive chronic kidney disease with stage 1 through stage 4 chronic kidney disease, or unspecified chronic kidney disease; G89.29 Other chronic pain; M54.9 Dorsalgia, unspecified; T50.3X5A Adverse effect of electrolytic, caloric and water-balance agents, initial encounter; T46.5X5A Adverse effect of other antihypertensive drugs, initial encounter; E83.52 Hypercalcemia; D63.1 Anemia in chronic kidney disease; D72.829 Elevated white blood cell count, unspecified; N18.5 Chronic kidney disease, stage 5; I48.91 Unspecified atrial fibrillation; M48.062 Spinal stenosis, lumbar region with neurogenic claudication; Z79.899 Other long term (current) drug therapy; Z79.84 Long term (current) use of oral hypoglycemic drugs; Z88.5 Allergy status to narcotic agent
CPT/HCPCS: 36415; 36416; 36600; 51702; 71045; 76770; 80051; 80053; 81001; 82274; 82306; 82310; 82330; 82436; 82550; 82570; 82728; 82803; 82805; 82962; 83036; 83540; 83550; 83605; 83735; 83970; 84100; 84133; 84300; 85025; 86160; 86706; 86803; 87081; 87340; 87486; 87581; 87633; 87880; 90935; 93005; 93306; 96365; 96366; 96372; 96374; 96375; 96376; 97110; 97116; 97161; 97165; 97530; 97535; 99285; A9270; J0612; J0696; J1642; J1644; J1756; J1815; J1938; J2405; J2470; J2916; J3475; J7040; J7042; J7060; J7070; J7120; J7799; J9999; P9047; Q0144; Q3014; Q5105

== ENCOUNTER 2025-06-14 14:12 | Emergency (ER) | payer MEDICARE, OTHER, SELFPAY ==
--- OUTSIDE RECORDS SUMMARY | 2025-06-14 14:40 | XMS_ITS | Encounter Summary ---
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 Name Role Phone Unavailable Primary Care Provider Unavailabl e Encounter Details Date Type Department Care Team (Latest Contact Info) Description 08/15/1998 Outpatient Historical [facility] [address] [address] Sumaya Cox MD NO ADDRESS ON FILE Other screening mammogram (Primary Dx) Social History Tobacco Use Types Packs/Day Years Used Date Smoking Tobacco: Never Assessed Comments Unknown Sex and Gender Information Value Date Recorded Sex Assigned at Not on file 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
--- OUTSIDE RECORDS SUMMARY | 2025-06-14 14:40 | XMS_ITS | Data Portability ---
Author Organization [facility] Frankie Mcdonald, [facility] Address [address] [address] Assessment No assessment recorded. Plan of Treatment Reminders Order Date Submit Date Provider Last Modified By Organization Details Last Modified Time Details Appointments None record ed. Lab None record ed. Referral None record ed. Procedures None record ed. Surgeries None record ed. Imaging None record ed. Medication Orders None record ed. Patient TargetsNo targets recorded. Patient Instructions Encounter Date Encounter Id Patient Instructions Last Modified By Organization Details Last Modified Time 03/01/2025 [id number] hospital records reviewed; she has been waiting for nephrology referral, but first appt not until June. Required dialysis while in hospital. anemia worse while in hospital; fobt negative; given IV iron blood pressure too high. d/c clonidine. Start losartan 25mg dialy and will monitor renal function. D/c several vitamins and supplements. Start tresiba at 15 units at HS with elevated sugars. metformin, gilpizide, and linagliptin stopped with hypoglycemia. Will need to avoid metformin going forward f/u 1 week. [email or web address] Not available 03/02/2025 17:39:07 Reason for Referral None Reported. Problems Name Problem SNOMED Code Status Onset Date Resolution Date Notes Provider Name and Address Organization Details Recorded Time Post-discharg e follow-up 291527995 [facility] Metabolic acidosis 81888624 Active 2024 [facility] Chronic obstructive pulmonary disease 82891845 Active 2024 NANI downing [facility], [place] 5 15:47:58 Hypertensive heart disease 88447518 Active 2024 NANI downing [facility], [place]. 15:47:59 Problem Notes None recorded. Medical Equipment None Reported. Medications Name Sig Start Date Stop Date Status Note LastModified by Organization Details LastModified Time prednisone 10 mg tablet TAKE 4 TABLETS DAILY FOR TWO DAYS, THREE TABLETS DAILY FOR TWO DAYS, TWO TABLETS DAILY FOR TWO DAYS, THEN ONE TABLET DAILY FOR TWO DAYS THEN STOP. active Not Available Not Available No t Available azithromycin 250 mg tablet TAKE 2 TABLETS BY MOUTH ON DAY 1, THEN TAKE 1 TABLET DAILY ON DAYS 2-5 active Not Available Not Available No t Available tizanidine 4 mg tablet TAKE ONE TABLET BY MOUTH AT BEDTIME. active Not Available Not Available No t Available hydrocodone 5 mg-acetaminoph en 325 mg tablet Take 1 tablet every 8 hours by oral route as needed for 30 days. 2024 active Not Available Not Available Not Avai lable tramadol 50 mg tablet TAKE ONE TABLET BY MOUTH EVERY 12 hours NEEDED FOR pain. active Not Available Not Available No t Available meclizine 25 mg tablet TAKE ONE TABLET BY MOUTH EVERY SIX hours NEEDED FOR dizziness . active Not Available Not Available No t Available amlodipine 10 mg tablet TAKE ONE TABLET BY MOUTH EVERY DAY. active Not Available Not Available No t Available benzonatate 100 mg capsule TAKE ONE CAPSULE BY MOUTH THREE TIMES DAILY FOR SEVEN DAYS NEEDED FOR cough. active Not Available Not Available No t Available losartan 25 mg tablet TAKE ONE TABLET BY MOUTH EVERY DAY. active Not Available Not Available No t Available furosemide 20 mg tablet TAKE ONE TABLET BY MOUTH TWICE DAILY. active Not Available Not Available No t Available metoprolol tartrate 25 mg tablet TAKE ONE TABLET BY MOUTH TWICE DAILY. active Not Available Not Available No t Available duloxetine 20 mg capsule,delaye d release TAKE ONE CAPSULE BY MOUTH DAILY. DO not CRUSH OR chew. active Not Available Not Available No t Available Humalog KwikPen (U-100) Insulin 100 unit/mL subcutaneous Inject max of 14 units THREE TIMES DAILY. active Not Available Not Available No t Available Xarelto 15 mg tablet TAKE 1 TABLET BY MOUTH EVERY DAY WITH DINNER active Not Available Not Available No t Available Xarelto 20 mg tablet TAKE 1 TABLET BY MOUTH EVERY DAY active Not Available Not Available No t Available Sure Comfort Pen Needle 32 gauge x /32 USE directed active Not Available Not Available No t Available Tresiba FlexTouch U-100 insulin 100 unit/mL (3 mL) subcutaneous pen Inject 15 units under the skin AT BEDTIME active Not Available Not Available No t Available Vitals Date Recorded Body weight Heart rate Respiratory rate Body temperature Oxygen saturation Oxygen saturation in Arterial blood by Pulse oximetry Systolic And Diastolic Provider Name and Address Organization Details Last Updated DateTime 5 60852.7 g 78 /min 16 /min 97.5 [degF] 99 % 99 % 138/82 mm[Hg] NANI NEL [facility] 5 15:43:43 Social History None recorded. Functional Status None recorded. Mental Status None recorded. Family History Nothing Reported. Medical History No medical history recorded. Gynecological HistoryNo gynecological history recorded. Obstetrics History GPAL:G 0 P 0 0 0 0 Immunizations Vaccine Type Date Status Note Provider Nam e and Address Organization Details Recorded Time Pneumococcal conjugate PCV 13 5 completed Not Available [facility] 03/01/2025 14:51:24 zoster recombinant 9 completed Not Available [facility] 03/01/2025 14:51:24 Influenza, high-dose, trivalent, PF 9 completed Not Available [facility] 03/01/2025 14:51:24 zoster recombinant 0 completed Not Available [facility] 03/01/2025 14:51:24 pneumococcal polysaccharide PPV23 0 completed Not Available [facility] 03/01/2025 14:51:24 COVID-19, mRNA, LNP-S, PF, 100 mcg/0.5mL dose or 50 mcg/0.25mL dose 1 completed Not Available [facility] 03/01/2025 14:51:24 COVID-19, mRNA, LNP-S, PF, 100 mcg/0.5mL dose or 50 mcg/0.25mL dose 1 completed Not Available [facility] 03/01/2025 14:51:24 Influenza, adjuvanted, quadrivalent, PF 1 completed Not Available [facility] 03/01/2025 14:51:24 COVID-19, mRNA, LNP-S, PF, 100 mcg/0.5mL dose or 50 mcg/0.25mL dose 1 completed Not Available [facility] 03/01/2025 14:51:24 COVID-19, mRNA, LNP-S, PF, 100 mcg/0.5mL dose or 50 mcg/0.25mL dose 2 completed Not Available [facility] 03/01/2025 14:51:24 Influenza, high-dose, quadrivalent, PF 2 completed Not Available [facility] 03/01/2025 14:51:24 COVID-19, mRNA, LNP-S, bivalent, PF, 50 mcg/0.5 mL or 25mcg/0.25 mL dose 2 completed Not Available [facility] 03/01/2025 14:51:24 COVID-19, mRNA, LNP-S, bivalent, PF, 50 mcg/0.5 mL or 25mcg/0.25 mL dose 3 completed Not Available [facility] 03/01/2025 14:51:24 Influenza, split virus, trivalent, preservative 3 completed Not Available [facility] 03/01/2025 14:51:24 COVID-19, mRNA, LNP-S, PF, 50 mcg/0.5 mL 3 completed Not Available [facility] 03/01/2025 14:51:24 RSV, bivalent, protein subunit RSVpreF, diluent reconstituted, 0.5 mL, PF 4 completed Not Available [facility] 03/01/2025 14:51:24 COVID-19, mRNA, LNP-S, PF, 50 mcg/0.5 mL 4 completed Not Available [facility] 03/01/2025 14:51:24 Td (adult), 5 Lf tetanus toxoid, preservative free, adsorbed 4 completed Not Available [facility] 03/01/2025 14:51:24 Influenza, high-dose, trivalent, PF 4 completed Not Available [facility] 03/01/2025 14:51:24 Past Encounters Encounter ID Performer Location Encounter Start Date Encounter Closed Date Diagnosis/Indication Diagnosis SNOMED-CT Code Diagnosis ICD10 Code Diagnosis IMO Codes Diagnosis Note [id number] Carlos Worthington DO [facility]) [address] [place] [address] 03/01/2025 14:50:48 03/03/2025 11:05:28 Post-discharge follow-up 800508038 Z09 042172 Metabolic acidosis 52465 009 E87.20 74044 Chronic ob structive pulmonary disease 38911188 J44.9 65713258 Hypertensi ve heart disease 25159319 I11.9 744101 Acute kidney injury 1466 9001 N17.9 N18.9 41397770 Anemia 599185096 D64.9 [id number] Health Concerns Section Related Observation LastModified by Organization Detai ls LastModified Time None Recorded Concern Status LastModified by Organization Details LastModified Time None Recorded Advance Directives Directive None Recorded Payers Insurance Date Sequence Insurance Name Policy Number Policy Hamm Covered Member ID Hamm Member ID Guarantor Name 03/01/2025 1 [place] S Idalia Chavarria [employer] [id number] [employer] 03/03/2025 2 [employer] (MEDICARE SUPPLEMENT) Idalia [employer]l [id number] Idalia [employer] 03/03/2025 [place] - [place] - [facility] (MEDICARE) Idalia D Carel [id number] [employer]alia [employer] Notes Date Note Type Note Provider Name and Address Organization Details Recorded Time 5 text/html HypertensionReported by PatientHPIFor severity, patient reportsgrade 1 (130-139/80-89). For duration, patient reportshas noted for years. For alleviating factors, patient reportsmedication.ROS as noted in the HPI New admit, hospital follow up. admitted for metabolic acidosis. Carlos Worthington DO [address] [place], [address], [facility], [place] 03/02/2025 17:39:20 OBGyn Episode No OBEpisode recorded.
--- OUTSIDE RECORDS SUMMARY | 2025-06-14 14:40 | XMS_ITS | Clinical Summary ---
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
--- OUTSIDE RECORDS SUMMARY | 2025-06-14 14:40 | XMS_ITS | Encounter Summary ---
Author Organization [facility] Address [address] [place] [address] Care Team Providers Care Tour Narrator Name Role Phone Unavailable Primary Care Provider Unavailabl e Encounter Details Date Type Department Care Team (Latest Contact Info) Description 04/03/1999 Outpatient Historical [facility] Medicine [address] [phone] Jennifer Newsome MD [address] [place] [phone] Pain in limb (Primary Dx); Unspecified essential hypertension; Symptomatic menopausal or female climacteric states Social History Tobacco Use Types Packs/Day Years Used Date Smoking Tobacco: Never Assessed Comments Unknown Sex and Gender Information Value Date Recorded Sex Assigned at Not on file 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
--- OUTSIDE RECORDS SUMMARY | 2025-06-14 14:40 | XMS_ITS | Encounter Summary ---
Author Organization [facility] Address [address] [place] [address] Care Team Providers Care Grounds Caretaker Name Role Phone Unavailable Primary Care Provider Unavailabl e Encounter Details Date Type Department Care Team (Late st Contact Info) Description 07/09/2001 Outpatient Historical [facility] [address] [address] Idalia Mojica MD NO ADDRESS ON FILE SCREENING MAMM-MAILG NEOPL-OTHER (Primary Dx) Social History Tobacco Use Types Packs/Day Years Used Date Smoking Tobacco: Never Assessed Comments Unknown Sex and Gender Information Value Date Recorded Sex Assigned at Not on file 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
--- OUTSIDE RECORDS SUMMARY | 2025-06-14 14:40 | XMS_ITS | Encounter Summary ---
Author Organization [facility] Address [address] [place] [address] Care Team Providers Care Hammer Smith Name Role Phone Unavailable Primary Care Provider Unavailabl e Encounter Details Date Type Department Care Team (Latest Contact Info) Description 11/02/1998 Outpatient Historical [facility] Medicine [address] [phone] Jennifer Newsome MD [address] [place] [phone] Unspecified essential hypertension (Primary Dx) Social History Tobacco Use Types Packs/Day Years Used Date Smoking Tobacco: Never Assessed Comments Unknown Sex and Gender Information Value Date Recorded Sex Assigned at Not on file 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
--- OUTSIDE RECORDS SUMMARY | 2025-06-14 14:40 | XMS_ITS | Clinical Summary ---
Author Organization [facility] [employer], [facility] Address [address] [place] [address] Phone Care Team Providers Care Building Operator Name Role Phone Adia Woodson MD Primary Care Provider + [phone] Allergies Active Allergy Reactions Criticality Noted Date Comments Atenolol 02/24/2025 Lisinopril 02/24/2025 Medications HYDROcodone-ford taminophen (NORCO) 5-325 MG per tablet Take 1 tablet by mouth every 6 (six) hours if needed for moderate pain Active amLODIPine (NORVASC) 10 MG tablet Take 5 mg by mouth 1 (one) time each day 5 Active cloNIDine (CATAPRES) 0.1 MG tablet Take 0.1 mg by mouth in the morning and 0.1 mg in the evening. Active CRANBERRY PO Take by mouth Act juan m DULoxetine (CYMBALTA) [address] capsule Take 20 mg by mouth 1 (one) time each day Do not crush or chew. Active estradiol (ESTRACE) 0.5 MG tablet 5 Active gabapentin (NEURONTIN) 100 MG tablet Take by mouth in the morning and in the evening. 5 Active glipiZIDE (GLUCOTROL) 5 MG tablet Take 5 mg by mouth in the morning and 5 mg in the evening. Take before meals. Active albuterol HFA (PROVENTIL HFA;VENTOLIN HFA) 108 (90 Base) MCG/ACT inhaler Inhale 5 Active simvastatin (ZOCOR) 20 MG tablet Take by mouth 5 Active tiZANidine (ZANAFLEX) 4 MG tablet Take 4 mg by mouth at bed time 5 Active traMADol (ULTRAM) 50 MG tablet TAKE ONE TABLET BY MOUTH EVERY 12 hours NEEDED FOR pain. 5 Active triamcinolone (KENALOG) 0.1 % cream Apply topically Active Xarelto 15 MG tablet Take 15 mg by mouth 1 (one) time each day with dinner Active metoprolol tartrate 25 MG tablet Take 25 mg by mouth in the morning and 25 mg in the evening. 5 Active Tresiba FlexTouch 100 UNIT/ML injection Inject 15 units under the skin AT BEDTIME 5 Active bumetanide (BUMEX) 1 MG tablet Take 1 mg by mouth 1 (one) time each day 5 Active HumaLOG KWIKPEN 100 UNIT/ML solution pen-injector Inject max of 14 units THREE TIMES DAILY. 5 Active potassium chloride 10 MEQ CR tablet Take 10 mEq by mouth 1 (one) time each day Do not crush, chew, or split. Active ferrous sulfate 325 (65 Fe) MG tablet Take 325 mg by mouth 1 (one) time each day with breakfast Active Multiple Vitamins-Minera ls (VISTA ADVANCED AREDS2 FORMULA PO) Take by mouth Acti ve Calcium Carb-Cholecalci ferol 600-12.5 MG-MCG capsule Take by mouth A ctive Piercy-3 Fatty Acids (HAITIAN SALMON OIL PO) Take by mouth A ctive UNABLE TO FIND 9,000 mg in the morning and 9,000 mg in the evening. Med Name: [place] Cinnamon w/ bitter melon caps. Active Active Problems Problem Noted Date Diagnosed Date Type 2 diabetes mellitus wit h diabetic chronic kidney disease 04/27/2025 Chronic combined systolic an d diastolic congestive heart failure 04/27/2025 Bilateral lower limb edema 04/27/2025 Chronic kidney disease stage 3 04/27/2025 Hypertensive heart disease without congestive he art failure 02/24/2025 Hypertensive heart disease without congestive he art failure 02/24/2025 Vitamin deficiency 02/24/2025 Encounters Date Type Department Care Team Description 04/27/2025 1:00 PM CDT Office Visit [facility] [address] [facility] [address] [place] [address] Fran Uriostegui MD Chronic kidney disease stage 4 (HCC) (Primary Dx); Hypercalcemia 04/27/2025 Telephone [facility], [facility] [address] [place] [phone] Isi Roman 04/27/2025 Documentation Only [facility], [facility] [address] [place] [phone] [facility] 04/27/2025 Documentation Only [facility] [address] [place] [phone] Irina, [facility] 04/27/2025 Documentation Only [facility] [address] [place] [phone] Irina, [facility] 04/27/2025 Telephone [facility], [facility] [address] [place] [phone] Irina, [facility] 04/06/2025 Documentation Only [facility], [facility] [address] [place] [phone] Fran Uriostegui MD from Last 3 Months Social History Tobacco Use Types Packs/Day Years Used Date Smoking Tobacco: Never Smokeless Tobacco: Never Tobacco Cessation:Counseling Given: Not Answered Alcohol Use Standard Drinks/Week Comments Never 0 (1 standard drink = 0.6 oz pur e alcohol) Comments Unknown Sex and Gender Information Value Date Recorded Sex Assigned at Not on file Legal Sex Female 4:41 PM EDT Gender Identity Not on file Sexual Orientation Not on file Last Filed Vital Signs Vital Sign Reading Time Taken Comments Blood Pressure 98/52 04/27/2025 12:47 PM CDT Pulse 76 04/27/2025 12:47 PM CDT Temperature - - Respiratory Rate - - Oxygen Saturation 99% 04/27/2025 12:47 PM CDT Inhaled Oxygen Concentration - - Weight 75.1 kg (165 lb 9.6 oz) 04/27/2025 12:47 PM CDT Height 161.3 cm (5' 3.5 ) 04/27/2025 12:47 PM CD T Body Mass Index 28.87 04/27/2025 12:47 PM CDT Plan of Treatment Upcoming Encounters Date Type Department Care Team (Late st Contact Info) Description 06/17/2025 12:30 PM CDT Office Visit [facility] [address] [place] [address] Fran Uriostegui MD [address] [facility] [address] [place] [address] Health Maintenance Due Date Last Done Comments Diabetes: Hemoglobin A1C 04/27/2025 Diabetes: Ophthalmology Exam 04/27/2025 Diabetes: Pedal Pulse Checked 04/27/2025 Diabetes: Sensory Foot Exam 04/27/2025 Diabetes: Visual Foot Exam 04/27/2025 Influenza Vaccine (#1) 2025 , 07/04/2021, 05/15/2019, Additional history exists Pneumococcal Vaccine: 50+ Years Completed 05/27/2020, 07/18/2015, 06/02/2010 Hepatitis B Vaccine Aged Out No longe r eligible based on patient's age to complete this topic Procedures Procedure Name Priority Date/Time Associated Diagnosis Comments POCT URINALYSIS, AUTO, W/O SCOPE Routine 04/27/2025 2:33 PM CDT Chronic kidney disease stage 4 (HCC) CBC (INCLUDES DIFF/PLT) (EXTERNAL LAB ENTRY) Routine 04/12/2025 RENAL FUNCTION PANEL (EXTERNAL LAB ENTRY) Routine 04/12/2025 CBC (INCLUDES DIFF/PLT) (EXTERNAL LAB ENTRY) Routine 03/23/2025 RENAL FUNCTION PANEL (EXTERNAL LAB ENTRY) Routine 03/23/2025 VITAMIN D, 25-OH (D2,D3) (EXTERNAL LAB ENTRY) Routine 03/15/2025 CBC (INCLUDES DIFF/PLT) (EXTERNAL LAB ENTRY) Routine 03/15/2025 COMPREHENSIVE METABOLIC PANEL (CMP) (EXTERNAL LAB ENTRY) Routine 03/15/2025 from Last 3 Months Results * (ABNORMAL) POCT urinalysis auto, w/o scope (04/27/2025 2:33 PM CDT) Color, UA Yellow Clarity, UA Clear Glucose, UA Negative mg/dL Bilirubin, UA Negative Ketones, UA Negative Urine Specific [place] 1.010 Blood, UA Trace - Intact Barber/ul pH, UA 6.0 Protein, UA 30 1+ mg/dL Urobilinogen, UA 0.2 Leukocytes, UA Negative Nitrite, UA Negative Urine 04/27/2025 2:33 PM CDT Fran Uriostegui MD POINT OF CARE TEST OR DERABLES Final Result * CBC (Includes Diff/Plt) (External Lab) (04/12/2025) Only the most recent of3 resultswithin the time period is included. WBC 5.9 K/uL Red Blood Cell Count 3.56 Hemoglobin 10.4 g/dL Hematocrit 33.4 % MCV 93.8 MCH 29.2 MCHC 31.1 RDW 14.0 Platelet Count 252 MPV 12.2 Absolute Neutrophils 3.4 Absolute Lymphocytes 1.5 Absolute Monocytes 0.8 Absolute Eosinophils 0.2 Absolute Basophils 0.0 Neutrophils 58.1 K/uL Lymphocytes 25.7 Monocytes 12.7 Eosinophils 3.0 Basophils 0.3 Blood 04/12/2025 Historical Provider LAB BLOOD ORDERABLES Mady l Result * Renal Function Panel (External Lab) (04/12/2025) Only the most recent of2 resultswithin the time period is included. Glucose 168 mg/dL BUN 65 mg/dL eGFR Non-Afr Latvian 16 Sodium 137 mEq/L Potassium 4.7 mEq/L Chloride 96 Carbon Dioxide 30 mmol/L Calcium 11.2 mg/dL Creatinine 2.87 mg/dL Anion Gap 11 Blood 04/12/2025 Historical Provider MD LAB BLOOD ORDERABLES Mady l Result * Comprehensive Metabolic Panel (CMP) (03/15/2025) Glucose 186 mg/dL BUN 67 mg/dL Creatinine 3.26 mg/dL Sodium 140 mEq/L Potassium 4.0 mEq/L Chloride 99 Carbon Dioxide 32 mmol/L Calcium 10.3 mg/dL Albumin (Blood) 3.5 g/dL AST (SGOT) 25 U/L ALT (SGPT) 16 U/L Alkaline Phosphatase 38 U/L Total Bilirubin 0.30 MG/DL eGFR Non-Afr Latvian 14 Total Protein, Serum 7.2 Anion Gap 9 Blood 03/15/2025 Result [facility] Provider MD LAB BLOOD ORDERABLES Mady l Result * Vitamin D, 25-OH (D2,D3) (External Lab) (03/15/2025) Vitamin D, 25-OH, Total 41.0 ng/mL Blood 03/15/2025 Result [facility] Provider MD LAB BLOOD ORDERABLES Mady l Result from Last 3 Months Insurance Medicare [facility] Care Teams Building Operator Relationship Specialty Start Date End Date Adia Woodson MD [address] [place] [address] PCP - General Family Medicine 01/01/25
--- OUTSIDE RECORDS SUMMARY | 2025-06-14 14:40 | XMS_ITS | Encounter Summary ---
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
[2025-06-14 14:41] VITALS: BP 156/85; PULSE 52; RESP 18; TEMP 36.6; O2SAT 100
[2025-06-14 15:04] VITALS: BP 139/74; O2SAT 97
--- NOTE | 2025-06-14 15:10 | W.ED.WOUNDLC ---
HPI - Wound/Laceration General: Chief Complaint: Wound/Laceration Stated Complaint: Sore on Right leg Time Seen by Provider: 06/14/25 14:50 History of Present Illness: 79-year-old female presents emergency room she has chronic venous stasis edema of lower extremities she recently noticed a wound after the skin had essentially been torn off its 4 inches by approximately an inch and a half there is no active bleeding or redness she has had serous drainage from it the last couple of days no fever sweats or chills Related Data Home Medications ?Medication ?Instructions ?Recorded ?Confirmed albuterol sulfate 90 mcg/actuation 1 inh inhalation Q4H PRN Wheezing 11/27/19 02/19/25 aerosol inhaler (ProAir HFA) amlodipine 10 mg tablet 10 mg PO DAILY 11/27/19 02/19/25 duloxetine 20 mg capsule,delayed 20 mg PO BEDTIME 11/27/19 02/19/25 release sprinkle estradiol 0.25 mg PO DAILY 11/27/19 02/19/25 gabapentin 100 mg capsule 200 mg PO BID 11/27/19 02/19/25 hydrocodone 5 mg-acetaminophen 325 1 tab PO TID PRN Pain 11/27/19 02/19/25 mg tablet ([place]) meclizine 25 mg tablet 25 mg PO QID PRN Dizziness Or 11/27/19 02/19/25 Vertigo rivaroxaban 20 mg tablet (Xarelto) 15 mg PO QPM 11/27/19 02/19/25 simvastatin 20 mg tablet 20 mg PO QPM 11/27/19 02/19/25 tramadol 50 mg tablet 50 mg PO BID PRN Pain 11/27/19 02/19/25 ascorbic acid (vitamin C) 1,000 mg 1,000 mg PO DAILY 02/19/25 02/19/25 tablet (Vitamin C With Yael Hips) biotin 10,000 mcg capsule 10,000 mcg PO DAILY 02/19/25 02/19/25 calcium 600 mg (as 2 tab PO DAILY 02/19/25 02/19/25 carbonate)-vitamin D3 10 mcg (400 unit) tablet (Calcium 600 + D(3)) cinnamon bark 9,000 mg PO QPM 02/19/25 02/19/25 clonidine HCl 0.1 mg tablet 0.1 mg PO BEDTIME 02/19/25 02/19/25 cranberry extract 500 mg capsule 500 mg PO DAILY 02/19/25 02/19/25 cyanocobalamin (vitamin B-12) 1,000 mcg PO DAILY 02/19/25 02/19/25 1,000 mcg tablet (Vitamin B-12) erythromycin 2 % topical ointment 1 ea topical DAILY PRN Skin 02/19/25 02/19/25 Irritation fenofibric acid (choline) 45 mg 45 mg PO DAILY 02/19/25 02/19/25 capsule,delayed release folic acid 800 mcg tablet 0.8 mg PO DAILY 02/19/25 02/19/25 melatonin 5 mg tablet 5 mg PO BEDTIME 02/19/25 02/19/25 mupirocin 2 % topical ointment 1 applic topical TID PRN Skin 02/19/25 02/19/25 Irritation nystatin 100,000 unit/gram topical 1 applic topical TID PRN Skin 02/19/25 02/19/25 cream Irritation pyridoxine (vitamin B6) 100 mg 100 mg PO DAILY 02/19/25 02/19/25 tablet (Vitamin B-6) salmon oil-omega-3 fatty acids 1 cap PO DAILY 02/19/25 02/19/25 1,000 mg-200 mg capsule tizanidine 4 mg tablet 4 mg PO BEDTIME 02/19/25 02/19/25 triamcinolone acetonide 0.1 % 1 applic topical DAILY PRN Skin 02/19/25 02/19/25 topical cream Irritation vit C 250 mg-vit E 90 mg-zinc 40 1 tab PO BID 02/19/25 02/19/25 mg-copper 1 [id number] capsule ([facility] AREDS-2) vitamin E (dl, acetate) 180 mg 180 mg PO DAILY 02/19/25 02/19/25 (400 unit) capsule zinc 50 mg tablet 50 mg PO DAILY 02/19/25 02/19/25 Previous Rx's ?Medication ?Instructions ?Recorded furosemide 20 mg tablet 20 mg PO BID 30 days #60 tabs 02/24/25 insulin lispro 100 unit/mL See Rx Instructions .Route 02/24/25 subcutaneous pen (Humalog KwikPen .COMPLEX #15 mL (U-100) Insulin) pen needle, diabetic 31 gauge x #100 ea 02/24/2509/05 (1st Tier Unifine Pentips) mupirocin 2 % topical ointment 1 applic topical BID #22 grams 06/14/25 (Centany) Allergies Allergy/AdvReac Type Severity Reaction Status Date / Time atenolol Allergy Severe breathing Verified 06/14/25 14:51 trouble after one year lisinopril Allergy Severe ALGY-Anaphy Verified 06/14/25 14:51 laxis PFSH ED PFSH: Medical History Hypertension Diabetes mellitus Pain in thoracic spine Chronic back pain Right hip pain Bursitis, trochanteric Lumbar spondylosis Intervertebral disc disorders with radiculopathy, lumbosacral region Spinal stenosis, lumbar region with neurogenic claudication Cervical disc disorder, unspecified, unspecified cervical region Encounter for long-term opiate analgesic use Surgical History Hx of tonsillectomy Hx of vaginal hysterectomy H/O oophorectomy Family History Other CAD (coronary artery disease) Cancer Stroke Social History Smoking and tobacco/nicotine status: never used tobacco/nicotine Alcohol intake: never Substance/Drug Use: never Physical Exam Extremity: OTHER: Examination of the lateral right lower leg there is a proximately 4 inch x 1-1/2 inch oval-shaped area of debridement of the superficial layers of the skin no active bleeding no purulence no localized erythema. 2+ edema bilaterally lower extremities Course Vital Signs: Vital signs: Vital Signs Temperature 97.8 F 06/14/25 14:41 Pulse Rate 52 L 06/14/25 14:41 Respiratory Rate 18 06/14/25 14:41 Blood Pressure 139/74 06/14/25 15:04 Pulse Oximetry 97 06/14/25 15:04 Oxygen Delivery Me thod Room Air 06/14/25 15:04 MDM - Wound/Laceration Medical Decision Making Chronic venous stasis edema with abrasion of the superficial layer of skin. Not infected at this time apply topical antibiotic ointment dress wound twice daily and refer to wound care clinic Medical Records I reviewed the patient's medical records. No radiology studies performed this visit Discharge Plan Discharge Patient Disposition: Home Clinical Impression: Abrasion of skin of right lower leg, Edema of right lower leg due to venous stasis Condition: Stable Prescriptions: New mupirocin [[place]] 2 % ointment 1 applic topical BID Qty: 22 1RF No Action hydrocodone-acetaminophen [[place]] 5-325 mg tablet 1 tab PO TID PRN (Reason: Pain) amlodipine 10 mg tablet 10 mg PO DAILY estradiol 0.25 mg PO DAILY albuterol sulfate [ProAir HFA] 90 mcg/actuation HFA aerosol inhaler 1 inh INHALATION Q4H PRN (Reason: Wheezing) simvastatin 20 mg tablet 20 mg PO QPM tramadol 50 mg tablet 50 mg PO BID PRN (Reason: Pain) Xarelto 20 mg tablet 15 mg PO QPM gabapentin 100 mg capsule 200 mg PO BID meclizine 25 mg tablet 25 mg PO QID PRN (Reason: Dizziness Or Vertigo) duloxetine 20 mg capsule, delayed rel sprinkle 20 mg PO BEDTIME clonidine HCl 0.1 mg tablet 0.1 mg PO BEDTIME tizanidine 4 mg tablet 4 mg PO BEDTIME erythromycin 2 % Ointment 1 ea TOPICAL DAILY PRN (Reason: Skin Irritation) triamcinolone acetonide 0.1 % Cream 1 applic TOPICAL DAILY PRN (Reason: Skin Irritation) nystatin 100,000 unit/gram Cream 1 applic TOPICAL TID PRN (Reason: Skin Irritation) mupirocin 2 % Ointment 1 applic TOPICAL TID PRN (Reason: Skin Irritation) fenofibric acid (choline) 45 mg capsule,delayed release(DR/EC) 45 mg PO DAILY cyanocobalamin (vitamin B-12) [Vitamin B-12] 1,000 mcg Tablet 1,000 mcg PO DAILY biotin 10,000 mcg Capsule 10,000 mcg PO DAILY pyridoxine (vitamin B6) [Vitamin B-6] 100 mg Tablet 100 mg PO DAILY folic acid 800 mcg Tablet 0.8 mg PO DAILY cranberry extract 500 mg Capsule 500 mg PO DAILY Rx Instructions: administer with meals calcium carbonate-vitamin D3 [Calcium 600 + D(3)] 600 mg-10 mcg (400 unit) Tablet 2 tab PO DAILY salmon oil-omega-3 fatty acids 1,000-200 mg Capsule 1 cap PO DAILY Eye Health AREDS-2 250-90-40-1 mg Capsule 1 tab PO BID ascorbic acid (vitamin C) [Vitamin C With Yael Hips] 1,000 mg Tablet 1,000 mg PO DAILY zinc 50 mg Tablet 50 mg PO DAILY vitamin E (dl, acetate) 180 mg (400 unit) Capsule 180 mg PO DAILY cinnamon bark 9,000 mg PO QPM melatonin 5 mg Tablet 5 mg PO BEDTIME furosemide 20 mg tablet 20 mg PO BID 30 Days Qty: 60 0RF insulin lispro [Humalog KwikPen Insulin] 100 unit/mL insulin pen See Rx Instructions .ROUTE .COMPLEX Qty: 15 0RF Rx Instructions: Low dose sliding scale as instructed in discharge instructions (DME) pen needle, diabetic [1st Tier Unifine Pentips] 31 gauge x 1/4 needle See Rx Instructions .Route Qty: 100 0RF Rx Instructions: As directed Discharge Orders: Discharge ED (Routine); Ordered 06/14/25 Ordered By: Mark Buitrago Referrals: Funez,Alexandra, [employer] [Primary Care Provider, Nurse Practitioner] Discharge Diet: Usual diet Discharge Activity: Increase activity as tolerated Patient Instructions: Opioid Safety, Pain Management, Patient Portal & Bina Instructions Activity Restrictions/Additional Instructions: [facility] you [facility]. It is very important that you follow up as instructed or that you return to the Emergency Department should you have concerns or if your condition changes or worsens in any way. Emergency department visits are focused on emergent conditions, in some cases you may require further evaluation on an outpatient basis. You were seen in the emergency room with an abrasion on your right lower leg. The skin there is fragile due to your chronic venous stasis edema and the superficial layers of skin were abraded off. Apply topical antibiotic ointment that you were prescribed to the wound twice a day and keep covered. Case management make arrangements for you to follow-up with the wound care clinic. (Please note that included in your discharge packet is information concerning opioid safety and pain management. This information is given to all patients were discharged from the ER regardless of their discharge diagnosis or the medicines they usually take or are prescribed.) Print Language: Ukrainian Coding Level of Care Code ED Senior Service Aide for Eddie Elena
[2025-06-14] MEDS: bacitracin ointment Pkt 1 EACH TOPICAL (15:23)
[2025-06-14 15:31] VITALS: BP 139/74; PULSE 57; RESP 16; O2SAT 97
--- NOTE | 2025-06-15 16:18 | PC.NURSE ---
Wound care referral sent.
== END 2025-06-14 15:32 | disposition home or self-care (01) ==
PROVIDERS: Emergency Provider Family Medicine; PCP Nurse Practitioner Family
DX: S80.811A Abrasion, right lower leg, initial encounter (principal); I87.8 Other specified disorders of veins; R60.0 Localized edema; Z79.4 Long term (current) use of insulin; E11.9 Type 2 diabetes mellitus without complications; I10 Essential (primary) hypertension; X58.XXXA Exposure to other specified factors, initial encounter
CPT/HCPCS: 99283; J9999

== ENCOUNTER → 2025-06-18 08:07 | Outpatient (BNVA) | payer MEDICARE, OTHER, SELFPAY | PROVIDERS: PCP Nurse Practitioner Family; Visit Provider Thoracic Surgery (Cardiothoracic Vascular Surgery) | DX: E11.52 Type 2 diabetes mellitus with diabetic peripheral angiopathy with gangrene (principal); E11.622 Type 2 diabetes mellitus with other skin ulcer; L97.811 Non-pressure chronic ulcer of other part of right lower leg limited to breakdown of skin | CPT/HCPCS: 97597; 99213 ==

== ENCOUNTER → 2025-06-28 08:44 | Outpatient (BNVA) | payer MEDICARE, OTHER, SELFPAY | PROVIDERS: PCP Nurse Practitioner Family; Visit Provider Thoracic Surgery (Cardiothoracic Vascular Surgery) | DX: Z09 Encounter for follow-up examination after completed treatment for conditions other than malignant neoplasm (principal); Z87.2 Personal history of diseases of the skin and subcutaneous tissue | CPT/HCPCS: 99212; A6212 ==

== ENCOUNTER 2025-07-05 10:23 | Outpatient (CLI) | payer MEDICARE, OTHER, SELFPAY ==
--- NOTE | 2025-07-05 10:31 | MM_ITS ---
WS: [id number] BILATERAL SCREENING DIGITAL TOMOSYNTHESIS MAMMOGRAM WITH CAD HISTORY: SCREENING COMPARISON: 06/25/2024, 06/17/2023, 01/23/2021 Bilateral CC and MLO views with tomosynthesis and synthetic mammography submitted. Computer aided detection analyzed. Quality of this examination is compromised by breast folds and patient positioning. Breast composition: There are scattered areas of fibroglandular density. No suspicious masses, microcalcifications or architectural distortion. Extensive bilateral vascular calcifications and scattered benign calcifications. There is a biopsy clip in the central LEFT breast. No new or suspicious mass identified. MM/MM scr BI tomosynthesis [id number] IMPRESSION: BI-RADS: 2 - Benign. FOLLOW UP: 1 Year Follow-up
== END 2025-07-05 10:24 | disposition home or self-care (01) ==
LOC: RAD 10:25
PROVIDERS: PCP Nurse Practitioner Family; Visit Provider Nurse Practitioner Family
DX: Z12.31 Encounter for screening mammogram for malignant neoplasm of breast (principal); R92.323 Mammographic fibroglandular density, bilateral breasts; R92.1 Mammographic calcification found on diagnostic imaging of breast; Z96.89 Presence of other specified functional implants
CPT/HCPCS: 77063; 77067

== ENCOUNTER → 2025-07-08 14:48 | Outpatient (BNVA) | payer MEDICARE, OTHER, SELFPAY | PROVIDERS: PCP Nurse Practitioner Family; Referring Provider Nurse Practitioner Family; Visit Provider Internal Medicine Cardiovascular Disease | DX: I48.20 Chronic atrial fibrillation, unspecified (principal); Z79.01 Long term (current) use of anticoagulants; I13.0 Hypertensive heart and chronic kidney disease with heart failure and stage 1 through stage 4 chronic kidney disease, or unspecified chronic kidney disease; N18.31 Chronic kidney disease, stage 3a; I50.32 Chronic diastolic (congestive) heart failure; E78.2 Mixed hyperlipidemia; E78.5 Hyperlipidemia, unspecified; E86.0 Dehydration; I48.91 Unspecified atrial fibrillation; N17.9 Acute kidney failure, unspecified | CPT/HCPCS: 36415; 80048; 83880; 99204 ==